=== PATIENT | female | born 1990 | race Caucasian/White ===

== ENCOUNTER 2019-02-10 21:55 | Emergency (ER) | payer OTHER ==
[2019-02-10 22:34] LABS: BILIRUBIN,URINE NEGATIVE (NEGATIVE); GLUCOSE, URINE (UA) NEGATIVE (NEGATIVE); KETONES,URINE (UA) NEGATIVE (NEGATIVE); LEUKOCYTE ESTERASE, URINE TRACE (NEGATIVE); NITRITE,URINE NEGATIVE (NEGATIVE); OCCULT BLOOD,URINE TRACE-INTA (NEGATIVE); PH,URINE 6.5 PH (5.0-7.5); PROTEIN,URINE NEGATIVE (NEGATIVE); UROBILINOGEN,URINE 0.2 (NORMAL) E.U./dL (NORMAL)
[2019-02-10] MEDS ORDERED: NITROFURANTOIN MACRO 100 MG CAPSULE PO STA (22:35)
[2019-02-10 22:38] LABS: CLARITY,URINE CLEAR (CLEAR)
--- NOTE | 2019-02-10 22:38 | ED Physician Documentation ---
PD HPI FEMALE - Stated complaint Stated Complaint: 14 WKS/FEM - Chief complaint Chief Complaint: UTI - History obtained from History obtained from: Patient - History of Present Illness Timing - onset: Today Timing - duration: Days (1) Timing - details: Gradual onset Pain level max: 5 Pain level max: 4 Associated symptoms: Back pain (low back), Dysuria, Urinary frequency. 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 : Chronic bladder infection Psych: Depression, Anxiety Musculoskeletal: None Derm: Psoriasis - Past Surgical History Past Surgical History: No - Present Medications Home Medications: Ambulatory Orders Medication Instructions Recorded Confirmed Nitrofurantoin Monohyd/M-Cryst 100 mg PO BID #10 capsule 02/10/19 [Macrobid 100 mg Capsule] Pnv No.95/Ferrous Fum/Folic AC 1 each PO DAILY 02/10/19 02/10/19 [ Caplet] - Allergies Allergies/Adverse Reactions: Allergies Allergy/AdvReac Type Severity Reaction Status Date / Time No Known Drug Allergies Allergy Verified 02/10/19 22:05 - Social History Does the pt smoke?: No Smoking Status: Never smoker Does the pt drink ETOH?: No Does the pt have substance abuse?: No Substance Use and Type: Marijuana - Immunizations Immunizations are current?: Yes PD ED PE NORMAL - Vitals Vital signs reviewed: Yes - General General: Alert and oriented X 3, No acute distress - HEENT HEENT: Moist mucous membranes - Cardiac Cardiac: RRR - Respiratory Respiratory: No respiratory distress, Clear bilaterally - Abdomen Abdomen: Soft, Non tender, Non distended - Back Back: No CVA TTP - Derm Derm: Warm and dry - Extremities Extremities: No edema - Neuro Neuro: Alert and oriented X 3 Results - Vitals Vitals: Vital Signs - 24 hr 02/10/19 02/10/19 22:00 22:50 Temperature 37.2 C Heart Rate 93 82 Respiratory 16 14 Rate Blood Pressure 138/73 H 131/74 H O2 Saturation 100 100 Oxygen O2 Source Room air - Labs Labs: Laboratory Tests 02/10/19 22:30 Urine Color YELLOW Urine Clarity CLEAR Urine pH 6.5 Ur Specific Williams 1.015 Urine Protein NEGATIVE Urine Glucose (UA) NEGATIVE Urine Ketones NEGATIVE Urine Occult Blood TRACE-INTA Urine Nitrite NEGATIVE Urine Bilirubin NEGATIVE Urine Urobilinogen 0.2 (NORMAL) Ur Leukocyte Esterase TRACE H Urine RBC 0-5 Urine WBC 0-3 Ur Squamous Epith Cells MOD Squamous H Amorphous Sediment Moderate Urine Bacteria Rare Ur Microscopic Review INDICATED Urine Culture Comments NOT INDICATED PD MEDICAL DECISION MAKING - ED course Complexity details: reviewed results, re-evaluated patient, considered differential, d/w patient ED course: 28-year-old female with sx c/w UTI. UA is unimpressive, but as she is 14 weeks . Pt will follow-up with OB for further care. Abd soft, nt, nd counseled that this could be an early appendicitis, but less likely with no abd tenderness. She will return if she fails to improve as expected. Will place on Macrobid for home. Patient counseled regarding signs and symptoms for which I believe and urgent re-evaluation would be necessary. Patient with good understanding of and agreement to plan and is comfortable going home at this time This document was made in part using voice recognition software. While efforts are made to proofread this document, sound alike and grammatical errors may occur. No vaginal bleeding or discharge. FHR 150bpm on bedside US. FM present. Images shown to mother. Departure - Departure Disposition: Home, Self Care Clinical Impression: Urinary tract infection Qualifiers: Urinary tract infection type: acute cystitis Hematuria presence: without hematuria Qualified Code(s): N30.00 - Acute cystitis without hematuria Condition: Good Instructions: ED UTI Cystitis Female Follow-Up: Paola Rothman MD [Primary Care Provider] - VALERIA RODRIGUEZ [Physician No Access] - Within 1 week Prescriptions: Nitrofurantoin Monohyd/M-Cryst [Macrobid 100 mg Capsule] 100 mg PO BID #10 capsule Comments: Take all antibiotics until gone. Return if you worsen. Return especially for increasing pain fevers or vomiting.
[2019-02-10 22:43] LABS: AMORPHOUS SEDIMENT,UR Moderate /LPF; BACTERIA,URINE Rare /HPF (None Seen); RBC,URINE 0-5 /HPF (0-5); SQUAMOUS EPITHELIAL CELL,UR MOD Squamous (<= Few)
[2019-02-10 22:50] VITALS: BP 131/74
== END 2019-02-10 23:00 | disposition home or self-care (01) ==
LOC: ED 21:55
DX: O99.89 Other specified diseases and conditions complicating pregnancy, childbirth and the puerperium (principal); N30.00 Acute cystitis without hematuria; Z3A.14 14 weeks gestation of pregnancy
CPT/HCPCS: 81001; 99283; 99284; A9270; 81003; 87086

== ENCOUNTER 2019-03-18 19:44 | Emergency (ER) | payer OTHER ==
[2019-03-18 20:18] LABS: BILIRUBIN,URINE NEGATIVE (NEGATIVE); GLUCOSE, URINE (UA) NEGATIVE (NEGATIVE); KETONES,URINE (UA) NEGATIVE (NEGATIVE); LEUKOCYTE ESTERASE, URINE NEGATIVE (NEGATIVE); NITRITE,URINE NEGATIVE (NEGATIVE); OCCULT BLOOD,URINE NEGATIVE (NEGATIVE); PROTEIN,URINE NEGATIVE (NEGATIVE); UROBILINOGEN,URINE 0.2 (NORMAL) E.U./dL (NORMAL)
[2019-03-18 20:20] LABS: CLARITY,URINE CLEAR (CLEAR)
--- NOTE | 2019-03-18 21:17 | ED Physician Documentation ---
PD HPI ABD PAIN - Stated complaint Stated Complaint: FEMALE - OB 19 WEEKS - Chief complaint Chief Complaint: Abd Pain - History obtained from History obtained from: Patient - History of Present Illness Timing - onset: Other (This is a G1 at 19 weeks gestation who helped move a refrigerator a couple of days ago and since then has had bandlike pelvic pain on both sides. No urinary complaints but did a UTI test at home that was positive. No fevers or back pain. No cramping or bleeding.) Review of Systems Constitutional: denies: Fever, Chills GI: denies: Nausea, Vomiting, Constipation, Diarrhea : denies: Dysuria, Frequency PD PAST MEDICAL HISTORY - Past Medical History Past Medical History: Yes Cardiovascular: None Respiratory: None Neuro: Motion sickness Endocrine/Autoimmune: None GI: Ulcers CARD HAND: None : Chronic bladder infection Psych: Depression, Anxiety Musculoskeletal: None Derm: Psoriasis - Past Surgical History Past Surgical History: No - Present Medications Home Medications: Ambulatory Orders Medication Instructions Recorded Confirmed Pnv No.95/Ferrous Fum/Folic AC 1 each PO DAILY 02/10/19 03/18/19 [ Caplet] - Allergies Allergies/Adverse Reactions: Allergies Allergy/AdvReac Type Severity Reaction Status Date / Time No Known Drug Allergies Allergy Verified 03/18/19 19:48 - Social History Does the pt smoke?: No Smoking Status: Never smoker Does the pt drink ETOH?: No Does the pt have substance abuse?: No - Immunizations Immunizations are current?: Yes PD ED PE NORMAL - Vitals Vital signs reviewed: Yes - General General: Alert and oriented X 3, No acute distress - Abdomen Abdomen: Other (Nontender gravid abdomen) - Female Female : Other (Bedside ultrasound shows single live intrauterine with a heart rate of 150) - Extremities Extremities: No edema, No calf tenderness / cord - Neuro Neuro: Alert and oriented X 3, Normal speech Results - Vitals Vitals: Vital Signs - 24 hr 03/18/19 19:48 Temperature 36.4 C L Heart Rate 91 Respiratory 18 Rate Blood Pressure 134/79 H O2 Saturation 100 Oxygen O2 Source Room air - Labs Labs: Laboratory Tests 03/18/19 20:01 Urine Color YELLOW Urine Clarity CLEAR Urine pH 7.0 Ur Specific [place] 1.010 Urine Protein NEGATIVE Urine Glucose (UA) NEGATIVE Urine Ketones NEGATIVE Urine Occult Blood NEGATIVE Urine Nitrite NEGATIVE Urine Bilirubin NEGATIVE Urine Urobilinogen 0.2 (NORMAL) Ur Leukocyte Esterase NEGATIVE Ur Microscopic Review NOT INDICATED Urine Culture Comments NOT INDICATED PD MEDICAL DECISION MAKING - ED course ED course: Nontender abdomen. Suspect this is round ligament pain as our urinalysis was negative. Departure - Departure Disposition: 01 Home, Self Care Clinical Impression: Round ligament pain Condition: Good Record reviewed to determine appropriate education?: Yes Instructions: ED Abdominal Pain Appendx Poss Comments: Return if worse, for new symptoms. Otherwise followup with your OB
[2019-03-18 21:28] VITALS: BP 128/70
== END 2019-03-18 21:30 | disposition home or self-care (01) ==
LOC: ED 19:44
DX: O99.89 Other specified diseases and conditions complicating pregnancy, childbirth and the puerperium (principal); R10.2 Pelvic and perineal pain; Z3A.19 19 weeks gestation of pregnancy
CPT/HCPCS: 81001; 81003; 87086; 99282; 99283

== ENCOUNTER 2019-05-01 05:56 | Outpatient (CLI) | payer OTHER ==
[2019-05-01 06:51] LABS: BILIRUBIN,URINE NEGATIVE (NEGATIVE); GLUCOSE, URINE (UA) NEGATIVE (NEGATIVE); KETONES,URINE (UA) NEGATIVE (NEGATIVE); LEUKOCYTE ESTERASE, URINE NEGATIVE (NEGATIVE); NITRITE,URINE NEGATIVE (NEGATIVE); OCCULT BLOOD,URINE NEGATIVE (NEGATIVE); PROTEIN,URINE NEGATIVE (NEGATIVE); UROBILINOGEN,URINE 0.2 (NORMAL) E.U./dL (NORMAL)
[2019-05-01 06:53] VITALS: BP 143/89
[2019-05-01 07:04] LABS: BACTERIA,URINE Rare /HPF (None Seen); CLARITY,URINE CLEAR (CLEAR); RBC,URINE 0-5 /HPF (0-5); SQUAMOUS EPITHELIAL CELL,UR MOD Squamous (<= Few)
--- NOTE | 2019-05-01 08:58 | Ultrasound Report ---
Reason: pre-term labor Procedure Date: 05/01/2019 Accession Number: [id number] / [id number] Procedure: US - OB Transvaginal CPT Code: Final Report FULL RESULT: EXAM: LIMITED OBSTETRICAL ULTRASOUND EXAM DATE: 05/01/2019 08:20 AM. CLINICAL HISTORY: Pre-term labor. COMPARISON: None. TECHNIQUE: Real-time sonographic evaluation of the fetus performed by the surgical garment inspector. Multiple sales representative health insurance static images were saved for review. Transvaginal imaging to more accurately evaluate cervical length/placental position/etc. DATING: Established EGA 24 weeks 6 days with FLORENCE 08/15/2019 GENERAL EVALUATION Tony . Cardiac activity: 145 bpm. Presentation: Transverse head to maternal left Placenta: Anterior position. MATERNAL STRUCTURES Cervical length: 3.3 cm IMPRESSION: 1. Tony live intrauterine with gestational age 24 weeks 6 days based on established FLORENCE. 2. Cervical length 3.3 cm RADIA
[2019-05-01 10:18] LABS: CANDIDA GROUP DNA NEGATIVE (NEGATIVE); CANDIDA KRUSEI DNA NEGATIVE (NEGATIVE); TRICHOMONAS VAGINALIS DNA NEGATIVE (NEGATIVE)
[2019-05-01 11:35] LABS: TRICHOMONAS VAGINALIS DNA NEGATIVE (NEGATIVE)
--- NOTE | 2019-05-05 18:34 | PROVIDER PROGRESS NOTE ---
- HPI Chief Complaint: Other ( @ 24w6d weeks gestation presented to triage c/o intermittent mid lower abdominal pain since 399. Denies N/V, LOF, VB or discharge. + movement. Had seen jenni OB who had recommended a maternity belt, did not improve. Here for labor assessment) Current : Current EDU 08/15/19 Gestation 24 Weeks and 6 Days 1 Para 0 Vital Signs Temperature 98.1 F 05/01/19 06:10 Heart Rate 100 05/01/19 06:10 Respiratory Rate 22 05/01/19 06:10 Blood Pressure 143/89 H 05/01/19 06:10 O2 Saturation 100 05/01/19 06:10 Temperature 98.1 F 05/01/19 06:10 Heart Rate 100 05/01/19 06:10 Respiratory Rate 22 05/01/19 06:10 Blood Pressure 143/89 H 05/01/19 06:10 O2 Saturation 100 05/01/19 06:10 - Exam GEN: NAD CV; RR RESP: CTAB ABD: gravid, S&NT; not able to replicate tenderness on exam EFM Appropriate for gestational age FFN neg Vaginitis panel positive for BV; otherwise wnl UA wnl TVCL 3.3 cm - Procedures OB Procedure Performed: Other (Transvaginal cervical length) Diagnosis/Indication for NST: labor NST Procedure: EFM 150 mild/mod 10x10 accels , occ vars TOCO: quiet AGA Service Date of procedure: 05/01/19 Procedure Details: NST performed: AGA with quiet tocometry FFN negative TVCL 3.3 cm AFFIRM positive for BV Findings: PTL: Reassuring TVCL in setting of negative FFN and quiescent tocometry. -No evidence of PTL VAGINITIS: Provided with rx for BV FWB: EFM appropriate for gestational age Reviewed differential for abdominal pain. Low concern for PTL or pathologic process Likely reflects combination of round ligament pain and irritability 2/2 BV Warning signs reviewed Discharge to home DOS: 05/01/19 DX: Abdominal pain in Vaginitis/bacterial vaginosis
== END 2019-05-01 12:37 | disposition home or self-care (01) ==
LOC: WFO 05:56 → FBP 05:58 → WFO 12:37
PROVIDERS: ATTEND Obstetrics & Gynecology
DX: O26.892 Other specified pregnancy related conditions, second trimester (principal); R10.30 Lower abdominal pain, unspecified; O23.592 Infection of other part of genital tract in pregnancy, second trimester; B96.89 Other specified bacterial agents as the cause of diseases classified elsewhere; Z3A.24 24 weeks gestation of pregnancy
CPT/HCPCS: 76817; 81001; 82731; 87086; 87491; 87591; 87661; 87801; 99213

== ENCOUNTER 2019-07-09 18:34 | Outpatient (CLI) | payer OTHER ==
[2019-07-09 18:46] VITALS: BP 133/78
--- NOTE | 2019-07-09 20:47 | PROCEDURE REPORT ---
- HPI Diagnosis/Indication for NST: Gestational Hypertension Current EDU 08/15/19 Gestation 34 Weeks and 5 Days 1 Para 0 Vital Signs Temperature 98.6 F 07/09/19 18:44 Heart Rate 89 07/09/19 18:44 Respiratory Rate 18 07/09/19 18:44 Blood Pressure 133/78 H 07/09/19 18:44 O2 Saturation 100 07/09/19 18:44 Temperature 98.6 F 07/09/19 18:44 Heart Rate 89 07/09/19 18:44 Respiratory Rate 18 07/09/19 18:44 Blood Pressure 133/78 H 07/09/19 18:44 O2 Saturation 100 07/09/19 18:44 - NST Procedure NST Procedure Start Date 07/09/19 Start Time 18:45 Stop Time 19:20 Vibroacoustic Stimulation Used No Patient States Movement Yes - Results and Plan Findings/Impression: Cat 1 NST Continue surveillance
== END 2019-07-09 19:25 | disposition home or self-care (01) ==
LOC: WFO 18:34 → FBP 18:37 → WFO 19:25
PROVIDERS: ATTEND Obstetrics & Gynecology
DX: O13.3 Gestational [pregnancy-induced] hypertension without significant proteinuria, third trimester (principal); Z3A.34 34 weeks gestation of pregnancy
CPT/HCPCS: 59025; 76816

== ENCOUNTER 2019-07-09 19:27 | Outpatient (CLI) | payer OTHER ==
--- NOTE | 2019-07-11 13:37 | Ultrasound Report ---
Reason: GESTATIONAL HTN, THIRD TRIMESTER Procedure Date: 07/09/2019 Accession Number: [id number] / [id number] Procedure: US - OB F/U or Repeat CPT Code: Final Report FULL RESULT: EXAM: FOLLOW-UP OBSTETRICAL ULTRASOUND EXAM DATE: 07/09/2019 08:25 PM. CLINICAL HISTORY: GESTATIONAL HTN, THIRD TRIMESTER. COMPARISON: OB TRANSVAGINAL 05/01/2019 7:48 AM. TECHNIQUE: Real-time sonographic evaluation of the fetus performed by the carbon blocks press operator. Multiple enrollment representative static images were saved for review. DATING: Established EGA 34 weeks 5 days with FLORENCE 08/15/2019 based on LMP. EGA 34 weeks 5 days with FLORENCE 08/15/2019 based on physician stated. EGA 33 weeks 2 days with FLORENCE 08/25/2019 based on the current ultrasound. GENERAL EVALUATION Tony . Cardiac activity: 128 bpm. movement: Visualized. Presentation: Cephalic. Placenta: Anterior position. Amniotic fluid: Normal. RY 13.3 cm. MVP 4.9 cm. BIOMETRY Bi-Parietal Diameter (BPD): 8.2 cm, 33 weeks 0 days Head Circumference (HC): 30.6 cm, 34 weeks 0 days Abdominal Circumference (AC): 29.5 cm, 33 weeks 3 days Femur Length (FL): 6.3 cm, 32 weeks 3 days Estimated Weight: 2138 g, 11th percentile for clinical age. MATERNAL STRUCTURES Cervix measures 4.3 cm in length by transabdominal ultrasound. IMPRESSION: 1. Estimated weight 2138 g, 11th percentile for age based on today's measurements. RADIA
== END 2019-07-09 19:28 | disposition home or self-care (01) ==
LOC: DI 19:27
PROVIDERS: ATTEND Obstetrics & Gynecology
DX: O13.3 Gestational [pregnancy-induced] hypertension without significant proteinuria, third trimester (principal)
CPT/HCPCS: 76816

== ENCOUNTER 2019-07-11 10:00 | Observation (INO) | payer OTHER ==
[2019-07-11 10:25] LABS: BASOPHILS % (AUTO) 0.2 %; EOSINOPHILS # (AUTO) 0.1 10^3/uL (0.0-0.7); EOSINOPHILS % (AUTO) 0.9 %; LYMPHOCYTES % (AUTO) 18.8 %; MEAN CORPUSCULAR HEMOGLOBIN 26.5 pg (27.0-31.0); MEAN PLATELET VOLUME 10.8 fL (7.9-10.8); MONOCYTES # (AUTO) 0.6 10^3/uL (0.0-1.0); MONOCYTES % (AUTO) 5.6 %; NEUTROPHILS # (AUTO) 7.9 10^3/uL (1.5-6.6); NEUTROPHILS % (AUTO) 73.8 %; PLT - PLATELET COUNT 274 10^3/uL (130-450); RED BLOOD COUNT 4.52 10^6/uL (4.20-5.40); RED CELL DISTRIBUTION WIDTH 13.7 % (12.0-15.0); WHITE BLOOD COUNT 10.7 x10^3/uL (4.8-10.8)
[2019-07-11 10:35] LABS: ALBUMIN 3.2 g/dL (3.2-5.5); ALBUMIN/GLOBULIN RATIO 0.8 (1.0-2.2); BILIRUBIN,TOTAL 0.5 mg/dL (0.2-1.0); CREATININE 0.8 mg/dL (0.4-1.0); URIC ACID 5.7 mg/dL (2.6-7.2)
[2019-07-11 10:45] LABS: CREATININE,URINE 67.1 mg/dL; PROTEIN/CREATININE RATIO,URINE 0.1 (<=0.2)
[2019-07-11] MEDS ORDERED: NIFEdipine ER 30 MG TABLET PO ONE (12:00)
[2019-07-11 16:03] VITALS: BP 146/84
--- NOTE | 2019-07-11 16:58 | HISTORY & PHYSICAL EXAMINATION ---
History of Present Illness - History of Present Illness HPI Comment/Other: Observation H&P and Discharge CC: elevated BP in clinic HPI: has been taking BP at home, this morning got a 170 systolic, had appointment in 30min and so didn't come to triage. Had visual changes for 10seconds yesterday. Has her usual tension headache not worse than usual. No upper abdominal pain. Some new swelling on eyelids but not much in the legs or hands. No VB, no LOF. Good FM. No UC. PMH: overweight, A1GDM, gestational hypertension, anxiety PSH: wisdom teeth Meds: PNV Allergies; NKDA SH: no t/e/d FH: mother had elevated blood pressures with her pregnancies OB: G1=current. Initial care at [facility]. Dating--08/15/19 by LMP Vax--s/p Tdap Labs--O+, Hct 34, 1h 181, abnormal 3h. Normal UA Neg Hep B, Hep C, syphilis, HIV, gc/ct. Varicella & rubella immune. Pap--listed as done 02/23/29 but result not scanned Genetic screen--Normal sequential screen Anatomy--normal, 88%ile, anterior placenta, normal fluid O: Initial BPs averaged 150s/100. Max SBP 180, max DBP 112. Alert, anxious, otherwise NAD Abd soft, nt/nd LE with trace edema DTR 3+ bilat patellar NST category 1 Sully neg P:C = 0.1, normal bloodwork A/P: 22yo G1 with gestational hypertension with high BPs of 180/112 and last EFW 11%ile yesterday (down from 88%ile at anatomy scan). BP responded well to nifedipine XL 30mg--now 140s/low 90s. Will continue this at home. Pt with normal P:C 0.1, normal PIH labs, no sx of preeclampsia. Will need to monitor very closely and deliver PRN proteinuria--plan on return to triage in 2d, then q3d until IOL for surveillance and P:C ratios. Continue checking BP 2x daily at home and PIH sx reviewed again. 37w IOL indicated for gestational HTN and arranged for 07/25. Note given for 's SO and for disability. A1 Gestational diabetes, stable, continue blood sugar checks Care gaps: will call Mon to arrange another OB visit. Needs GBS, ask about HSV, ask about flu vax. 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 : reports: Chronic bladder infection Psych: reports: Depression, Anxiety Musculoskeletal: reports: None Derm: reports: Psoriasis MRSA Hx?: No Meds/Allgy - Home Medications Home Medications: Ambulatory Orders Medication Instructions Recorded Confirmed Pnv No.95/Ferrous Fum/Folic AC 1 each PO DAILY 02/10/19 03/18/19 [ Caplet] - Allergies Allergies/Adverse Reactions: Allergies Allergy/AdvReac Type Severity Reaction Status Date / Time No Known Drug Allergies Allergy Verified 03/18/19 19:48 Exam - Vital Signs Vital Signs: Vital Signs x48h Temp Pulse Resp BP BP Pulse Ox 07/11/19 16:02 146/84 H 07/11/19 15:18 142/83 H 07/11/19 14:45 140/83 H 07/11/19 14:15 141/81 H 07/11/19 13:46 137/76 H 07/11/19 13:15 133/83 H 07/11/19 13:00 160/94 H 07/11/19 12:47 156/92 H 07/11/19 12:30 147/80 H 07/11/19 12:15 165/94 H 07/11/19 12:00 164/90 H 07/11/19 11:45 72 157/106 H 07/11/19 11:30 154/102 H 07/11/19 11:14 153/96 H 07/11/19 10:53 165/112 H 07/11/19 10:51 171/103 H 07/11/19 10:38 180/106 H 07/11/19 10:28 170/102 H 07/11/19 10:19 99.1 F 88 18 160/108 H 98 Conclusion/Plan - Lab Results Fish Bones: 07/11/19 10:19 07/11/19 10:19
--- NOTE | 2019-08-01 16:17 | PROVIDER PROGRESS NOTE ---
Subjective - Subjective Subjective: A/P: 22yo G1 with gestational hypertension with high BPs of 180/112 and last EFW 11%ile yesterday (down from 88%ile at anatomy scan). BP responded well to n ifedipine XL 30mg--now 140s/low 90s. Will continue this at home. Pt with normal P:C 0.1, normal PIH labs, no sx of preeclampsia. Will need to monitor very closely and deliver PRN proteinuria--plan on return to triage in 2d, then q3d until IOL for surveillance and P:C ratios. Continue checking BP 2x daily at home and PIH sx reviewed again. 37w IOL indicated for gestational HTN and arranged for 07/25. Note given for 's SO and for disability. A1 Gestational diabetes, stable, continue blood sugar checks Objective - Lab Results Fish Bones: 07/11/19 10:19 07/11/19 10:19
== END 2019-07-11 16:39 | disposition home or self-care (01) ==
LOC: WFO 10:00 → FBP 10:04 → WFO 11:24 → FBP 11:25
PROVIDERS: ADMIT Obstetrics & Gynecology; ATTEND Obstetrics & Gynecology
DX: O13.3 Gestational [pregnancy-induced] hypertension without significant proteinuria, third trimester (principal); O99.353 Diseases of the nervous system complicating pregnancy, third trimester; G44.209 Tension-type headache, unspecified, not intractable; Z3A.00 Weeks of gestation of pregnancy not specified
CPT/HCPCS: 36415; 59025; 80053; 82570; 84156; 84550; 85025; A9270; G0378; 99214

== ENCOUNTER 2019-07-12 01:40 | Outpatient (CLI) | payer OTHER ==
[2019-07-12 02:36] LABS: CREATININE,URINE 20.5 mg/dL; TOTAL PROTEIN,URINE TIMED < 6 mg/dL
[2019-07-12 03:42] VITALS: BP 121/68
--- NOTE | 2019-08-22 10:18 | PROCEDURE REPORT ---
- HPI Diagnosis/Indication for NST: Gestational Hypertension Current EDU 08/15/19 Gestation 35 Weeks and 1 Days 1 Para 0 Vital Signs Temperature 98.1 F 07/12/19 01:53 Heart Rate 103 H 07/12/19 01:53 Respiratory Rate 18 07/12/19 01:53 Blood Pressure 154/90 H 07/12/19 01:53 Temperature 98.1 F 07/12/19 01:53 Heart Rate 94 07/12/19 02:15 Respiratory Rate 18 07/12/19 02:45 Blood Pressure 121/68 07/12/19 02:45 O2 Saturation - NST Procedure NST Procedure Start Date 07/12/19 Start Time 01:53 Stop Time 02:20 Vibroacoustic Stimulation Used No Patient States Movement Yes - Results and Plan Findings/Impression: Category 1 NST Continue ongoing surveillance. Date of servicd
== END 2019-07-12 03:20 | disposition home or self-care (01) ==
LOC: WFO 01:40 → FBP 01:41 → WFO 03:20
PROVIDERS: ATTEND Obstetrics & Gynecology
DX: O13.3 Gestational [pregnancy-induced] hypertension without significant proteinuria, third trimester (principal); Z3A.35 35 weeks gestation of pregnancy
CPT/HCPCS: 59025; 82570; 84156; 99213

== ENCOUNTER 2019-07-14 07:00 | Outpatient (CLI) | payer OTHER | END 2019-07-14 23:59 | disposition home or self-care (01) | LOC: LAB.R 07:00 | PROVIDERS: ATTEND Obstetrics & Gynecology | DX: Z36.85 Encounter for antenatal screening for Streptococcus B (principal) | CPT/HCPCS: 87797 ==

== ENCOUNTER 2019-07-14 16:27 | Inpatient (IN) | payer OTHER ==
[2019-07-14] MEDS ORDERED: BETAMETHASONE 30 MG/5 ML VIAL IM ONE (16:39)
[2019-07-14] MEDS: LABETALOL 100 MG TABLET PO SCH (17:22)
[2019-07-14 17:56] LABS: BASOPHILS % (AUTO) 0.2 %; EOSINOPHILS # (AUTO) 0.1 10^3/uL (0.0-0.7); EOSINOPHILS % (AUTO) 0.6 %; HGB - HEMOGLOBIN 11.5 g/dL (12.0-16.0); LYMPHOCYTES # (AUTO) 2.5 10^3/uL (1.5-3.5); LYMPHOCYTES % (AUTO) 19.3 %; MEAN CORPUSCULAR HEMOGLOBIN 26.7 pg (27.0-31.0); MEAN CORPUSCULAR HGB CONC 32.6 g/dL (32.0-36.0); MEAN CORPUSCULAR VOLUME 82.1 fL (81.0-99.0); MEAN PLATELET VOLUME 10.8 fL (7.9-10.8); MONOCYTES # (AUTO) 0.8 10^3/uL (0.0-1.0); MONOCYTES % (AUTO) 6.2 %; NEUTROPHILS # (AUTO) 9.3 10^3/uL (1.5-6.6); NEUTROPHILS % (AUTO) 73.3 %; PLT - PLATELET COUNT 278 10^3/uL (130-450); WHITE BLOOD COUNT 12.7 x10^3/uL (4.8-10.8)
[2019-07-14 17:57] LABS: BILIRUBIN,URINE NEGATIVE (NEGATIVE); GLUCOSE, URINE (UA) NEGATIVE (NEGATIVE); KETONES,URINE (UA) NEGATIVE (NEGATIVE); LEUKOCYTE ESTERASE, URINE TRACE (NEGATIVE); NITRITE,URINE NEGATIVE (NEGATIVE); OCCULT BLOOD,URINE NEGATIVE (NEGATIVE); PROTEIN,URINE NEGATIVE (NEGATIVE); UROBILINOGEN,URINE 0.2 (NORMAL) E.U./dL (NORMAL)
[2019-07-14 18:01] LABS: CLARITY,URINE CLEAR (CLEAR)
[2019-07-14 18:02] LABS: CREATININE,URINE 185.6 mg/dL; PROTEIN/CREATININE RATIO,URINE 0.1 (<=0.2)
[2019-07-14 18:20] LABS: ALBUMIN 3.3 g/dL (3.2-5.5); ALBUMIN/GLOBULIN RATIO 0.8 (1.0-2.2); ALKALINE PHOSPHATASE 103 IU/L (42-121); ALT ALANINE AMINOTRANSFERASE 11 IU/L (10-60); AST ASPARTATE AMINOTRANSFERASE 17 IU/L (10-42); BILIRUBIN,TOTAL < 0.2 mg/dL (0.2-1.0); BUN - BLOOD UREA NITROGEN 18 mg/dL (6-20); CALCIUM 9.4 mg/dL (8.5-10.3); CARBON DIOXIDE - CO2 17 mmol/L (21-32); CHLORIDE 106 mmol/L (101-111); CREATININE 0.8 mg/dL (0.4-1.0); GFR - MDRD 86 (>89); GLUCOSE 83 mg/dL (70-100); SODIUM 134 mmol/L (135-145); TOTAL PROTEIN 7.3 g/dL (6.7-8.2); URIC ACID 6.4 mg/dL (2.6-7.2)
[2019-07-14] MEDS ORDERED: MAG HYDROX/AL HYDROX/SIMETH 30 ML UDC PO PRN (19:14)
--- NOTE | 2019-07-14 20:39 | HISTORY & PHYSICAL EXAMINATION ---
Admit History - Visit Reason Visit Reason: Other - : 1 Parity: 0 Care: positive: Renuka Risk/History: positive: Gestational diabetes, induced HTN Complications This : positive: Gestational diabetes, induced HTN Smoking Status: Never smoker - Mother's Labs Mother's Blood Type: positive: O Mother's RH: positive: Positive GBS: positive: Other (pending) Rubella Status: positive: Immune - Other Maternal History Other Maternal History: PMH: overweight, A1GDM, gestational hypertension, anxiety PSH: wisdom teeth Meds: PNV Allergies; NKDA SH: no t/e/d FH: mother had elevated blood pressures with her pregnancies OB: G1=current. Initial care at [facility]. Dating--08/15/19 by LMP Vax--s/p Tdap and flu vax Labs--O+, Hct 34, 1h 181, abnormal 3h. Normal UA Neg Hep B, Hep C, syphilis, HIV, gc/ct. Varicella & rubella immune. Pap--listed as done 02/23/29 but result not scanned Genetic screen--Normal sequential screen Anatomy--normal, 88%ile, anterior placenta, normal fluid US for growth 07/09/19 11%ile, RY 13 HSV--no hx GBS--pending Patient is a 28 yo at 35w3d here with GHTN with severe range pressures Patient was seen in clinic today for fu of severe range blood pressures. Initial elevated BP noted at 24 weeks in triage on 05/01/19. Patient had been getting care at [facility]; complicated by A1DM. Had been seen in triage on 07/02/19 and had mild range blood pressures. US for growth on 07/09/19 was 11%ile with normal RY; change from 88%ile at [facility]. Presented on 07/11/19 with headache and severe range blood pressures. Discharged to home on nifedipine 30 mg XL. Continued to monitor at home and reports SBPs of 170 and DBPs 110 intermittently and returned to triage for further assessment. [facility] labs wnl. Presented to clinic with mild range pressures. Had been discharged with labetalol to be titrated to blood pressures and had already given herself two doses this am. No OSUNA at present but did have OSUNA over the weekend. Intermittent sparkling lights, not more that a few seconds induration and occurred in the shower only this am. No BMZ given to date. GBS collected in clinic. Meds/Allgy - Home Medications Home Medications: Ambulatory Orders Medication Instructions Recorded Confirmed Pnv No.95/Ferrous Fum/Folic AC 1 each PO DAILY 02/10/19 03/18/19 [ Caplet] - Allergies Allergies/Adverse Reactions: Allergies Allergy/AdvReac Type Severity Reaction Status Date / Time No Known Drug Allergies Allergy Verified 03/18/19 19:48 Review of Systems - Other Findings Other Findings: As per HPI, otherwise remaining systems are normal Physical - Abdominal Exam Vital Signs: 141/87 84 Contraction Frequency (min/apart): quiet - Monitoring Heart Rate Baseline: 140 Strip Review: positive: Category I - Vaginal Exam Membranes: positive: Membranes intact - Speculum Exam Speculum Exam Performed: positive: No Plan for Labor - Plan For Labor Plan for Labor: 28 yo at 35w3d with PIH/ A1DM GESTATIONAL HTN: Conferred with Dr. Tremayne Xiong of Maternal Medicine Recommendations: -Admit patient for observation and to establish scheduled anti-hypertensive regimen Recommends labetalol 200 mg po TID -Administer BMZ in anticipation of possible delivery -TID NST while undergoing medication adjustment -24 hour urine protein and repeat PIH labs In the absence of worsening BPs or progression into pre-eclampsia with severe fe atures, will DC to home after steroid complete -FU with MFM in [place] to reassess growth and dopplers -Cont with twice weekly NST and weekly RY until IOL at 37 wga FWB: EFW 11%ile, Cat I tracing, GBS pending, vertex by US -Fundal height was 30 cm in clinic today; sending for fluid level check and dopplers. -GBS pending -BMZ today and in24 hours -TID NST A1DM: Check fasting glucose and 1 hour PP Anticipate in-patient care for more than 24 hours
[2019-07-14] MEDS ORDERED: CALCIUM CARBONATE CHEW 500 MG TABLET PO SCH (21:00)
--- NOTE | 2019-07-14 21:23 | Ultrasound Report ---
Reason: severe gestational hypertension, gest. diabetes Procedure Date: 07/14/2019 Accession Number: [id number] / [id number] Procedure: US - OB Limited CPT Code: Final Report FULL RESULT: EXAM: LIMITED OBSTETRICAL ULTRASOUND EXAM DATE: 07/14/2019 08:35 PM. CLINICAL HISTORY: Severe gestational hypertension, gestational diabetes. Check RY and umbilical Doppler. COMPARISON: OB F/U OR REPEAT 07/09/2019 7:46 PM. TECHNIQUE: Real-time sonographic evaluation of the fetus performed by the diesel stationary engineer. Multiple manufacturer's service representative static images were saved for review. Additional transvaginal imaging to more accurately evaluate cervical length/placental position/etc. DATING: Established EGA 35 weeks 3 days with FLORENCE 08/15/2019. GENERAL EVALUATION Tony . Cardiac activity: 137 bpm. movement: Visualized. Presentation: Cephalic. Placenta: Anterior position. Amniotic fluid: Normal. RY 11.9 cm. MVP 4.1 cm. Umbilical Doppler S/D ratios 4.2, 5.5 and 6, elevated. IMPRESSION: 1. Tony live intrauterine with gestational age 35 weeks 3 days based on established FLORENCE, 08/15/2019. 2. Amniotic fluid: Normal. RY 11.9 cm. MVP 4.1 cm. 3. Elevated umbilical Doppler S/D ratios, which can be seen with intrauterine growth restriction or pre-eclampsia. Correlate clinically. RADIA
[2019-07-15] MEDS: LABETALOL 100 MG TABLET PO SCH ×3 (01:13→16:43)
[2019-07-15] MEDS: SODIUM CHLORIDE FLUSH 0.9% 10 ML SYRINGE IVP PRN ×2 (01:14→08:46)
[2019-07-15 08:50] VITALS: BP 134/84
[2019-07-15] MEDS ORDERED: LACTATED RINGERS 1,000 ML IV ONE (12:32)
[2019-07-15] MEDS ORDERED: MAGNESIUM SULFATE 2 GRAM 4 GM/100 ML BAG IV ONE (12:32)
[2019-07-15] MEDS ORDERED: MAGNESIUM SULFATE IN WATER 20 GM/500 ML IV.SOLN IV ONE (12:32)
[2019-07-15] MEDS: MAGNESIUM SULFATE 2 GRAM 2 GM/50 ML BAG IV SCH ×2 (12:45→13:07)
--- NOTE | 2019-07-15 12:57 | PROVIDER PROGRESS NOTE ---
Subjective - Prog Note Date Prog Note Date: 07/15/19 Prog Note Time: 09:00 - Subjective Subjective: Patient is doing well. Denies OSUNA/vision change/RUQ pain. Blood sugars trending up with steroid administration. Endorses FM. Denies LOF/VB/CTX. BPs in normal to mild range on current dose of labetalol. Objective - Vital Signs/Intake & Output Vital Signs: Vital Signs x48h Temp Pulse Resp BP Pulse Ox 07/15/19 08:50 106 H 20 134/84 H 100 07/15/19 08:00 98.2 F 91 18 122/68 100 07/15/19 07:43 98.2 F 91 18 122/68 100 Intake & Output: Intake & Output 07/12/19 07/13/19 07/14/19 07/15/19 23:59 23:59 23:59 23:59 Intake Total 480 300 Balance 480 300 - Objective General Appearance: positive: No acute distress Neck: positive: Nml inspection Respiratory: positive: No respiratory distress Cardiovascular: positive: Regular rate & rhythm Abdomen: positive: Non-tender, Other (gravid, soft and non-tender) Back: positive: Nml inspection Skin: positive: Color nml Extremities: positive: Non-tender, No pedal edema Neurologic/Psychiatric: positive: Oriented x3 - Lab Results Fish Bones: 07/14/19 17:40 07/14/19 17:40 Other Labs: Lab Results x24hrs 07/15/19 07/15/19 07/14/19 Range/Units 09:13 07:37 19:22 WBC (4.8-10.8) x10^3/uL RBC (4.20-5.40) 10^6/uL Hgb (12.0-16.0) g/dL Hct (37.0-47.0) % MCV (81.0-99.0) fL MCH (27.0-31.0) pg MCHC (32.0-36.0) g/dL RDW (12.0-15.0) % Plt Count (130-450) 10^3/uL MPV (7.9-10.8) fL Neut # (Auto) (1.5-6.6) 10^3/uL Lymph # (Auto) (1.5-3.5) 10^3/uL [place] # (Auto) (0.0-1.0) 10^3/uL Eos # (Auto) (0.0-0.7) 10^3/uL Baso # (Auto) (0.0-0.1) 10^3/uL Absolute Nucleated RBC x10^3/uL Nucleated RBC % /100WBC Sodium (135-145) mmol/L Potassium (3.5-5.0) mmol/L Chloride (101-111) mmol/L Carbon Dioxide (21-32) mmol/L Anion Gap (6-13) BUN (6-20) mg/dL Creatinine (0.4-1.0) mg/dL Estimated GFR (MDRD) (>89) Glucose (70-100) mg/dL POC Whole Bld Glucose 163 H 103 H 124 H (70 - 100) mg/dL Uric Acid (2.6-7.2) mg/dL Calcium (8.5-10.3) mg/dL Total Bilirubin (0.2-1.0) mg/dL AST (10-42) IU/L ALT (10-60) IU/L Alkaline Phosphatase (42-121) IU/L Lactate Dehydrogenase (91-225) IU/L Total Protein (6.7-8.2) g/dL Albumin (3.2-5.5) g/dL Globulin (2.1-4.2) g/dL Albumin/Globulin Ratio (1.0-2.2) Urine Color Urine Clarity (CLEAR) Urine pH (5.0-7.5) PH Ur Specific [place] (1.002-1.030) Urine Protein (NEGATIVE) mg/dL Urine Glucose (UA) (NEGATIVE) mg/dL Urine Ketones (NEGATIVE) mg/dL Urine Occult Blood (NEGATIVE) Urine Nitrite (NEGATIVE) Urine Bilirubin (NEGATIVE) Urine Urobilinogen (NORMAL) E.U./dL Ur Leukocyte Esterase (NEGATIVE) Urine Creatinine mg/dL Ur Total Protein Timed mg/dL Protein/Creatinin Ratio (<=0.2) 07/14/19 07/14/19 07/14/19 Range/Units 17:40 17:40 17:40 WBC 12.7 H (4.8-10.8) x10^3/uL RBC 4.30 (4.20-5.40) 10^6/uL Hgb 11.5 L (12.0-16.0) g/dL Hct 35.3 L (37.0-47.0) % MCV 82.1 (81.0-99.0) fL MCH 26.7 L (27.0-31.0) pg MCHC 32.6 (32.0-36.0) g/dL RDW 14.0 (12.0-15.0) % Plt Count 278 (130-450) 10^3/uL MPV 10.8 (7.9-10.8) fL Neut # (Auto) 9.3 H (1.5-6.6) 10^3/uL Lymph # (Auto) 2.5 (1.5-3.5) 10^3/uL [place] # (Auto) 0.8 (0.0-1.0) 10^3/uL Eos # (Auto) 0.1 (0.0-0.7) 10^3/uL Baso # (Auto) 0.0 (0.0-0.1) 10^3/uL Absolute Nucleated RBC 0.00 x10^3/uL Nucleated RBC % 0.0 /100WBC Sodium 134 L (135-145) mmol/L Potassium 3.7 (3.5-5.0) mmol/L Chloride 106 (101-111) mmol/L Carbon Dioxide 17 L (21-32) mmol/L Anion Gap 11.0 (6-13) BUN 18 (6-20) mg/dL Creatinine 0.8 (0.4-1.0) mg/dL Estimated GFR (MDRD) 86 L (>89) Glucose 83 (70-100) mg/dL POC Whole Bld Glucose (70 - 100) mg/dL Uric Acid 6.4 (2.6-7.2) mg/dL Calcium 9.4 (8.5-10.3) mg/dL Total Bilirubin < 0.2 L (0.2-1.0) mg/dL AST 17 (10-42) IU/L ALT 11 (10-60) IU/L Alkaline Phosphatase 103 (42-121) IU/L Lactate Dehydrogenase 151 (91-225) IU/L Total Protein 7.3 (6.7-8.2) g/dL Albumin 3.3 (3.2-5.5) g/dL Globulin 4.0 (2.1-4.2) g/dL Albumin/Globulin Ratio 0.8 L (1.0-2.2) Urine Color Urine Clarity (CLEAR) Urine pH (5.0-7.5) PH Ur Specific [place] (1.002-1.030) Urine Protein (NEGATIVE) mg/dL Urine Glucose (UA) (NEGATIVE) mg/dL Urine Ketones (NEGATIVE) mg/dL Urine Occult Blood (NEGATIVE) Urine Nitrite (NEGATIVE) Urine Bilirubin (NEGATIVE) Urine Urobilinogen (NORMAL) E.U./dL Ur Leukocyte Esterase (NEGATIVE) Urine Creatinine mg/dL Ur Total Protein Timed mg/dL Protein/Creatinin Ratio (<=0.2) 07/14/19 07/14/19 Range/Units 16:40 16:40 WBC (4.8-10.8) x10^3/uL RBC (4.20-5.40) 10^6/uL Hgb (12.0-16.0) g/dL Hct (37.0-47.0) % MCV (81.0-99.0) fL MCH (27.0-31.0) pg MCHC (32.0-36.0) g/dL RDW (12.0-15.0) % Plt Count (130-450) 10^3/uL MPV (7.9-10.8) fL Neut # (Auto) (1.5-6.6) 10^3/uL Lymph # (Auto) (1.5-3.5) 10^3/uL [place] # (Auto) (0.0-1.0) 10^3/uL Eos # (Auto) (0.0-0.7) 10^3/uL Baso # (Auto) (0.0-0.1) 10^3/uL Absolute Nucleated RBC x10^3/uL Nucleated RBC % /100WBC Sodium (135-145) mmol/L Potassium (3.5-5.0) mmol/L Chloride (101-111) mmol/L Carbon Dioxide (21-32) mmol/L Anion Gap (6-13) BUN (6-20) mg/dL Creatinine (0.4-1.0) mg/dL Estimated GFR (MDRD) (>89) Glucose (70-100) mg/dL POC Whole Bld Glucose (70 - 100) mg/dL Uric Acid (2.6-7.2) mg/dL Calcium (8.5-10.3) mg/dL Total Bilirubin (0.2-1.0) mg/dL AST (10-42) IU/L ALT (10-60) IU/L Alkaline Phosphatase (42-121) IU/L Lactate Dehydrogenase (91-225) IU/L Total Protein (6.7-8.2) g/dL Albumin (3.2-5.5) g/dL Globulin (2.1-4.2) g/dL Albumin/Globulin Ratio (1.0-2.2) Urine Color YELLOW Urine Clarity CLEAR (CLEAR) Urine pH 6.0 (5.0-7.5) PH Ur Specific [place] >=1.030 H (1.002-1.030) Urine Protein NEGATIVE (NEGATIVE) mg/dL Urine Glucose (UA) NEGATIVE (NEGATIVE) mg/dL Urine Ketones NEGATIVE (NEGATIVE) mg/dL Urine Occult Blood NEGATIVE (NEGATIVE) Urine Nitrite NEGATIVE (NEGATIVE) Urine Bilirubin NEGATIVE (NEGATIVE) Urine Urobilinogen 0.2 (NORMAL) (NORMAL) E.U./dL Ur Leukocyte Esterase TRACE H (NEGATIVE) Urine Creatinine 185.6 mg/dL Ur Total Protein Timed 19 mg/dL Protein/Creatinin Ratio 0.1 (<=0.2) Assessment/Plan - Problem List (1) Gestational hypertension Impression: 28 yo at 35w4d with PIH Hx of severe range pressures, normal labs: -BPs currently in mild range to normal on labetalol 200 mg po TID -25 hour urine pending FWB: EFW 11%ile on 07/09/2019. FH 30, normal RY on 07/14/19 us -Elevated dopplers -GBS pending -Cat I tracing -BMZ 07/14/19 A1DM: Diet controlled -Blood sugars trending up with steroid administration Not yet meeting range for medical intervention Cont in-patient care
[2019-07-15] MEDS ORDERED: LACTATED RINGERS 1,000 ML IV SCH (13:00)
[2019-07-15] MEDS ORDERED: MAGNESIUM SULFATE IN WATER 20 GM/500 ML IV.SOLN IV SCH (13:00)
[2019-07-15] MEDS ORDERED: BETAMETHASONE 30 MG/5 ML VIAL IM ONE (17:00)
[2019-07-15 17:21] LABS: TOTAL VOLUME 24HRS,URINE 3000 mL
[2019-07-15 17:43] LABS: TOTAL PROTEIN,URINE TIMED < 6 mg/dL
--- NOTE | 2019-07-15 17:52 | PROVIDER PROGRESS NOTE ---
Subjective - Prog Note Date Prog Note Date: 07/15/19 Prog Note Time: 17:50 - Subjective Subjective: Patient reporting consistent scotomata; sparkling lights No OSUNA BPS in appropriate range Objective - Vital Signs/Intake & Output Intake & Output: Intake & Output 07/12/19 07/13/19 07/14/19 07/15/19 23:59 23:59 23:59 23:59 Intake Total 480 350 Output Total 3000 Balance 480 -2650 - Lab Results Fish Bones: 07/14/19 17:40 07/14/19 17:40 Other Labs: Lab Results x24hrs 07/15/19 07/15/19 07/15/19 Range/Units 17:29 16:42 13:37 WBC (4.8-10.8) x10^3/uL RBC (4.20-5.40) 10^6/uL Hgb (12.0-16.0) g/dL Hct (37.0-47.0) % MCV (81.0-99.0) fL MCH (27.0-31.0) pg MCHC (32.0-36.0) g/dL RDW (12.0-15.0) % Plt Count (130-450) 10^3/uL MPV (7.9-10.8) fL Neut # (Auto) (1.5-6.6) 10^3/uL Lymph # (Auto) (1.5-3.5) 10^3/uL [place] # (Auto) (0.0-1.0) 10^3/uL Eos # (Auto) (0.0-0.7) 10^3/uL Baso # (Auto) (0.0-0.1) 10^3/uL Absolute Nucleated RBC x10^3/uL Nucleated RBC % /100WBC Sodium (135-145) mmol/L Potassium (3.5-5.0) mmol/L Chloride (101-111) mmol/L Carbon Dioxide (21-32) mmol/L Anion Gap (6-13) BUN (6-20) mg/dL Creatinine (0.4-1.0) mg/dL Estimated GFR (MDRD) (>89) Glucose (70-100) mg/dL POC Whole Bld Glucose 138 H 113 H (70 - 100) mg/dL Uric Acid (2.6-7.2) mg/dL Calcium (8.5-10.3) mg/dL Total Bilirubin (0.2-1.0) mg/dL AST (10-42) IU/L ALT (10-60) IU/L Alkaline Phosphatase (42-121) IU/L Lactate Dehydrogenase (91-225) IU/L Total Protein (6.7-8.2) g/dL Albumin (3.2-5.5) g/dL Globulin (2.1-4.2) g/dL Albumin/Globulin Ratio (1.0-2.2) Urine Color Urine Clarity (CLEAR) Urine pH (5.0-7.5) PH Ur Specific [place] (1.002-1.030) Urine Protein (NEGATIVE) mg/dL Urine Glucose (UA) (NEGATIVE) mg/dL Urine Ketones (NEGATIVE) mg/dL Urine Occult Blood (NEGATIVE) Urine Nitrite (NEGATIVE) Urine Bilirubin (NEGATIVE) Urine Urobilinogen (NORMAL) E.U./dL Ur Leukocyte Esterase (NEGATIVE) Ur 24 Hour Volume 3000 mL Urine Creatinine mg/dL Ur Total Protein 24 Hr Not Reportable Ur Total Protein Timed < 6 mg/dL Protein/Creatinin Ratio (<=0.2) 07/15/19 07/15/19 07/14/19 Range/Units 09:13 07:37 19:22 WBC (4.8-10.8) x10^3/uL RBC (4.20-5.40) 10^6/uL Hgb (12.0-16.0) g/dL Hct (37.0-47.0) % MCV (81.0-99.0) fL MCH (27.0-31.0) pg MCHC (32.0-36.0) g/dL RDW (12.0-15.0) % Plt Count (130-450) 10^3/uL MPV (7.9-10.8) fL Neut # (Auto) (1.5-6.6) 10^3/uL Lymph # (Auto) (1.5-3.5) 10^3/uL [place] # (Auto) (0.0-1.0) 10^3/uL Eos # (Auto) (0.0-0.7) 10^3/uL Baso # (Auto) (0.0-0.1) 10^3/uL Absolute Nucleated RBC x10^3/uL Nucleated RBC % /100WBC Sodium (135-145) mmol/L Potassium (3.5-5.0) mmol/L Chloride (101-111) mmol/L Carbon Dioxide (21-32) mmol/L Anion Gap (6-13) BUN (6-20) mg/dL Creatinine (0.4-1.0) mg/dL Estimated GFR (MDRD) (>89) Glucose (70-100) mg/dL POC Whole Bld Glucose 163 H 103 H 124 H (70 - 100) mg/dL Uric Acid (2.6-7.2) mg/dL Calcium (8.5-10.3) mg/dL Total Bilirubin (0.2-1.0) mg/dL AST (10-42) IU/L ALT (10-60) IU/L Alkaline Phosphatase (42-121) IU/L Lactate Dehydrogenase (91-225) IU/L Total Protein (6.7-8.2) g/dL Albumin (3.2-5.5) g/dL Globulin (2.1-4.2) g/dL Albumin/Globulin Ratio (1.0-2.2) Urine Color Urine Clarity (CLEAR) Urine pH (5.0-7.5) PH Ur Specific [place] (1.002-1.030) Urine Protein (NEGATIVE) mg/dL Urine Glucose (UA) (NEGATIVE) mg/dL Urine Ketones (NEGATIVE) mg/dL Urine Occult Blood (NEGATIVE) Urine Nitrite (NEGATIVE) Urine Bilirubin (NEGATIVE) Urine Urobilinogen (NORMAL) E.U./dL Ur Leukocyte Esterase (NEGATIVE) Ur 24 Hour Volume mL Urine Creatinine mg/dL Ur Total Protein 24 Hr Ur Total Protein Timed mg/dL Protein/Creatinin Ratio (<=0.2) 07/14/19 07/14/19 07/14/19 Range/Units 17:40 17:40 17:40 WBC 12.7 H (4.8-10.8) x10^3/uL RBC 4.30 (4.20-5.40) 10^6/uL Hgb 11.5 L (12.0-16.0) g/dL Hct 35.3 L (37.0-47.0) % MCV 82.1 (81.0-99.0) fL MCH 26.7 L (27.0-31.0) pg MCHC 32.6 (32.0-36.0) g/dL RDW 14.0 (12.0-15.0) % Plt Count 278 (130-450) 10^3/uL MPV 10.8 (7.9-10.8) fL Neut # (Auto) 9.3 H (1.5-6.6) 10^3/uL Lymph # (Auto) 2.5 (1.5-3.5) 10^3/uL [place] # (Auto) 0.8 (0.0-1.0) 10^3/uL Eos # (Auto) 0.1 (0.0-0.7) 10^3/uL Baso # (Auto) 0.0 (0.0-0.1) 10^3/uL Absolute Nucleated RBC 0.00 x10^3/uL Nucleated RBC % 0.0 /100WBC Sodium 134 L (135-145) mmol/L Potassium 3.7 (3.5-5.0) mmol/L Chloride 106 (101-111) mmol/L Carbon Dioxide 17 L (21-32) mmol/L Anion Gap 11.0 (6-13) BUN 18 (6-20) mg/dL Creatinine 0.8 (0.4-1.0) mg/dL Estimated GFR (MDRD) 86 L (>89) Glucose 83 (70-100) mg/dL POC Whole Bld Glucose (70 - 100) mg/dL Uric Acid 6.4 (2.6-7.2) mg/dL Calcium 9.4 (8.5-10.3) mg/dL Total Bilirubin < 0.2 L (0.2-1.0) mg/dL AST 17 (10-42) IU/L ALT 11 (10-60) IU/L Alkaline Phosphatase 103 (42-121) IU/L Lactate Dehydrogenase 151 (91-225) IU/L Total Protein 7.3 (6.7-8.2) g/dL Albumin 3.3 (3.2-5.5) g/dL Globulin 4.0 (2.1-4.2) g/dL Albumin/Globulin Ratio 0.8 L (1.0-2.2) Urine Color Urine Clarity (CLEAR) Urine pH (5.0-7.5) PH Ur Specific [place] (1.002-1.030) Urine Protein (NEGATIVE) mg/dL Urine Glucose (UA) (NEGATIVE) mg/dL Urine Ketones (NEGATIVE) mg/dL Urine Occult Blood (NEGATIVE) Urine Nitrite (NEGATIVE) Urine Bilirubin (NEGATIVE) Urine Urobilinogen (NORMAL) E.U./dL Ur Leukocyte Esterase (NEGATIVE) Ur 24 Hour Volume mL Urine Creatinine mg/dL Ur Total Protein 24 Hr Ur Total Protein Timed mg/dL Protein/Creatinin Ratio (<=0.2) 07/14/19 07/14/19 Range/Units 16:40 16:40 WBC (4.8-10.8) x10^3/uL RBC (4.20-5.40) 10^6/uL Hgb (12.0-16.0) g/dL Hct (37.0-47.0) % MCV (81.0-99.0) fL MCH (27.0-31.0) pg MCHC (32.0-36.0) g/dL RDW (12.0-15.0) % Plt Count (130-450) 10^3/uL MPV (7.9-10.8) fL Neut # (Auto) (1.5-6.6) 10^3/uL Lymph # (Auto) (1.5-3.5) 10^3/uL [place] # (Auto) (0.0-1.0) 10^3/uL Eos # (Auto) (0.0-0.7) 10^3/uL Baso # (Auto) (0.0-0.1) 10^3/uL Absolute Nucleated RBC x10^3/uL Nucleated RBC % /100WBC Sodium (135-145) mmol/L Potassium (3.5-5.0) mmol/L Chloride (101-111) mmol/L Carbon Dioxide (21-32) mmol/L Anion Gap (6-13) BUN (6-20) mg/dL Creatinine (0.4-1.0) mg/dL Estimated GFR (MDRD) (>89) Glucose (70-100) mg/dL POC Whole Bld Glucose (70 - 100) mg/dL Uric Acid (2.6-7.2) mg/dL Calcium (8.5-10.3) mg/dL Total Bilirubin (0.2-1.0) mg/dL AST (10-42) IU/L ALT (10-60) IU/L Alkaline Phosphatase (42-121) IU/L Lactate Dehydrogenase (91-225) IU/L Total Protein (6.7-8.2) g/dL Albumin (3.2-5.5) g/dL Globulin (2.1-4.2) g/dL Albumin/Globulin Ratio (1.0-2.2) Urine Color YELLOW Urine Clarity CLEAR (CLEAR) Urine pH 6.0 (5.0-7.5) PH Ur Specific [place] >=1.030 H (1.002-1.030) Urine Protein NEGATIVE (NEGATIVE) mg/dL Urine Glucose (UA) NEGATIVE (NEGATIVE) mg/dL Urine Ketones NEGATIVE (NEGATIVE) mg/dL Urine Occult Blood NEGATIVE (NEGATIVE) Urine Nitrite NEGATIVE (NEGATIVE) Urine Bilirubin NEGATIVE (NEGATIVE) Urine Urobilinogen 0.2 (NORMAL) (NORMAL) E.U./dL Ur Leukocyte Esterase TRACE H (NEGATIVE) Ur 24 Hour Volume mL Urine Creatinine 185.6 mg/dL Ur Total Protein 24 Hr Ur Total Protein Timed 19 mg/dL Protein/Creatinin Ratio 0.1 (<=0.2) Assessment/Plan - Problem List (1) Gestational hypertension Impression: Developing 2nd characteristic of severe range criteria with scotomata in setting of controlled severe range pressures Starting magnesium 4g bolus/2 g/hr IV infusion Elevated dopplers with EFW 11%ile, reassuring tracing Discussed with Dr. Titus at [facility]; transferring patient to management/likely delivery
== END 2019-07-15 17:40 | disposition short-term general hospital (02) | DRG 833 ==
LOC: WFO 16:27 → FBP 16:31 → WFO 16:47 → FBP 16:48
PROVIDERS: ADMIT Obstetrics & Gynecology; ATTEND Obstetrics & Gynecology
DX: O14.13 Severe pre-eclampsia, third trimester (principal); O24.410 Gestational diabetes mellitus in pregnancy, diet controlled; Z3A.35 35 weeks gestation of pregnancy; Z79.899 Other long term (current) drug therapy
CPT/HCPCS: 76815; 80053; 81003; 82570; 83615; 84156; 84550; 85025; A9270; J7120; 82565; 84450; 84460

== ENCOUNTER 2019-08-11 11:57 | Outpatient (CLI) | payer OTHER | END 2019-08-11 13:30 | disposition home or self-care (01) | LOC: WFO 11:57 | PROVIDERS: ATTEND Obstetrics & Gynecology | DX: O92.70 Unspecified disorders of lactation (principal) | CPT/HCPCS: 99404 ==

== ENCOUNTER 2020-02-13 10:35 | Emergency (ER) | payer OTHER ==
[2020-02-13 11:13] LABS: BILIRUBIN,URINE NEGATIVE (NEGATIVE); GLUCOSE, URINE (UA) NEGATIVE (NEGATIVE); KETONES,URINE (UA) NEGATIVE (NEGATIVE); LEUKOCYTE ESTERASE, URINE NEGATIVE (NEGATIVE); NITRITE,URINE NEGATIVE (NEGATIVE); OCCULT BLOOD,URINE LARGE (NEGATIVE); PROTEIN,URINE NEGATIVE (NEGATIVE); UROBILINOGEN,URINE 0.2 (NORMAL) E.U./dL (NORMAL)
[2020-02-13 11:15] LABS: CLARITY,URINE CLEAR (CLEAR)
[2020-02-13 11:25] LABS: BACTERIA,URINE Few /HPF (None Seen); RBC,URINE TNTC /HPF (0-5); SQUAMOUS EPITHELIAL CELL,UR MOD Squamous (<= Few)
[2020-02-13 11:30] LABS: BASOPHILS % (AUTO) 0.3 %; EOSINOPHILS # (AUTO) 0.1 10^3/uL (0.0-0.7); EOSINOPHILS % (AUTO) 1.1 %; HGB - HEMOGLOBIN 13.4 g/dL (12.0-16.0); LYMPHOCYTES # (AUTO) 2.4 10^3/uL (1.5-3.5); LYMPHOCYTES % (AUTO) 38.2 %; MEAN CORPUSCULAR HGB CONC 32.4 g/dL (32.0-36.0); MEAN CORPUSCULAR VOLUME 83.5 fL (81.0-99.0); MEAN PLATELET VOLUME 9.9 fL (7.9-10.8); MONOCYTES # (AUTO) 0.5 10^3/uL (0.0-1.0); MONOCYTES % (AUTO) 7.2 %; NEUTROPHILS # (AUTO) 3.4 10^3/uL (1.5-6.6); NEUTROPHILS % (AUTO) 52.9 %; PLT - PLATELET COUNT 346 10^3/uL (130-450); RED BLOOD COUNT 4.96 10^6/uL (4.20-5.40); RED CELL DISTRIBUTION WIDTH 14.5 % (12.0-15.0); WHITE BLOOD COUNT 6.4 x10^3/uL (4.8-10.8)
[2020-02-13 11:43] LABS: ALBUMIN 4.5 g/dL (3.2-5.5); ALBUMIN/GLOBULIN RATIO 1.3 (1.0-2.2); BILIRUBIN,TOTAL 0.4 mg/dL (0.2-1.0); CALCIUM 9.4 mg/dL (8.5-10.3); CREATININE 0.9 mg/dL (0.4-1.0); TOTAL PROTEIN 8.1 g/dL (6.7-8.2)
[2020-02-13 12:07] LABS: HCG,QUALITATIVE BLOOD NEGATIVE
--- NOTE | 2020-02-13 13:06 | ED Physician Documentation ---
History of Present Illness - Stated complaint Stated Complaint: FEMALE /BLEEDING - Chief complaint Chief Complaint: Abd Pain - History obtained from History obtained from: Patient - Additonal information Additional information: Patient comes emergency department complaining of vaginal bleeding today after having 2+ urine test yesterday. She states she was about 4 5 days late for her period so she took the tests. She states this morning, she had some cramping and started bleeding. She states it feels about like her normal periods do. The patient states her last menstrual period was January 11. No fevers or chills. No nausea or vomiting. Other than cramping, the patient is not having any abdominal pain. No passage of tissue. No other complaints at this time Review of Systems Ten Systems: 10 systems reviewed and negative Constitutional: reports: Reviewed and negative Eyes: reports: Reviewed and negative Ears: reports: Reviewed and negative Nose: reports: Reviewed and negative Throat: reports: Reviewed and negative Cardiac: reports: Reviewed and negative Respiratory: reports: Reviewed and negative GI: reports: Abdominal Pain (Crampy) : reports: Vaginal bleeding, Now EGA Skin: reports: Reviewed and negative Musculoskeletal: reports: Reviewed and negative Neurologic: reports: Reviewed and negative Psychiatric: reports: Reviewed and negative Endocrine: reports: Reviewed and negative Immunocompromised: reports: Reviewed and negative PD PAST MEDICAL HISTORY - Past Medical History Cardiovascular: None Respiratory: None Neuro: Motion sickness Endocrine/Autoimmune: None GI: Ulcers 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: None : Chronic bladder infection Psych: Depression, Anxiety Musculoskeletal: None Derm: Psoriasis - Past Surgical History Past Surgical History: No - Present Medications Home Medications: Ambulatory Orders Medication Instructions Recorded Confirmed Pnv No.95/Ferrous Fum/Folic AC 1 each PO DAILY 02/10/19 03/18/19 [ [place]] - Allergies Allergies/Adverse Reactions: Allergies Allergy/AdvReac Type Severity Reaction Status Date / Time No Known Drug Allergies Allergy Verified 02/13/20 10:44 - Social History Does the pt smoke?: No Smoking Status: Never smoker Does the pt drink ETOH?: No Does the pt have substance abuse?: No - Immunizations Immunizations are current?: Yes PD ED PE NORMAL - Vitals Vital signs reviewed: Yes - General General: Alert and oriented X 3, No acute distress - HEENT HEENT: Atraumatic, PERRL, EOMI, Moist mucous membranes - Neck Neck: Supple, no meningeal sign - Cardiac Cardiac: RRR, No murmur, Strong equal pulses - Respiratory Respiratory: No respiratory distress, Clear bilaterally - Abdomen Abdomen: Soft, Non tender, Non distended - Back Back: No CVA TTP - Derm Derm: Normal color, Warm and dry, No rash - Extremities Extremities: No deformity - Neuro Neuro: Alert and oriented X 3, Other - Psych Psych: Normal mood, Normal affect Results - Vitals Vitals: Vital Signs - 24 hr 02/13/20 02/13/20 10:40 11:37 Temperature 36.7 C 37.2 C Heart Rate 66 74 Respiratory 17 16 Rate Blood Pressure 138/90 H 134/89 H O2 Saturation 99 100 Oxygen O2 Source Room air - Labs Labs: Laboratory Tests 02/13/20 02/13/20 02/13/20 10:50 11:25 11:25 WBC 6.4 RBC 4.96 Hgb 13.4 Hct 41.4 MCV 83.5 MCH 27.0 MCHC 32.4 RDW 14.5 Plt Count 346 MPV 9.9 Neut # (Auto) 3.4 Lymph # (Auto) 2.4 [place] # (Auto) 0.5 Eos # (Auto) 0.1 Baso # (Auto) 0.0 Absolute Nucleated RBC 0.00 Nucleated RBC % 0.0 Sodium 137 Potassium 4.2 Chloride 103 Carbon Dioxide 24 Anion Gap 10.0 BUN 9 Creatinine 0.9 Estimated GFR (MDRD) 75 L Glucose 104 H Calcium 9.4 Total Bilirubin 0.4 AST 21 ALT 22 Alkaline Phosphatase 69 Total Protein 8.1 Albumin 4.5 Globulin 3.6 Albumin/Globulin Ratio 1.3 Lipase 34 Serum HCG, Qual Urine Color YELLOW Urine Clarity CLEAR Urine pH 8.0 H Ur Specific [place] 1.015 Urine Protein NEGATIVE Urine Glucose (UA) NEGATIVE Urine Ketones NEGATIVE Urine Occult Blood LARGE H Urine Nitrite NEGATIVE Urine Bilirubin NEGATIVE Urine Urobilinogen 0.2 (NORMAL) Ur Leukocyte Esterase NEGATIVE Urine RBC TNTC H Urine WBC 0-3 Ur Squamous Epith Cells MOD Squamous H Urine Bacteria Few Ur Microscopic Review INDICATED Urine Culture Comments NOT INDICATED 02/13/20 11:25 WBC RBC Hgb Hct MCV MCH MCHC RDW Plt Count MPV Neut # (Auto) Lymph # (Auto) [place] # (Auto) Eos # (Auto) Baso # (Auto) Absolute Nucleated RBC Nucleated RBC % Sodium Potassium Chloride Carbon Dioxide Anion Gap BUN Creatinine Estimated GFR (MDRD) Glucose Calcium Total Bilirubin AST ALT Alkaline Phosphatase Total Protein Albumin Globulin Albumin/Globulin Ratio Lipase Serum HCG, Qual NEGATIVE Urine Color Urine Clarity Urine pH Ur Specific [place] Urine Protein Urine Glucose (UA) Urine Ketones Urine Occult Blood Urine Nitrite Urine Bilirubin Urine Urobilinogen Ur Leukocyte Esterase Urine RBC Urine WBC Ur Squamous Epith Cells Urine Bacteria Ur Microscopic Review Urine Culture Comments PD MEDICAL DECISION MAKING - ED course Complexity details: reviewed results, re-evaluated patient, considered differential, d/w patient ED course: I discussed with the patient that her test here is negative. The patient's vaginal bleeding is like her normal menstruation, and we have discussed that patient may have had false positive test, or, she may have had a that got off the ground very slightly, but has failed to develop. There is no need for imaging at this time. We have discussed home management and symptoms, as well as usual indications for return. Departure - Departure Disposition: 01 Home, Self Care Clinical Impression: Miscarriage Condition: Stable Instructions: Miscarriage Dc Comments: Your hormone levels are negative it is not clear why he had the 2+ test yesterday, but at this point in time, you are most likely starting your.. You may have had a that got off the ground very slightly, but is now regressing. It is best, given the circumstances, if you do not use tampons for this cycle, And allow any potential accumulated tissue to pass.
[2020-02-13 13:13] VITALS: BP 117/73
== END 2020-02-13 13:15 | disposition home or self-care (01) ==
LOC: ED 10:35
DX: O03.9 Complete or unspecified spontaneous abortion without complication (principal)
CPT/HCPCS: 36415; 80053; 81001; 81003; 83690; 84703; 85025; 87086; 99284

== ENCOUNTER 2020-02-28 09:04 | Outpatient (CLI) | payer OTHER ==
--- NOTE | 2020-03-01 12:17 | MRI Report ---
PROCEDURE: Wrist RT W/O INDICATIONS: PAIN IN RT WRIST, OTHER INSTABILITY RT WRIST TECHNIQUE: Noncontrast coronal proton density fast spin echo and T2 fast spin echo with fat saturation; coronal 3-D gradient echo, axial T1 spin echo and T2 fast spin echo with fat saturation, sagittal T1 spin ech o through the wrist. COMPARISON: None. FINDINGS: Image quality: Excellent. Bones and cartilage: The carpal bones are normally aligned. No bone marrow contusions or fractures. No evidence for avascular necrosis. Overlying cartilage surfaces appear normal. Carpal ligaments: The scapholunate and lunotriquetral ligaments appear intact. In the absence of in tra-articular contrast, the extrinsic carpal ligaments are not well identified. On sagittal images, the pisohamate ligament appears intact. Triangular fibrocartilage complex: The triangular fibrocartilage appears intact. The adjacent menis sharonda homolog appears normal in the absence of intra-articular contrast. The extensor carpi ulnaris te ndon is normal in location and morphology. Tendons and soft tissues: Thickened extensor pollicis brevis tendon with attenuated appearance at th e level of distal radius/radial styloid is seen suggestive of moderate grade intrasubstance partial t hickness tear. No definite full-thickness tendon rupture. Adjacent adductor pollicis longus tendon is intact. The carpal tunnel structures appear normal, including the median nerve. The ulnar nerve lacey ears normal within Guyon?s canal. Rest of the extensor tendon compartments demonstrate normal morphol ogy, without pathologic tendon sheath fluid. No soft tissue ganglion cysts. IMPRESSION: 1. Moderate grade partial thickness tear involving extensor pollicis brevis tendon at the level of di stal radius/radial styloid. No full-thickness tendon rupture. Rest of the extensor and flexor tendons are intact. 2. No marrow edema. No fracture or dislocation. 3. Intrinsic and extrinsic wrist ligaments are intact. 4. Triangular fibrocartilage complex is intact. Reviewed by: Fracisco Weir MD on 03/01/2020 12:16 PM PDT Approved by: Fracisco Weir MD on 03/01/2020 12:16 PM PDT Station ID: [id number]
== END 2020-02-28 09:05 | disposition home or self-care (01) ==
LOC: DI 09:04
PROVIDERS: ATTEND Orthopaedic Surgery
DX: M25.331 Other instability, right wrist (principal); S66.211A Strain of extensor muscle, fascia and tendon of right thumb at wrist and hand level, initial encounter

== ENCOUNTER 2020-04-05 08:00 | Outpatient (CLI) | payer OTHER ==
[2020-04-05 17:59] LABS: MUDS CUTOFF CONCENTRATIONS CUTOFF CONC BELOW:
[2020-04-05 18:31] LABS: AMPHETAMINE SCREEN,URINE NEGATIVE (NEGATIVE); BENZODIAZEPINES SCREEN, URINE NEGATIVE (NEGATIVE); COCAINE SCREEN URINE NEGATIVE (NEGATIVE); METHADONE SCREEN, URINE NEGATIVE (NEGATIVE); METHAMPHETAMINES SCREEN, URINE NEGATIVE (NEGATIVE); OPIATE SCREEN, URINE NEGATIVE (NEGATIVE); OXYCODONE SCREEN, URINE NEGATIVE (NEGATIVE); PROPOXYPHENE SCREEN, URINE NEGATIVE (NEGATIVE); TRICYCLIC ANTIDEPRESSANT,URINE NEGATIVE (NEGATIVE)
== END 2020-04-05 23:59 | disposition home or self-care (01) ==
LOC: LAB.R 08:00
PROVIDERS: ATTEND Obstetrics & Gynecology
DX: O09.90 Supervision of high risk pregnancy, unspecified, unspecified trimester (principal)
CPT/HCPCS: 80306; 87086

== ENCOUNTER 2020-04-18 10:58 | Outpatient (CLI) | payer OTHER ==
--- NOTE | 2020-04-18 13:15 | Ultrasound Report ---
PROCEDURE: OB First Trimester INDICATIONS: sup high risk OUTSIDE/PRIOR DATING DATA: Last menstrual period (LMP): 02/13/2020. LMP-based estimated date of delivery ([place]): 11/19/2020. First dating scan (date and location): Would be [facility] 04/18/2020. Estimated date of delivery ([place]) from first dating scan: 11/21/2020. TECHNIQUE: Real-time scanning was performed of the fetus and maternal pelvic organs, with image documentation. COMPARISON: None FINDINGS: Embryo: A live intrauterine gestational sac is seen with a pole having a crown-rump length of 2 .3 cm corresponding with 9 weeks 0 days and a mean gestational sac diameter of 3.9 cm corresponding w ith 9 weeks 2 days. heart rate is 171 bpm. Measurement variability in dating: +/- 4 weeks by LMP, +/- 7 days by mean sac diameter (use before 6 weeks gestation if crown-rump length not able to be measured), +/- 5 days by crown-rump length (6-12 weeks gestation). Maternal organs: Ovaries: A likely corpus luteal cyst of the left ovary measures 1.7 x 1.3 x 1.9 cm. An exophytic simp le cyst of the left ovary measures 1.1 x 1.1 x 1.0 cm. Normal vascular flow to the left ovary. Limited images through the kidneys demonstrate no hydronephrosis. IMPRESSION: Live intrauterine with a composite gestational age of 9 weeks 0 days. Reviewed by: Kenny Lezama on 04/18/2020 1:14 PM PST Approved by: Kenny Lezama on 04/18/2020 1:14 PM PST Station ID: [id number]
== END 2020-04-18 10:59 | disposition home or self-care (01) ==
LOC: DI 10:58
PROVIDERS: ATTEND Obstetrics & Gynecology
DX: O09.90 Supervision of high risk pregnancy, unspecified, unspecified trimester (principal); Z3A.09 9 weeks gestation of pregnancy
CPT/HCPCS: 76801

== ENCOUNTER 2020-04-19 10:45 | Outpatient (CLI) | payer OTHER | END 2020-04-19 23:59 | disposition home or self-care (01) | LOC: LAB.R 10:45 | PROVIDERS: ATTEND Obstetrics & Gynecology | DX: Z11.3 Encounter for screening for infections with a predominantly sexual mode of transmission (principal) | CPT/HCPCS: 81599; 87491; 87591 ==

== ENCOUNTER 2020-05-22 21:42 | Emergency (ER) | payer OTHER ==
[2020-05-22 22:06] LABS: BILIRUBIN,URINE NEGATIVE (NEGATIVE); GLUCOSE, URINE (UA) NEGATIVE (NEGATIVE); KETONES,URINE (UA) NEGATIVE (NEGATIVE); LEUKOCYTE ESTERASE, URINE NEGATIVE (NEGATIVE); NITRITE,URINE NEGATIVE (NEGATIVE); OCCULT BLOOD,URINE NEGATIVE (NEGATIVE); PROTEIN,URINE NEGATIVE (NEGATIVE); UROBILINOGEN,URINE 0.2 (NORMAL) E.U./dL (NORMAL)
[2020-05-22 22:09] LABS: CLARITY,URINE CLEAR (CLEAR)
--- NOTE | 2020-05-22 22:14 | ED Physician Documentation ---
History of Present Illness - Stated complaint Stated Complaint: LOWER ABD PX, - Chief complaint Chief Complaint: Abd Pain - History obtained from History obtained from: Patient - Additonal information Additional information: Patient is sent to the emergency department by Dr. Canchola after experiencing low abdominal discomfort at 14 weeks . The patient is 10 months status post emergency after having a complicated course with her previous , due to preeclampsia. The patient states that starting on Andreina Carina, she began to feel episodes of tightening in her abdomen. Patient states that they felt like strong contractions and that today, she has been getting as many as 3 in a row. This is happened several times, and so she ended up calling her OB specialist, Dr. Canchola, who told her to come here and get evaluated. Patient states she is not having much pain right now. When it happens, she states it feels like it is across her low abdomen, not more on one side than the other. The patient denies any unusual discharge and has not had any vaginal bleeding. No dysuria. No fevers or back pain. No nausea or vomiting. No diarrhea or other change in bowel habits. The patient states that she has not otherwise had any problems with the . Dr. Canchola has also called to give some history and the patient and states that the patient has also had a couple of ultrasounds which have shown a viable IUP. No other complaints at this time. Review of Systems Ten Systems: 10 systems reviewed and negative Constitutional: reports: Reviewed and negative Eyes: reports: Reviewed and negative Ears: reports: Reviewed and negative Nose: reports: Reviewed and negative Throat: reports: Reviewed and negative Cardiac: reports: Reviewed and negative Respiratory: reports: Reviewed and negative GI: reports: Abdominal Pain. denies: Nausea, Vomiting, Diarrhea : reports: Now EGA. denies: Dysuria, Vaginal bleeding Skin: reports: Reviewed and negative Musculoskeletal: reports: Reviewed and negative Neurologic: reports: Reviewed and negative Psychiatric: reports: Reviewed and negative Endocrine: reports: Reviewed and negative Immunocompromised: reports: Reviewed and negative PD PAST MEDICAL HISTORY - Past Medical History Past Medical History: Yes Cardiovascular: None Respiratory: None Neuro: Motion sickness Endocrine/Autoimmune: None GI: Ulcers [employer] [employer]: None : Chronic bladder infection Psych: Depression, Anxiety Musculoskeletal: None Derm: Psoriasis Other Past Medical History: History of HIGH BLOOD PRESSURE DURING - Past Surgical History Past Surgical History: No - Present Medications Home Medications: Ambulatory Orders Medication Instructions Recorded Confirmed Pnv No.95/Ferrous Fum/Folic AC 1 each PO DAILY 02/10/19 05/22/20 [ [place]] - Allergies Allergies/Adverse Reactions: Allergies Allergy/AdvReac Type Severity Reaction Status Date / Time No Known Drug Allergies Allergy Verified 05/22/20 21:56 - Social History Does the pt smoke?: No Smoking Status: Never smoker Does the pt drink ETOH?: No Does the pt have substance abuse?: No - Immunizations Immunizations are current?: Yes PD ED PE NORMAL - Vitals Vital signs reviewed: Yes - General General: Alert and oriented X 3, No acute distress, Well developed/nourished - HEENT HEENT: Atraumatic, PERRL, EOMI, Moist mucous membranes - Neck Neck: Supple, no meningeal sign - Cardiac Cardiac: RRR, No murmur - Respiratory Respiratory: No respiratory distress, Clear bilaterally - Abdomen Abdomen: Soft, Non distended, Other (Mild diffuse tenderness throughout abdomen. No focus of increased tenderness.) - Female Female : Deferred - Back Back: No CVA TTP - Derm Derm: Normal color, Warm and dry, No rash - Extremities Extremities: No deformity, No edema, No calf tenderness / cord - Neuro Neuro: Alert and oriented X 3 - Psych Psych: Normal mood, Normal affect Results - Vitals Vitals: Oxygen O2 Source Room air - Labs Labs: Laboratory Tests 05/22/20 05/22/20 21:52 22:15 WBC 10.1 RBC 4.31 Hgb 12.0 Hct 36.0 L MCV 83.5 MCH 27.8 MCHC 33.3 RDW 13.9 Plt Count 298 MPV 10.0 Neut # (Auto) 6.6 Lymph # (Auto) 2.8 [place] # (Auto) 0.6 Eos # (Auto) 0.1 Baso # (Auto) 0.0 Absolute Nucleated RBC 0.00 Nucleated RBC % 0.0 Urine Color YELLOW Urine Clarity CLEAR Urine pH 6.0 Ur Specific [place] <=1.005 Urine Protein NEGATIVE Urine Glucose (UA) NEGATIVE Urine Ketones NEGATIVE Urine Occult Blood NEGATIVE Urine Nitrite NEGATIVE Urine Bilirubin NEGATIVE Urine Urobilinogen 0.2 (NORMAL) Ur Leukocyte Esterase NEGATIVE Ur Microscopic Review NOT INDICATED Urine Culture Comments NOT INDICATED - Rads (name of study) US ob Radiology: Prelim report reviewed, EMP read indepedently, See rad report (14-wk iup; No other issues) PD MEDICAL DECISION MAKING - ED course Complexity details: reviewed old records, reviewed results, re-evaluated patient, considered differential, d/w patient ED course: As per my conversation with Dr. Canchola, and OB ultrasound was ordered with specific attention to the scar to look for dehiscence and also to the cervix to look for cervical length. I did also order a CBC and a urinalysis to evaluate for risk of other potential causes of abdominal/pelvic pain. US showed a viable 14-week IUP, with no evidence of abnormality of the cervix or along the incision site. The patient's urinalysis is negative and CBC was unremarkable. I discussed with the patient that at this point in time, there is no evidence of an emergent condition causing patient's symptoms. She should plan to follow-up with Dr. Canchola as scheduled, though she may going this week to be rechecked if she has any specific concerns. We have discussed home management of the symptoms, as well as the usual indications for return. Departure - Departure Disposition: 01 Home, Self Care Clinical Impression: Abdominal pain Qualifiers: Abdominal location: generalized Qualified Code(s): R10.84 - Generalized abdominal pain Condition: Stable Instructions: ED Abdominal Pain Unkn Cause, ED Care Comments: Your ultrasound looks good. There is no evidence of any problem with your preg paige. Additionally, your blood work shows no elevation in white blood cell count and your urinalysis is negative. At this point in time, there is no evidence of an emergent cause of the tightening sensations that you are feeling in your abdomen. If you continue to have these sorts of feelings, you will need to follow-up with Dr. Canchola later this week for an examination by her. If you begin having vaginal bleeding, or you develop a severe tearing pain, you will need to return to the emergency department. Discharge Date/Time: 05/23/20 00:16
[2020-05-22 22:25] LABS: BASOPHILS % (AUTO) 0.2 %; EOSINOPHILS # (AUTO) 0.1 10^3/uL (0.0-0.7); EOSINOPHILS % (AUTO) 0.6 %; LYMPHOCYTES # (AUTO) 2.8 10^3/uL (1.5-3.5); LYMPHOCYTES % (AUTO) 27.8 %; MEAN CORPUSCULAR HEMOGLOBIN 27.8 pg (27.0-31.0); MEAN CORPUSCULAR HGB CONC 33.3 g/dL (32.0-36.0); MEAN CORPUSCULAR VOLUME 83.5 fL (81.0-99.0); MONOCYTES # (AUTO) 0.6 10^3/uL (0.0-1.0); MONOCYTES % (AUTO) 6.2 %; NEUTROPHILS # (AUTO) 6.6 10^3/uL (1.5-6.6); NEUTROPHILS % (AUTO) 64.9 %; PLT - PLATELET COUNT 298 10^3/uL (130-450); RED BLOOD COUNT 4.31 10^6/uL (4.20-5.40); RED CELL DISTRIBUTION WIDTH 13.9 % (12.0-15.0); WHITE BLOOD COUNT 10.1 x10^3/uL (4.8-10.8)
[2020-05-23 00:12] VITALS: BP 124/77
--- NOTE | 2020-05-23 09:07 | Ultrasound Report ---
PROCEDURE: OB First Trimester INDICATIONS: severe pelvic pain, 14 wks OUTSIDE/PRIOR DATING DATA: Last menstrual period (LMP): 02/13/2020. LMP-based estimated date of delivery ([place]): 11/19/2020. First dating scan (date and location): 04/18/2020, [facility]. Estimated date of delivery ([place]) from first dating scan: 11/21/2020. TECHNIQUE: Real-time scanning was performed of the fetus and maternal pelvic organs, with image documentation. COMPARISON: OB ultrasound dated 04/18/2020 FINDINGS: Embryo: Single live uterine gestation is present with a crown-rump length of 7.5 cm for a gestationa l age of 13 weeks, 4 days. By biometric measurements, the composite gestational age is 14 weeks 1 day . These findings are concordant with the dates by initial ultrasound of 13 weeks, 6 days. Measurement variability in dating: +/- 4 weeks by LMP, +/- 7 days by mean sac diameter (use before 6 weeks gestation if crown-rump length not able to be measured), +/- 5 days by crown-rump length (6-12 weeks gestation). Maternal organs: Ovaries have a normal sonographic appearance. The kidneys were not imaged on the [facility]. IMPRESSION: 1. Single live intrauterine gestation with a composite gestational age of 14 weeks, 1 day by biometry and 13 weeks, 4 days by crown-rump length. Dates are concordant with the initial ultrasound. Findings are concordant with the overnight interpretation. Reviewed by: Shanelle Bales MD on 05/23/2020 8:05 AM ESTHER Approved by: Shanelle Bales MD on 05/23/2020 8:05 AM ESTHER Station ID: [id number]
== END 2020-05-23 00:16 | disposition home or self-care (01) ==
LOC: ED 21:42
DX: O99.891 Other specified diseases and conditions complicating pregnancy (principal); R10.84 Generalized abdominal pain; O34.211 Maternal care for low transverse scar from previous cesarean delivery; O09.891 Supervision of other high risk pregnancies, first trimester; Z3A.14 14 weeks gestation of pregnancy
CPT/HCPCS: 36415; 81001; 81003; 85025; 87086; 99284

== ENCOUNTER 2020-06-29 08:00 | Outpatient (CLI) | payer OTHER ==
[2020-06-29 19:13] LABS: BASOPHILS % (AUTO) 0.1 %; EOSINOPHILS % (AUTO) 0.3 %; HGB - HEMOGLOBIN 11.8 g/dL (12.0-16.0); LYMPHOCYTES # (AUTO) 2.1 10^3/uL (1.5-3.5); LYMPHOCYTES % (AUTO) 18.5 %; MEAN CORPUSCULAR HEMOGLOBIN 27.3 pg (27.0-31.0); MEAN CORPUSCULAR HGB CONC 31.4 g/dL (32.0-36.0); MEAN PLATELET VOLUME 10.8 fL (7.9-10.8); MONOCYTES # (AUTO) 0.4 10^3/uL (0.0-1.0); MONOCYTES % (AUTO) 3.5 %; NEUTROPHILS # (AUTO) 8.6 10^3/uL (1.5-6.6); NEUTROPHILS % (AUTO) 77.1 %; PLT - PLATELET COUNT 299 10^3/uL (130-450); RED BLOOD COUNT 4.32 10^6/uL (4.20-5.40); WHITE BLOOD COUNT 11.1 x10^3/uL (4.8-10.8)
[2020-06-29 20:49] LABS: HEMOGLOBIN A1c% 5.3 % (4.27-6.07)
[2020-06-30 12:23] LABS: HEPATITIS C ANTIBODY NON-REACTIVE (NON-REACTIVE)
[2020-06-30 13:51] LABS: HEPATITIS B SURFACE ANTIGEN NON-REACTIVE (NON-REACTIVE)
[2020-06-30 14:42] LABS: HIV AG/AB 4TH GEN NON-REACTIVE (NON-REACTIVE)
== END 2020-06-29 08:01 | disposition home or self-care (01) ==
LOC: LAB.WCP 08:00
PROVIDERS: ATTEND Obstetrics & Gynecology
DX: O09.90 Supervision of high risk pregnancy, unspecified, unspecified trimester (principal); O24.410 Gestational diabetes mellitus in pregnancy, diet controlled; Z36.89 Encounter for other specified antenatal screening
CPT/HCPCS: 36415; 81511; 81599; 82950; 83036; 85025; 86592; 86762; 86787; 86803; 86850; 86900; 86901; 87340; 87389

== ENCOUNTER 2020-07-05 19:01 | Outpatient (CLI) | payer OTHER ==
--- NOTE | 2020-07-06 15:16 | Ultrasound Report ---
PROCEDURE: OB Detailed Eval INDICATIONS: SUPERVISION OF HIGH RISK OUTSIDE/PRIOR DATING DATA: Last menstrual period (LMP): 02/13/2020. LMP-based estimated date of delivery ([place]): 11/19/2020. First dating scan (date and location): 04/18/2020. Estimated date of delivery ([place]) from first dating scan: 11/19/2020 (provider stated [place]). TECHNIQUE: Real-time scanning was performed of the fetus, with image documentation and biometric measurements. Endovaginal scanning: Not performed COMPARISON: 05/22/2021 FINDINGS: General: A single living intrauterine gestation is present. Presentation: Variable Placenta: Placental position is anterior, without previa. Amniotic fluid index: 19.0 cm, 86.8th percentile for gestational age. Largest vertical pocket kayode ured 5.8 cm. heart rate: 152 beats per minute. Maternal cervical canal: 3.86 cm long; normal length is 2.5 cm or more. biometrics: Biparietal diameter: 4.9 cm, correlating with 20 weeks and 6 days Head circumference: 18.17 cm, correlating with 20 weeks and 4 days Abdominal circumference: 14.85 cm, correlating with 20 weeks and 01 day Femur length: 3.53 cm, correlating with 21 weeks and 1 day Estimated gestational age from initial scan: not applicable. Composite gestational age from present scan: 20 weeks and 5 days Estimated weight and percentile: 365 g Measurement variability in biometric dating: +/- 10 days from 12-20 weeks gestation, +/- 2 weeks from 20-30 weeks gestation, +/- 3 weeks at 30 weeks gestation or later. Anatomic survey: Neuro: Ventricles are normal at less than 10 mm. Cisterna magna is normal at 3-11 mm. Cerebellum i s normal in size and morphology. Nuchal skin fold: Normal at less than 6 mm between 14 and 20 weeks gestational age. Face: Nose and lips, facial profile are normal. Spine: No evidence for spina bifida. Heart: 4-chambered heart is present, with normal left ventricular outflow tracts. Right ventricular outflow tract is not optimally visualized. Diaphragm: Diaphragm is intact. Stomach: Left-sided stomach is present. Kidneys: No hydronephrosis. Normal is less than 5 mm in 2nd trimester, less than 7 mm in 3rd trimester. Cord: 3 vessel cord has orthotopic insertion. Bladder: Normal in size. Extremities: All 4 extremities are visualized. IMPRESSION: 1. Single living intrauterine gestation with an estimated sonographic gestational age of approximatel y 20 weeks and 5 days which correlates with estimated date of delivery of 11/17/2020. This remains con cordant with provider stated [place] of 11/19/2020. 2. Limited evaluation of the right ventricular outflow tract. Otherwise, unremarkable evaluation of t he anatomic structures. Consider follow-up imaging to reevaluate right ventricular outflow trac t. Reviewed by: Guido Hebert MD on 07/06/2020 3:15 PM PST Approved by: Guido Hebert MD on 07/06/2020 3:15 PM PST Station ID: [id number]
== END 2020-07-05 19:02 | disposition home or self-care (01) ==
LOC: DI 19:01
PROVIDERS: ATTEND Obstetrics & Gynecology
DX: O09.90 Supervision of high risk pregnancy, unspecified, unspecified trimester (principal); Z3A.20 20 weeks gestation of pregnancy

== ENCOUNTER 2020-08-07 21:09 | Outpatient (CLI) | payer OTHER ==
[2020-08-07 21:39] LABS: BASOPHILS % (AUTO) 0.1 %; EOSINOPHILS # (AUTO) 0.1 10^3/uL (0.0-0.7); EOSINOPHILS % (AUTO) 0.6 %; HCT - HEMATOCRIT 32.8 % (37.0-47.0); HGB - HEMOGLOBIN 10.9 g/dL (12.0-16.0); LYMPHOCYTES # (AUTO) 2.8 10^3/uL (1.5-3.5); LYMPHOCYTES % (AUTO) 27.8 %; MEAN CORPUSCULAR HEMOGLOBIN 28.2 pg (27.0-31.0); MEAN CORPUSCULAR HGB CONC 33.2 g/dL (32.0-36.0); MEAN PLATELET VOLUME 9.8 fL (7.9-10.8); MONOCYTES # (AUTO) 0.6 10^3/uL (0.0-1.0); MONOCYTES % (AUTO) 5.5 %; NEUTROPHILS # (AUTO) 6.6 10^3/uL (1.5-6.6); NEUTROPHILS % (AUTO) 65.6 %; PLT - PLATELET COUNT 259 10^3/uL (130-450); RED BLOOD COUNT 3.86 10^6/uL (4.20-5.40); RED CELL DISTRIBUTION WIDTH 13.2 % (12.0-15.0); WHITE BLOOD COUNT 10.1 x10^3/uL (4.8-10.8)
[2020-08-07 21:50] LABS: CREATININE,URINE 137.9 mg/dL; PROTEIN/CREATININE RATIO,URINE 0.1 (<=0.2)
[2020-08-07 21:51] LABS: ALBUMIN 3.1 g/dL (3.2-5.5); ALBUMIN/GLOBULIN RATIO 0.9 (1.0-2.2); ALKALINE PHOSPHATASE 55 IU/L (42-121); ALT ALANINE AMINOTRANSFERASE < 10 IU/L (10-60); AST ASPARTATE AMINOTRANSFERASE 11 IU/L (10-42); BILIRUBIN,TOTAL < 0.2 mg/dL (0.2-1.0); BUN - BLOOD UREA NITROGEN 11 mg/dL (6-20); CALCIUM 8.8 mg/dL (8.5-10.3); CARBON DIOXIDE - CO2 22 mmol/L (21-32); CHLORIDE 101 mmol/L (101-111); CREATININE 0.8 mg/dL (0.4-1.0); GFR - MDRD 85 (>89); GLUCOSE 116 mg/dL (70-100); POTASSIUM 3.1 mmol/L (3.5-5.0); SODIUM 139 mmol/L (135-145); TOTAL PROTEIN 6.6 g/dL (6.7-8.2)
[2020-08-07 22:04] VITALS: BP 116/68
--- NOTE | 2020-08-10 15:43 | PROCEDURE REPORT ---
- HPI Current EDU 11/19/20 Gestation 25 Weeks and 1 Days 2 Para 1 Vital Signs Temperature 99.0 F 08/07/20 21:33 Heart Rate 80 08/07/20 21:33 Respiratory Rate 18 08/07/20 21:33 Blood Pressure 116/65 08/07/20 21:33 O2 Saturation 100 08/07/20 21:33 Temperature 99.0 F 08/07/20 21:33 Heart Rate 87 08/07/20 22:00 Respiratory Rate 16 08/07/20 21:45 Blood Pressure 116/68 08/07/20 22:00 O2 Saturation 100 08/07/20 21:45 - NST Procedure NST Procedure Start Time 12:30 Stop Time 13:30 - Results and Plan Findings/Impression: No NST done. Doppler FHT 150.
== END 2020-08-07 22:13 | disposition home or self-care (01) ==
LOC: WFO 21:09 → FBP 21:09 → WFO 22:13
PROVIDERS: ATTEND Obstetrics & Gynecology
DX: Z34.82 Encounter for supervision of other normal pregnancy, second trimester (principal); Z3A.25 25 weeks gestation of pregnancy
CPT/HCPCS: 36415; 80053; 82570; 84156; 85025; 99212

== ENCOUNTER 2020-08-19 14:20 | Outpatient (CLI) | payer OTHER ==
[2020-08-19 16:15] LABS: BASOPHILS % (AUTO) 0.1 %; EOSINOPHILS # (AUTO) 0.1 10^3/uL (0.0-0.7); EOSINOPHILS % (AUTO) 0.5 %; HCT - HEMATOCRIT 34.7 % (37.0-47.0); HGB - HEMOGLOBIN 11.1 g/dL (12.0-16.0); LYMPHOCYTES # (AUTO) 2.2 10^3/uL (1.5-3.5); LYMPHOCYTES % (AUTO) 19.9 %; MEAN CORPUSCULAR HEMOGLOBIN 27.4 pg (27.0-31.0); MEAN CORPUSCULAR VOLUME 85.7 fL (81.0-99.0); MEAN PLATELET VOLUME 10.2 fL (7.9-10.8); MONOCYTES # (AUTO) 0.7 10^3/uL (0.0-1.0); MONOCYTES % (AUTO) 6.6 %; NEUTROPHILS % (AUTO) 72.4 %; PLT - PLATELET COUNT 263 10^3/uL (130-450); RED BLOOD COUNT 4.05 10^6/uL (4.20-5.40); RED CELL DISTRIBUTION WIDTH 13.6 % (12.0-15.0); WHITE BLOOD COUNT 11.1 x10^3/uL (4.8-10.8)
[2020-08-19 16:23] LABS: URIC ACID 3.3 mg/dL (2.6-7.2)
[2020-08-19 16:45] LABS: CREATININE,URINE 34.1 mg/dL
[2020-08-19 16:46] LABS: TOTAL PROTEIN,URINE TIMED < 6 mg/dL
--- NOTE | 2020-08-19 17:06 | PROVIDER PROGRESS NOTE ---
- HPI Chief Complaint: Hypertension/PIH Current : Patient is a 30 yo at 26+6 wga here for pre-eclampsia evaluation. Patient called from home reporting that she is seeing "speckle lights" and that her blood pressures are elevated. She has a short interpregnancy interval with dleivery at 35 weeks for pre-e clampsia with severe features. She is having normal blood pressures in triage. PIH were ordered. No headache, vision change, RUQ pain at present. Endorses movement, denies LOF/VB/CTX. Expresses a lot of anxiety athome. Hx this : DATING: LMP 02/03/2020 gives [place] 11/19/2020 US on 04/18/2020 at 9w0d gives [place] 11/21/2020, cwd. Hx of pre-E with severe features -BP normal today -on ASA -Normal range labs although HCT 32.8 -Sending iron supplementation -IUGR in prior delivery Sending growth us for 2 weeks Hx of GDM/BMI 35 -HbA1c with PNL -early glucola elevated -Profiling shows FBGs all out of range -On metformin 500 mg po with dinner. Not tolerating and wants to hold for one week -No change in FBG OFF metformin. Starting NPH 2 units QHS Will give glyburide 2/5 mg for a week until patient can access diabetes teaching Orders submitted to [facility] -Growth us ordered for 28 weeks -Needs twice weekly NST and weekly RY at 32 weeks with Q4 week us -IOL at 39 weeks PTSD: -Sertraline 50 mg po daily--interfering with sleep. Will take in am -Referral for therapist given prior visit O pos/Rub imm Declines genetic testing FAS: CL 3.86, anterior, 3VC, EFW appropriate for age (%ile not given) FAS wnl other than suboptimal views of RVOT Influenza: 04/05/2020 TDaP: at 28 weeks Glucola at 143 at 18 weeks; profiling with elevated FBG. See above for GDM HSV: denies GBS: at 36 weeks MOD: CS at 39 weeks Pap: last pap 2018, repeat due in 2021 Past Medical History: Reviewed and updated today: Anxiety Depression pyelonephritis pre-eclanpsia with severe feaures Gestational diabetes BMI 34.97 Past Surgical History: [place] (2010) (06/2019) ROS: As per HPI, otherwise remaining systems are negative. PE: See VS. BPs wnl GEN: NAD HEENT: NCAT CV: RRR RESP: CTAB, normal effort ABD: gravid, S&NT/ND EXT: WWP, no LE edema PSYCH: appropriate affect, intermittently tearful NEURO: A&O, nl gait and coordination. EFM 140 mod janet 10x10 accels no decels TOCO: quiet PIH labs wnl MTP neg A/P: Patient is a 30 yo at 26+6 wga here for pre-eclampsia evaluation. PIH: Normal blood pressures, no symptoms, neg labs -Reviewed patient has PTSD and a great deal of anxiety regarding fear of pre-E with severe features with repeat episode of transfer with emergent delivery and having to take care of herself anf the baby without assistance. -Open to starting low dose labetalol to control panic attacks and level out blood pressures at home. BP high normal in triage. Reviewed that this is not typical management but could mitigate her intermittent tachycardia, labile BPs in setting of panic attacks and control attakcs Reviewed use of meditation, other forms of self care to mitigate symptoms Reviewed possibility of hydroxyzien but patient takes doxylamine succinate at baseline and needs it to sleep Reviewed labs with patient FWB: AGA tracing Warning signs reviewed Rx for labetal and insulin syringes were sent to through [facility] Patient was seen in triage face to face by this provider - Procedures NST Procedure: NST Procedure Start Time 12:30 Stop Time 13:30 Service Date of procedure: 08/19/20 Procedure Details: AGA/CAt I tracing Warning signs reviewed FU in clinic
[2020-08-19 17:59] VITALS: BP 136/69
== END 2020-08-19 17:08 | disposition home or self-care (01) ==
LOC: WFO 14:20 → FBP 14:21 → WFO 17:08
PROVIDERS: ATTEND Obstetrics & Gynecology
DX: O13.2 Gestational [pregnancy-induced] hypertension without significant proteinuria, second trimester (principal); O24.415 Gestational diabetes mellitus in pregnancy, controlled by oral hypoglycemic drugs; Z3A.36 36 weeks gestation of pregnancy; O09.892 Supervision of other high risk pregnancies, second trimester; O99.342 Other mental disorders complicating pregnancy, second trimester; F41.9 Anxiety disorder, unspecified; F32.9 Major depressive disorder, single episode, unspecified; Z79.82 Long term (current) use of aspirin; Z79.84 Long term (current) use of oral hypoglycemic drugs; Z87.440 Personal history of urinary (tract) infections
CPT/HCPCS: 36415; 82570; 83615; 84156; 84450; 84550; 85025; 99214

== ENCOUNTER 2020-08-30 09:57 | Outpatient (CLI) | payer OTHER | END 2020-08-30 09:58 | disposition home or self-care (01) | LOC: NS 09:57 | PROVIDERS: ATTEND Obstetrics & Gynecology | DX: O24.410 Gestational diabetes mellitus in pregnancy, diet controlled (principal) ==

== ENCOUNTER 2020-09-01 07:00 | Outpatient (CLI) | payer OTHER ==
--- NOTE | 2020-09-02 13:51 | Ultrasound Report ---
PROCEDURE: OB F/U or Repeat INDICATIONS: GESTATIONAL HTN, GESTATIONAL DIABETES OUTSIDE/PRIOR DATING DATA: Last menstrual period (LMP): 02/13/2020. LMP-based estimated date of delivery ([place]): 11/19/2020. First dating scan (date and location): 04/18/2020. Estimated date of delivery ([place]) from first dating scan: 11/19/2020. TECHNIQUE: Real-time scanning was performed of the fetus, with image documentation and biometric measurements. Endovaginal scanning: Not indicated COMPARISON: 04/18/2020. FINDINGS: General: A single living intrauterine gestation is present. Presentation: Cephalic Placenta: Placental position is anterior, without previa. Amniotic fluid index: 13.6 cm, normal for gestational age. Largest pocket measures 4.2 cm. heart rate: 139 beats per minute. Maternal cervical canal: Closed and appears grossly normal in length. biometrics: Biparietal diameter: 7.23 cm, 29 weeks, 0 day. Head circumference: 26.66 cm, 29 weeks, 0 day Abdominal circumference: 24.15 cm, 28 weeks, 3 days Femur length: 5.16 cm, 29 weeks, 4 days. Estimated gestational age from initial scan: 28 weeks, 5 days Composite gestational age from present scan: 29 weeks, 0 day Estimated weight and percentile: 1300 g, 43.1 percentile Measurement variability in biometric dating: +/- 10 days from 12-20 weeks gestation, +/- 2 weeks from 20-30 weeks gestation, +/- 3 weeks at 30 weeks gestation or more. Other: Right ventricular outflow track, chest, stomach, bilateral kidneys, urinary bladder are within normal limits. IMPRESSION: 1. Single live intrauterine with fetus in cephalic presentation. heart rate is 139 bp m. Normal amount of amniotic fluid. RY equals 13.6 cm with largest pocket measures 4.2 cm. 2. Estimated weight is at 43.1 percentile. 3. Right ventricular outflow tract is visualized and is within normal limits. Reviewed by: Fracisco Weir MD on 09/02/2020 1:49 PM PDT Approved by: Fracisco Weir MD on 09/02/2020 1:49 PM PDT Station ID: [id number]
== END 2020-09-01 23:59 | disposition home or self-care (01) ==
LOC: DI 07:00
PROVIDERS: ATTEND Obstetrics & Gynecology
DX: O24.410 Gestational diabetes mellitus in pregnancy, diet controlled (principal); O13.3 Gestational [pregnancy-induced] hypertension without significant proteinuria, third trimester; O14.13 Severe pre-eclampsia, third trimester; Z3A.29 29 weeks gestation of pregnancy

== ENCOUNTER 2020-09-01 14:58 | Outpatient (CLI) | payer OTHER ==
[2020-09-01 16:03] LABS: BASOPHILS # (AUTO) 0.1 10^3/uL (0.0-0.1); BASOPHILS % (AUTO) 0.3 %; EOSINOPHILS % (AUTO) 0.1 %; HCT - HEMATOCRIT 39.4 % (37.0-47.0); HGB - HEMOGLOBIN 12.7 g/dL (12.0-16.0); LYMPHOCYTES # (AUTO) 1.1 10^3/uL (1.5-3.5); LYMPHOCYTES % (AUTO) 5.8 %; MEAN CORPUSCULAR HEMOGLOBIN 27.1 pg (27.0-31.0); MEAN CORPUSCULAR HGB CONC 32.2 g/dL (32.0-36.0); MEAN PLATELET VOLUME 10.2 fL (7.9-10.8); MONOCYTES # (AUTO) 1.1 10^3/uL (0.0-1.0); MONOCYTES % (AUTO) 6.1 %; NEUTROPHILS # (AUTO) 16.2 10^3/uL (1.5-6.6); NEUTROPHILS % (AUTO) 87.2 %; PLT - PLATELET COUNT 281 10^3/uL (130-450); RED BLOOD COUNT 4.69 10^6/uL (4.20-5.40); RED CELL DISTRIBUTION WIDTH 13.3 % (12.0-15.0); WHITE BLOOD COUNT 18.5 x10^3/uL (4.8-10.8)
[2020-09-01 16:16] LABS: ALBUMIN 3.8 g/dL (3.2-5.5); ALKALINE PHOSPHATASE 64 IU/L (42-121); ALT ALANINE AMINOTRANSFERASE < 10 IU/L (10-60); AST ASPARTATE AMINOTRANSFERASE 16 IU/L (10-42); BILIRUBIN,TOTAL 0.4 mg/dL (0.2-1.0); BUN - BLOOD UREA NITROGEN 12 mg/dL (6-20); CARBON DIOXIDE - CO2 20 mmol/L (21-32); CHLORIDE 104 mmol/L (101-111); CREATININE 0.6 mg/dL (0.4-1.0); GFR - MDRD 118 (>89); GLUCOSE 105 mg/dL (70-100); POTASSIUM 3.5 mmol/L (3.5-5.0); SODIUM 137 mmol/L (135-145); TOTAL PROTEIN 7.5 g/dL (6.7-8.2)
--- NOTE | 2020-09-01 16:17 | PROVIDER PROGRESS NOTE ---
- HPI Current : Vital Signs Temperature 97.9 F 09/01/20 15:10 Heart Rate 104 H 09/01/20 15:10 Respiratory Rate 16 09/01/20 15:10 Blood Pressure 145/79 H 09/01/20 15:10 O2 Saturation 100 09/01/20 15:10 Temperature 97.9 F 09/01/20 15:10 Heart Rate 104 H 09/01/20 15:10 Respiratory Rate 16 09/01/20 15:10 Blood Pressure 145/84 H 09/01/20 15:18 O2 Saturation 100 09/01/20 15:10 - Procedures OB Procedure Performed: NST NST Procedure: NST Procedure Start Time 14:26 Stop Time 15:16 Findings: CC: not feeling right HPI: felt totally normal this am. At noon ate lunch that included pasta and easter candy. At 13:00 she felt abruptly "off", got nauseated, had emesis x2. She has not been vomiting this . Saw scintillation when she was vomiting. Abdominal pain started around then, bilateral upper abdomen, right same as left, doesn't feel like heartburn. [place] weak and like she would faint but she didn't. Legs felt weak but she didn't fall and was able to ambulate to the car on her own. Took her blood sugar at home and it was in the 70s after eating that pasta so she drank some juice. Took her BP at home and it was elevated and so she took labetalol 100mg. [place] this way before during this , about a day after getting her COVID vax, thought it was due to that. Otherwise hasn't felt this way before. ROS: no fevers, cough, OSUNA, vaginal bleeding, leaking of fluid, or contractions. No sore throat, ear ache, chest pain, dysuria, hematuria, or abnormal vaginal discharge. No ill contacts. OB HX: Hx of pre-E with severe features -on ASA -Normal range labs although HCT 32.8 -IUGR in prior delivery Hx of GDM/BMI 35 -HbA1c with PNL -early glucola elevated -Profiling shows FBGs all out of range -On metformin 500 mg po with dinner. Not tolerating and wants to hold for one week -No change in FBG OFF metformin. Starting NPH 2 units QHS -Growth us ordered for 28 weeks -Needs twice weekly NST and weekly RY at 32 weeks with Q4 week us -IOL at 39 weeks PTSD: -Sertraline 50 mg po daily--interfering with sleep. Will take in am -Referral for therapist given prior visit O pos/Rub imm Declines genetic testing FAS: CL 3.86, anterior, 3VC, EFW appropriate for age (%ile not given) FAS wnl other than suboptimal views of RVOT Influenza: 04/05/2020 TDaP: at 28 weeks Glucola at 143 at 18 weeks; profiling with elevated FBG. See above for GDM HSV: denies GBS: at 36 weeks MOD: CS at 39 weeks Pap: last pap 2018, repeat due in 2021 O: BP on admit 145/9, max 151/81, best 131/77 WILLIE 2-12 intact Normal strength bilateral upper and lower extremities Normal sensation bilat upper and lower extremities DTR 2+ bilateral patellar No LE edema PIH labs normal except for WBC 18. P:C 0.2 NST Baseline: BPM 145 Variability: Moderate Accelerations: absent c/w gestational age Decelerations: Absent Trends in FHR over time: no changes [place] contractions in 10 minutes: 0 Impression: reactive Category 1 NST 30yo at 28w5d with likely viral gastroenteritis. Abrupt onset of nausea, vomiting, and diarrhea. Her abdominal pain is associated with waves of nausea. Likely had a near-vagal episode causing her to feel "out of it". Currently she feels normal except for her diarrhea. Advised to return PRN any "feeling out of it" again. Had some low postprandial sugars after a pasta lunch. Started on insulin 2d ago, 2U of NPH, fasting sugar was 105 and she had normal postprandials yesterday. Last hs took 3U NPH, fasting 95, postprandials low. Will start back at 2U NPH tonight. Go to 3U tomorrow night if the 2 goes well. WBC 18 likely due to gastroenteritis. ROS doesn't suggest other sources of infection. COVID neg here. Gestational hypertension as per prior dx but not on chart. BP here c/w BP at home. No severe-range BPs. Normal P:C, AST, ALT, and plts. Abd pain is not constant so doubt that her abd pain is due to preeclampsia. 63min MD time.
[2020-09-01 16:34] LABS: CREATININE,URINE 176.8 mg/dL; PROTEIN/CREATININE RATIO,URINE 0.2 (<=0.2)
[2020-09-01] MEDS ORDERED: ONDANSETRON 4 MG/2 ML VIAL IVP PRN (17:21)
[2020-09-01 17:25] LABS: BILIRUBIN,URINE NEGATIVE (NEGATIVE); CLARITY,URINE SL. CLOUDY (CLEAR); GLUCOSE, URINE (UA) NEGATIVE (NEGATIVE); KETONES,URINE (UA) 40 mg/dL (NEGATIVE); LEUKOCYTE ESTERASE, URINE NEGATIVE (NEGATIVE); NITRITE,URINE NEGATIVE (NEGATIVE); OCCULT BLOOD,URINE NEGATIVE (NEGATIVE); PROTEIN,URINE NEGATIVE (NEGATIVE); RBC,URINE 0-5 /HPF (0-5); SQUAMOUS EPITHELIAL CELL,UR MOD Squamous (<= Few); UROBILINOGEN,URINE 0.2 (NORMAL) E.U./dL (NORMAL)
[2020-09-01 17:26] LABS: BACTERIA,URINE Rare /HPF (None Seen)
[2020-09-01 18:00] LABS: B. PARAPERTUSSIS- RESP PCR PAN NOT DETECTED; B. PERTUSSIS- RESP PCR PANEL NOT DETECTED; C. PNEUMONIAE- RESP PCR PANEL NOT DETECTED; CORONAVIRUS 229E-RESP PCR NOT DETECTED; CORONAVIRUS HKU1-RESP PCR NOT DETECTED; CORONAVIRUS NL63-RESP PCR NOT DETECTED; CORONAVIRUS OC43-RESP PCR NOT DETECTED; HUMAN METAPNEUMOVIRUS NOT DETECTED; INFLUENZA A- RESP PCR PANEL NOT DETECTED; INFLUENZA B - RESP PCR PANEL NOT DETECTED; M. PNEUMONIAE- RESP PCR PANEL NOT DETECTED; PARAINFLUENZA VIRUS 1 NOT DETECTED; PARAINFLUENZA VIRUS 2 NOT DETECTED; PARAINFLUENZA VIRUS 3 NOT DETECTED; PARAINFLUENZA VIRUS 4 NOT DETECTED; RHINOVIRUS/ENTEROVIRUS NOT DETECTED; RSV- RESP PCR PANEL NOT DETECTED; SARS-CoV-2 -RESP PCR PANEL NOT DETECTED
[2020-09-01 18:49] VITALS: BP 131/77
== END 2020-09-01 18:45 | disposition home or self-care (01) ==
LOC: WFO 14:58 → FBP 14:59 → WFO 18:45
PROVIDERS: ATTEND Obstetrics & Gynecology
DX: O21.2 Late vomiting of pregnancy (principal); O99.891 Other specified diseases and conditions complicating pregnancy; R19.7 Diarrhea, unspecified; R10.9 Unspecified abdominal pain; O24.414 Gestational diabetes mellitus in pregnancy, insulin controlled; O13.3 Gestational [pregnancy-induced] hypertension without significant proteinuria, third trimester; Z20.822 Contact with and (suspected) exposure to COVID-19; Z3A.28 28 weeks gestation of pregnancy
CPT/HCPCS: 0202U; 80053; 81001; 82570; 84156; 85025; 96374; 99215; 81599; 87086

== ENCOUNTER 2020-09-21 15:27 | Outpatient (CLI) | payer OTHER ==
--- NOTE | 2020-09-22 14:19 | Ultrasound Report ---
PROCEDURE: OB F/U or Repeat INDICATIONS: SUPERVISION HIGH RISK , GESTATIONAL DIABE OUTSIDE/PRIOR DATING DATA: Last menstrual period (LMP): 02/13/20. LMP-based estimated date of delivery ([place]): 11/19/20. First dating scan (date and location): 04/18/20. Estimated date of delivery ([place]) from first dating scan: 11/19/20. Provider stated [place] 11/19/20. Be low data is based on 11/19/20. TECHNIQUE: Real-time scanning was performed of the fetus, with image documentation and biometric measurements. COMPARISON: OB ultrasound 09/01/20, 07/05/20 FINDINGS: General: A single living intrauterine gestation is present. Presentation: Transverse. Placenta: Placental position is anterior, without previa. Amniotic fluid index: 15 cm, 54th percentile for gestational age. 5 cm. heart rate: 153 beats per minute. Maternal cervical canal: 3.7 cm long; normal length is 2.5 cm or more. biometrics: Biparietal diameter: 7.9 cm 31 weeks 4 days Head circumference: 28.8 cm 31 weeks 5 days Abdominal circumference: 26.3 cm 30 weeks 3 days Femur length: 5.9 cm 30 weeks 5 days Estimated gestational age from initial scan: 31 weeks 4 days Composite gestational age from present scan: 31 weeks 1 days Estimated weight and percentile: 1629 g 16th percentile Measurement variability in biometric dating: +/- 10 days from 12-20 weeks gestation, +/- 2 weeks from 20-30 weeks gestation, +/- 3 weeks at 30 weeks gestation or more. Other: Not applicable. IMPRESSION: 1. Single live intrauterine . 2. Growth at the 16th percentile, compared to 43rd percentile on prior exam. Reviewed by: Nadeen Villasenor MD on 09/22/2020 1:18 PM BIJAL Approved by: Nadeen Villasenor MD on 09/22/2020 1:18 PM BIJAL Station ID: [id number]
== END 2020-09-21 15:28 | disposition home or self-care (01) ==
LOC: DI 15:27
PROVIDERS: ATTEND Obstetrics & Gynecology
DX: O09.90 Supervision of high risk pregnancy, unspecified, unspecified trimester (principal); O24.410 Gestational diabetes mellitus in pregnancy, diet controlled; Z3A.00 Weeks of gestation of pregnancy not specified

== ENCOUNTER 2020-09-22 11:20 | Outpatient (CLI) | payer OTHER ==
[2020-09-22 11:50] LABS: BASOPHILS % (AUTO) 0.1 %; EOSINOPHILS # (AUTO) 0.1 10^3/uL (0.0-0.7); EOSINOPHILS % (AUTO) 0.7 %; HCT - HEMATOCRIT 34.4 % (37.0-47.0); LYMPHOCYTES # (AUTO) 1.9 10^3/uL (1.5-3.5); LYMPHOCYTES % (AUTO) 18.1 %; MEAN CORPUSCULAR HEMOGLOBIN 26.3 pg (27.0-31.0); MEAN CORPUSCULAR VOLUME 82.3 fL (81.0-99.0); MEAN PLATELET VOLUME 10.1 fL (7.9-10.8); MONOCYTES # (AUTO) 0.6 10^3/uL (0.0-1.0); MONOCYTES % (AUTO) 5.9 %; NEUTROPHILS # (AUTO) 7.9 10^3/uL (1.5-6.6); NEUTROPHILS % (AUTO) 74.7 %; PLT - PLATELET COUNT 268 10^3/uL (130-450); RED BLOOD COUNT 4.18 10^6/uL (4.20-5.40); RED CELL DISTRIBUTION WIDTH 13.7 % (12.0-15.0); WHITE BLOOD COUNT 10.5 x10^3/uL (4.8-10.8)
[2020-09-22 12:02] LABS: ALBUMIN 3.4 g/dL (3.2-5.5); ALBUMIN/GLOBULIN RATIO 0.9 (1.0-2.2); BILIRUBIN,TOTAL 0.5 mg/dL (0.2-1.0); CALCIUM 9.3 mg/dL (8.5-10.3); CREATININE 0.6 mg/dL (0.4-1.0); POTASSIUM 3.7 mmol/L (3.5-5.0); URIC ACID 4.1 mg/dL (2.6-7.2)
[2020-09-22 12:08] LABS: CREATININE,URINE 44.6 mg/dL; TOTAL PROTEIN,URINE TIMED < 6 mg/dL
[2020-09-22 12:27] VITALS: BP 120/77
--- NOTE | 2020-09-24 16:48 | PROVIDER PROGRESS NOTE ---
- HPI Chief Complaint: Headache Current : Current EDU 11/19/20 Gestation 31 Weeks and 5 Days 2 Para 1 Vital Signs Temperature 98.8 F 09/22/20 11:38 Heart Rate 92 09/22/20 11:38 Respiratory Rate 16 09/22/20 11:38 Blood Pressure 134/89 H 09/22/20 11:38 O2 Saturation 100 09/22/20 11:38 Temperature 98.8 F 09/22/20 11:38 Heart Rate 92 09/22/20 11:38 Respiratory Rate 16 09/22/20 11:38 Blood Pressure 120/77 09/22/20 12:23 O2 Saturation 100 09/22/20 11:38 - Exam Patient is a 29 yo at 31+1 wga by LMP and 9 week us. Prior delivery was in June 2019, transferred to [place] for severe pre- eclampsia with delivery via CS at 35+4 wga. had been complicated by pre-eclampsia with severe features as well as GDM. Currently under treatment for A2DM. She presents today because she was havng and headache and sparkly lights in field of vision. Vision change has resolved and OSUNA is management. Wants BP check given hx of pre-eclampsia that was severe and progressed rapidly. Endorses FM. No LOF/CTX/VB PNC: DATING: LMP 02/03/2020 gives [place] 11/19/2020 US on 04/18/2020 at 9w0d gives [place] 11/21/2020, cwd. O pos/Rub imm Declines genetic testing FAS: CL 3.86, anterior, 3VC, EFW appropriate for age (%ile not given) FAS wnl other than suboptimal views of RVOT Influenza: 04/05/2020 TDaP: complete COVID: s/p injection x1 Glucola at 143 at 18 weeks; profiling with elevated FBG. Failed metformin/NPH, now well controlled on glyburide 2.5 mg po QHS. 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 No pending deployments but will have 2 detachments in Jun and August. 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 school at current T: none E: not at current D: none Safe at home ROS: As per HPI, otherwise remaining systems are negative PE: VS: See above GEN: NAD HEENT: NCAT CV: RRR RESP: CTAB ABD: gravid, S&NT. No RUQ TTP EXT: WWP, no LE edema PSYCH: appropriate affect NEURO: A&O - Procedures OB Procedure Performed: NST NST Procedure: NST Procedure Start Date 09/22/20 Start Time 11:37 Stop Time 12:00 Vibroacoustic Stimulation Used No Patient States Movement Yes EFM 145 mod janet 15x15 accels no decels TOCO: quiet Service Date of procedure: 09/22/20 Procedure Details: Cat I tracing PIH labs wnl BPs wnl - Plan Plan: 30 yo at 31+5 ega here for PreE assessment Normal blood pressures Normal PIH labs Cat I tracing Warning signs reviewed FU in clinic DX: Vision change and OSUNA Hx of severe pre-eclampsia A1DM IUP at 31+5
== END 2020-09-22 14:45 | disposition home or self-care (01) ==
LOC: WFO 11:20 → FBP 11:21 → WFO 14:45
PROVIDERS: ATTEND Obstetrics & Gynecology
DX: O99.891 Other specified diseases and conditions complicating pregnancy (principal); R51.9 Headache, unspecified; H53.9 Unspecified visual disturbance; O24.410 Gestational diabetes mellitus in pregnancy, diet controlled; Z3A.31 31 weeks gestation of pregnancy; Z87.59 Personal history of other complications of pregnancy, childbirth and the puerperium
CPT/HCPCS: 36415; 59025; 80053; 82570; 84156; 84550; 85025; 99212; 99214

== ENCOUNTER 2020-09-26 11:30 | Outpatient (CLI) | payer OTHER ==
[2020-09-26 12:16] LABS: CREATININE,URINE 47.9 mg/dL
[2020-09-26 12:16] LABS: BASOPHILS % (AUTO) 0.1 %; EOSINOPHILS % (AUTO) 0.3 %; HCT - HEMATOCRIT 34.2 % (37.0-47.0); HGB - HEMOGLOBIN 10.9 g/dL (12.0-16.0); LYMPHOCYTES % (AUTO) 21.3 %; MEAN CORPUSCULAR HEMOGLOBIN 26.2 pg (27.0-31.0); MEAN CORPUSCULAR HGB CONC 31.9 g/dL (32.0-36.0); MEAN CORPUSCULAR VOLUME 82.2 fL (81.0-99.0); MEAN PLATELET VOLUME 9.9 fL (7.9-10.8); MONOCYTES # (AUTO) 0.7 10^3/uL (0.0-1.0); MONOCYTES % (AUTO) 7.1 %; NEUTROPHILS # (AUTO) 6.7 10^3/uL (1.5-6.6); NEUTROPHILS % (AUTO) 70.8 %; PLT - PLATELET COUNT 242 10^3/uL (130-450); RED BLOOD COUNT 4.16 10^6/uL (4.20-5.40); RED CELL DISTRIBUTION WIDTH 13.7 % (12.0-15.0); WHITE BLOOD COUNT 9.5 x10^3/uL (4.8-10.8)
[2020-09-26 12:24] LABS: TOTAL PROTEIN,URINE TIMED < 6 mg/dL
[2020-09-26 12:30] LABS: ALBUMIN 3.4 g/dL (3.2-5.5); ALKALINE PHOSPHATASE 65 IU/L (42-121); ALT ALANINE AMINOTRANSFERASE < 10 IU/L (10-60); AST ASPARTATE AMINOTRANSFERASE 12 IU/L (10-42); BILIRUBIN,TOTAL 0.3 mg/dL (0.2-1.0); BUN - BLOOD UREA NITROGEN 8 mg/dL (6-20); CALCIUM 8.9 mg/dL (8.5-10.3); CARBON DIOXIDE - CO2 21 mmol/L (21-32); CHLORIDE 106 mmol/L (101-111); CREATININE 0.5 mg/dL (0.4-1.0); GFR - MDRD 146 (>89); GLUCOSE 82 mg/dL (70-100); POTASSIUM 4.4 mmol/L (3.5-5.0); SODIUM 137 mmol/L (135-145); TOTAL PROTEIN 6.9 g/dL (6.7-8.2); URIC ACID 3.8 mg/dL (2.6-7.2)
--- NOTE | 2020-09-26 13:26 | PROVIDER PROGRESS NOTE ---
- HPI Chief Complaint: Hypertension/PIH Current : Patient is a 30 yo at 32+2 wga here for pre-eclampsia assessment Patient has a hx of pre-eclampsia with severe features in prior . Had been transferred to [place] for management. Short interpregnancy interval. GDM on glyburide 2.5 mg po QHS after failing metformin and NPH. Has intermittent periods of "sparkle lights" in her vision. Took her blood pressure at home and it was high. No OSUNA or vision change at present. + FM. No LOF /CTX/VB. 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 No pending deployments but will have 2 detachments in Jun and August. 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 school at current T: none E: not at current D: none Safe at home ROS: As per HPI, otherwise remaining systems are negative - Exam GEN: NAD HEENT: NCAT CV: RR RESP: normal effort ABD: gravid, S&NT/ND EXT: WWP PSYCH: appropriate affect NEURO: A&O - Procedures OB Procedure Performed: NST Diagnosis/Indication for NST: Gestational Hypertension NST Procedure: NST Procedure Start Time 11:37 Stop Time 12:00 EFM 135 mod janet 15x15 accels no decels TOCO: quiet Service Date of procedure: 09/26/20 Procedure Details: Cat I tracing - Plan Plan: Patient is a 30 yo with GDM and hx of severe-preeclampsia here for assessment of vision change and elevated blood pressure at home. PreE Assessment: -Normal BPs in triage -PI labs wnl -No current symptoms *Warning signs reviewed FWB: Cat I tracing Cont with twice weekly NST and weekly RY Warning signs reviewed FU in clinic for OB care
[2020-09-26 17:27] VITALS: BP 122/7
== END 2020-09-26 13:15 | disposition home or self-care (01) ==
LOC: WFO 11:30 → FBP 11:31 → WFO 13:15
PROVIDERS: ATTEND Obstetrics & Gynecology
DX: O13.3 Gestational [pregnancy-induced] hypertension without significant proteinuria, third trimester (principal); Z3A.32 32 weeks gestation of pregnancy; O24.415 Gestational diabetes mellitus in pregnancy, controlled by oral hypoglycemic drugs; Z87.440 Personal history of urinary (tract) infections; Z87.59 Personal history of other complications of pregnancy, childbirth and the puerperium
CPT/HCPCS: 36415; 59025; 80053; 82570; 84156; 84550; 85025; 99214

== ENCOUNTER 2020-09-29 16:17 | Outpatient (CLI) | payer OTHER ==
[2020-09-29 16:34] VITALS: BP 129/80
--- NOTE | 2020-09-29 19:02 | Ultrasound Report ---
PROCEDURE: OB Limited INDICATIONS: RY for GDM OUTSIDE/PRIOR DATING DATA: Last menstrual period (LMP): 02/13/2020. LMP-based estimated date of delivery ([place]): 11/19/2020. First dating scan (date and location): 04/18/2020. Estimated date of delivery ([place]) from first dating scan: 11/19/2020 (provider stated). TECHNIQUE: Real-time scanning was performed of the fetus, with image documentation. Endovaginal scanning: Not performed COMPARISON: 04/18/2020, 05/22/2020, 07/05/2020, 09/01/2020, 09/21/2020. FINDINGS: A single living intrauterine gestation is present. Presentation: Transverse, head maternal right Placenta: Placental position is anterior, without previa. Amniotic fluid index: 15.0 cm, 54th percentile for gestational age. heart rate: 143 beats per minutes. Estimated gestational age from initial scan: 32 weeks 5 days. IMPRESSION: Single living intrauterine fetus in transverse presentation. Normal RY. Reviewed by: Lambert Mcbride MD on 09/29/2020 7:00 PM PDT Approved by: Lambert Mcbride MD on 09/29/2020 7:00 PM PDT Station ID: [id number]
--- NOTE | 2020-09-30 11:35 | PROCEDURE REPORT ---
- HPI Diagnosis/Indication for NST: Gestational Diabetes Current EDU 11/19/20 Gestation 32 Weeks and 5 Days 2 Para 1 Vital Signs Temperature 98.6 F 09/29/20 16:31 Heart Rate 90 09/29/20 16:31 Respiratory Rate 17 09/29/20 16:31 Blood Pressure 129/80 09/29/20 16:31 O2 Saturation 99 09/29/20 16:31 Temperature 98.6 F 09/29/20 16:31 Heart Rate 90 09/29/20 16:31 Respiratory Rate 17 09/29/20 16:31 Blood Pressure 129/80 09/29/20 16:31 O2 Saturation 99 09/29/20 16:31 - NST Procedure NST Procedure Start Date 09/29/20 Start Time 16:25 Stop Time 16:55 Vibroacoustic Stimulation Used No Patient States Movement Yes - Results and Plan Findings/Impression: Baseline: BPM 145 Variability: Moderate Accelerations: Present Decelerations: Absent Trends in FHR over time: no changes [place] contractions in 10 minutes: 0 Impression: reactive Category 1 NST
== END 2020-09-29 18:49 | disposition home or self-care (01) ==
LOC: WFO 16:17 → FBP 16:18 → WFO 18:49
PROVIDERS: ATTEND Obstetrics & Gynecology
DX: O24.419 Gestational diabetes mellitus in pregnancy, unspecified control (principal); Z3A.32 32 weeks gestation of pregnancy
CPT/HCPCS: 59025

== ENCOUNTER 2020-10-02 | Outpatient (CLI) | payer OTHER ==
--- NOTE | 2020-10-02 13:17 | PROCEDURE REPORT ---
- HPI Diagnosis/Indication for NST: Gestational Diabetes Current EDU 11/19/20 Gestation 33 Weeks and 1 Days 2 Para 1 Vital Signs Temperature 98.1 F 10/02/20 10:15 Heart Rate 88 10/02/20 10:15 Respiratory Rate 18 10/02/20 10:15 Blood Pressure 122/80 10/02/20 10:15 O2 Saturation 98 10/02/20 10:15 Temperature 98.1 F 10/02/20 10:15 Heart Rate 88 10/02/20 10:15 Respiratory Rate 18 10/02/20 10:15 Blood Pressure 122/80 10/02/20 10:15 O2 Saturation 98 10/02/20 10:15 - NST Procedure NST Procedure Start Date 10/02/20 Start Time 10:05 Stop Time 10:40 Vibroacoustic Stimulation Used No Patient States Movement Yes - Results and Plan Findings/Impression: Baseline: BPM 145 Variability: Moderate Accelerations: present Decelerations: Absent Trends in FHR over time: no changes [place] contractions in 10 minutes: 0 Impression: reactive Category 1 NST
== END 2020-10-02 10:50 | disposition home or self-care (01) ==
CPT/HCPCS: 59025

== ENCOUNTER 2020-10-03 19:24 | Outpatient (CLI) | payer OTHER ==
[2020-10-03 20:10] LABS: BASOPHILS % (AUTO) 0.1 %; EOSINOPHILS % (AUTO) 0.4 %; HCT - HEMATOCRIT 33.2 % (37.0-47.0); HGB - HEMOGLOBIN 10.3 g/dL (12.0-16.0); LYMPHOCYTES # (AUTO) 2.4 10^3/uL (1.5-3.5); LYMPHOCYTES % (AUTO) 24.5 %; MEAN CORPUSCULAR HEMOGLOBIN 25.4 pg (27.0-31.0); MEAN CORPUSCULAR VOLUME 81.8 fL (81.0-99.0); MEAN PLATELET VOLUME 9.4 fL (7.9-10.8); MONOCYTES # (AUTO) 0.8 10^3/uL (0.0-1.0); MONOCYTES % (AUTO) 8.5 %; NEUTROPHILS # (AUTO) 6.5 10^3/uL (1.5-6.6); NEUTROPHILS % (AUTO) 66.1 %; PLT - PLATELET COUNT 218 10^3/uL (130-450); RED BLOOD COUNT 4.06 10^6/uL (4.20-5.40); RED CELL DISTRIBUTION WIDTH 13.9 % (12.0-15.0); WHITE BLOOD COUNT 9.8 x10^3/uL (4.8-10.8)
[2020-10-03 20:23] LABS: ALBUMIN 3.2 g/dL (3.2-5.5); ALBUMIN/GLOBULIN RATIO 0.9 (1.0-2.2); BILIRUBIN,TOTAL 0.4 mg/dL (0.2-1.0); CALCIUM 9.1 mg/dL (8.5-10.3); CREATININE 0.6 mg/dL (0.4-1.0); POTASSIUM 3.4 mmol/L (3.5-5.0); TOTAL PROTEIN 6.6 g/dL (6.7-8.2)
[2020-10-03 20:39] LABS: CREATININE,URINE 77.6 mg/dL; TOTAL PROTEIN,URINE TIMED < 6 mg/dL
[2020-10-03 20:55] VITALS: BP 130/65
--- NOTE | 2020-10-05 11:03 | PROVIDER PROGRESS NOTE ---
- HPI Current : Current EDU 11/19/20 Gestation 33 Weeks and 2 Days 2 Para 1 Vital Signs Temperature 98 F 10/03/20 19:33 Heart Rate 88 10/03/20 19:33 Respiratory Rate 18 10/03/20 19:33 Blood Pressure 132/68 H 10/03/20 19:33 O2 Saturation 100 10/03/20 19:33 Temperature 98 F 10/03/20 19:33 Heart Rate 88 10/03/20 19:55 Respiratory Rate 18 10/03/20 19:33 Blood Pressure 130/65 10/03/20 20:18 O2 Saturation 100 10/03/20 19:33 - Procedures NST Procedure: NST Procedure Start Date 10/03/20 Start Time 19:31 Stop Time 20:17 Vibroacoustic Stimulation Used No Patient States Movement Yes - Plan Plan: CC: visual changes HPI: having visual changes today, iyer. Has had these before during this but is aware that she needs to be checked if this happens. No OSUNA or upper abd pain. Increased swelling is present--hard to wear same rings. O: aVSS, BP normal Alert, resting comfortably, NAD Abd soft, nt/nd Trace LE edema bilat 1+ patellar DTR bilat Normal PIH labs Baseline: BPM 150 Variability: Moderate Accelerations: Present Decelerations: Absent Trends in FHR over time: no changes [place] contractions in 10 minutes: 0 Impression: reactive Category 1 NST A/P: 30yo with visual scintillation, no evidence of preeclampsia, P:C ratio is 0 and BP normal. PIH precautions given.
== END 2020-10-03 20:45 | disposition home or self-care (01) ==
LOC: WFO 19:24 → FBP 19:26 → WFO 20:45
PROVIDERS: ATTEND Obstetrics & Gynecology
DX: O99.891 Other specified diseases and conditions complicating pregnancy (principal); H53.8 Other visual disturbances; O12.03 Gestational edema, third trimester; O24.419 Gestational diabetes mellitus in pregnancy, unspecified control; Z3A.33 33 weeks gestation of pregnancy
CPT/HCPCS: 36415; 59025; 80053; 82570; 84156; 85025; 99212; 99214

== ENCOUNTER 2020-10-06 16:20 | Outpatient (CLI) | payer OTHER ==
[2020-10-06 16:51] VITALS: BP 124/73
--- NOTE | 2020-10-06 18:30 | Ultrasound Report ---
PROCEDURE: OB Limited INDICATIONS: gestational DM OUTSIDE/PRIOR DATING DATA: Last menstrual period (LMP): 02/13/2020. LMP-based estimated date of delivery ([place]): 11/19/2020. First dating scan (date and location): 04/18/2020. Estimated date of delivery ([place]) from first dating scan: 11/19/2020, (provider stated). TECHNIQUE: Real-time scanning was performed of the fetus, with image documentation. Endovaginal scanning: Not performed. COMPARISON: 09/29/2020 FINDINGS: A single living intrauterine gestation is present. Presentation: Cephalic Placenta: Placental position is anterior, without previa. Amniotic fluid index: 11.2 cm, within normal limits for gestational age. 21 percentile. Largest pocke t 4.3 cm. heart rate: 144 beats per minutes. Maternal cervical canal: Not well seen. No funneling appreciated. Estimated gestational age from ultrasound: 33 weeks 5 days. IMPRESSION: 1. Tony living intrauterine at 33 weeks 5 days based on prior dating. Cephalic positio n. 2. Normal placenta and amniotic fluid. Reviewed by: Jayme Blackman MD on 10/06/2020 6:29 PM PDT Approved by: Jayme Blackman MD on 10/06/2020 6:29 PM PDT Station ID: [id number]
--- NOTE | 2020-10-10 04:38 | PROCEDURE REPORT ---
- HPI Diagnosis/Indication for NST: Gestational Diabetes Current EDU 11/19/20 Gestation 33 Weeks and 5 Days 2 Para 1 Vital Signs Heart Rate 85 10/06/20 16:46 Respiratory Rate 18 10/06/20 16:46 Blood Pressure 132/82 H 10/06/20 16:46 O2 Saturation 98 10/06/20 16:46 Temperature Heart Rate 96 10/06/20 16:51 Respiratory Rate 18 10/06/20 16:46 Blood Pressure 124/73 10/06/20 16:51 O2 Saturation 98 10/06/20 16:46 - NST Procedure NST Procedure Start Date 10/06/20 Start Time 16:29 Stop Time 17:15 Vibroacoustic Stimulation Used No Patient States Movement Yes - Results and Plan Findings/Impression: Baseline: BPM 150 Variability: Moderate Accelerations: Present Decelerations: Absent Trends in FHR over time: baseline 150 to start and 140 at end [place] contractions in 10 minutes: 0 Impression: reactive Category 1 NST
== END 2020-10-06 18:00 | disposition home or self-care (01) ==
LOC: WFO 16:20 → FBP 16:21 → WFO 18:00
PROVIDERS: ATTEND Obstetrics & Gynecology
DX: O24.419 Gestational diabetes mellitus in pregnancy, unspecified control (principal); Z3A.33 33 weeks gestation of pregnancy
CPT/HCPCS: 59025

== ENCOUNTER 2020-10-09 09:55 | Outpatient (CLI) | payer OTHER ==
[2020-10-09 10:14] VITALS: BP 128/77
--- NOTE | 2020-10-09 11:44 | Ultrasound Report ---
PROCEDURE: OB Biophysical Profile INDICATIONS: Patient c/o decreased movement. GDM, gHTN OUTSIDE/PRIOR DATING DATA: Last menstrual period (LMP): 02/13/2020. LMP-based estimated date of delivery ([place]): Successfully 10/15. First dating scan (date and location): 04/18/2020. Estimated date of delivery ([place]) from first dating scan: 11/19/2020. TECHNIQUE: Real-time scanning was performed of the fetus, with image documentation and biometric tasia surements. Biophysical profile was also obtained. Endovaginal scanning: Not performed COMPARISON: OB ultrasounds dated 09/29/2020 and 10/07/2019 oh FINDINGS: General: A single living intrauterine gestation is present. Presentation: Cephalic Placenta: Placental position is anterior, without previa. Amniotic fluid index: 9.2 cm, 9% for gestational age. heart rate: 135 beats per minute. Maternal cervical canal: 3.0 cm long; normal length is 2.5 cm or more. Biophysical profile: Tone: 2 points. Movement: 2 points. Respiration: 2 points. Largest pocket of fluid: 2 points. Umbilical artery Doppler: Umbilical cord Doppler demonstrates continuous antegrade flow. S/D ratio m easures between 2.27 and 2.5. Resistive indices measures between 0.56 and 0.60. IMPRESSION: Single living intrauterine gestation with heart rate of 135 bpm. The fetus is in cephalic posit ion. Normal placenta and amniotic fluid. Color Doppler as with S/D ratios measuring between 2.2 cm and 2.5. Resistive indices measure between 0.56 and 0.6. There is continuous antegrade diastolic flow. Reviewed by: Garret Staley DO on 10/09/2020 10:43 AM BIJAL Approved by: Garret Staley DO on 10/09/2020 10:43 AM BIJAL Station ID: [id number]
--- NOTE | 2020-10-10 04:35 | PROCEDURE REPORT ---
- HPI Diagnosis/Indication for NST: Gestational Diabetes Current EDU 11/19/20 Gestation 34 Weeks and 1 Days 2 Para 1 Vital Signs Temperature 98.1 F 10/09/20 10:08 Heart Rate 83 10/09/20 10:08 Respiratory Rate 18 10/09/20 10:08 Blood Pressure 128/77 10/09/20 10:08 O2 Saturation 99 10/09/20 10:08 Temperature 98.1 F 10/09/20 10:08 Heart Rate 83 10/09/20 10:08 Respiratory Rate 18 10/09/20 10:08 Blood Pressure 128/77 10/09/20 10:08 O2 Saturation 99 10/09/20 10:08 - NST Procedure NST Procedure Start Date 10/09/20 Start Time 10:05 Stop Time 10:41 Vibroacoustic Stimulation Used No Patient States Movement Yes: Decreased and more subtle movements - Results and Plan Findings/Impression: Baseline: BPM 150 Variability: Moderate Accelerations: Present but not 2 in 20min Decelerations: Absent Trends in FHR over time: no changes [place] contractions in 10 minutes: 0 Impression: Category 1 NST BPP 10
== END 2020-10-09 12:00 | disposition home or self-care (01) ==
LOC: WFO 09:55 → FBP 09:57 → WFO 12:00
PROVIDERS: ATTEND Obstetrics & Gynecology
DX: O24.419 Gestational diabetes mellitus in pregnancy, unspecified control (principal); O36.8330 Maternal care for abnormalities of the fetal heart rate or rhythm, third trimester, not applicable or unspecified; Z3A.34 34 weeks gestation of pregnancy
CPT/HCPCS: 59025

== ENCOUNTER 2020-10-13 16:28 | Outpatient (CLI) | payer OTHER ==
[2020-10-13 16:38] VITALS: BP 126/77
--- NOTE | 2020-10-13 18:14 | PROCEDURE REPORT ---
- HPI Diagnosis/Indication for NST: Gestational Diabetes Current EDU 11/19/20 Gestation 34 Weeks and 5 Days 2 Para 1 Vital Signs Temperature 36.8 C 10/13/20 16:37 Heart Rate 94 10/13/20 16:37 Respiratory Rate 18 10/13/20 16:37 Blood Pressure 126/77 10/13/20 16:37 O2 Saturation 100 10/13/20 16:37 Temperature 36.8 C 10/13/20 16:37 Heart Rate 94 10/13/20 16:37 Respiratory Rate 18 10/13/20 16:37 Blood Pressure 126/77 10/13/20 16:37 O2 Saturation 100 10/13/20 16:37 - NST Procedure NST Procedure Start Date 10/13/20 Start Time 16:35 Stop Time 16:58 Vibroacoustic Stimulation Used No Patient States Movement Yes - Results and Plan Findings/Impression: good fm noted. Strip is reactive. two acceleration late in the strip. Plan: followup NST sat.
== END 2020-10-13 17:02 | disposition home or self-care (01) ==
LOC: WFO 16:28 → FBP 16:32 → WFO 17:02
PROVIDERS: ATTEND Obstetrics & Gynecology
DX: O24.419 Gestational diabetes mellitus in pregnancy, unspecified control (principal); Z3A.34 34 weeks gestation of pregnancy
CPT/HCPCS: 59025

== ENCOUNTER 2020-10-16 14:39 | Outpatient (CLI) | payer OTHER ==
[2020-10-16 15:09] VITALS: BP 126/87
[2020-10-16 15:14] LABS: BILIRUBIN,URINE NEGATIVE (NEGATIVE); GLUCOSE, URINE (UA) NEGATIVE (NEGATIVE); KETONES,URINE (UA) NEGATIVE (NEGATIVE); LEUKOCYTE ESTERASE, URINE SMALL (NEGATIVE); NITRITE,URINE NEGATIVE (NEGATIVE); OCCULT BLOOD,URINE NEGATIVE (NEGATIVE); PROTEIN,URINE NEGATIVE (NEGATIVE); UROBILINOGEN,URINE 0.2 (NORMAL) E.U./dL (NORMAL)
[2020-10-16 15:15] LABS: CLARITY,URINE HAZY (CLEAR)
[2020-10-16 15:31] LABS: BACTERIA,URINE Moderate /HPF (None Seen); RBC,URINE None Seen /HPF (0-5); SQUAMOUS EPITHELIAL CELL,UR MANY Squamous (<= Few)
--- NOTE | 2020-10-19 13:00 | PROCEDURE REPORT ---
- HPI Diagnosis/Indication for NST: Gestational Diabetes Current EDU 11/19/20 Gestation 35 Weeks and 1 Days 2 Para 1 Vital Signs Temperature 36.4 C L 10/16/20 15:07 Heart Rate 105 H 10/16/20 15:07 Respiratory Rate 18 10/16/20 15:07 Blood Pressure 126/87 H 10/16/20 15:07 Temperature 36.4 C L 10/16/20 15:07 Heart Rate 105 H 10/16/20 15:07 Respiratory Rate 18 10/16/20 15:07 Blood Pressure 126/87 H 10/16/20 15:07 O2 Saturation - NST Procedure NST Procedure Start Date 10/16/20 Start Time 14:51 Stop Time 15:15 Vibroacoustic Stimulation Used No Patient States Movement Yes - Results and Plan Findings/Impression: REACTIVE NST Plan: CONTINUE TESTING dos 10/16/20 2021
== END 2020-10-16 15:30 | disposition home or self-care (01) ==
LOC: WFO 14:39 → FBP 14:41 → WFO 15:30
PROVIDERS: ATTEND Obstetrics & Gynecology
DX: O24.419 Gestational diabetes mellitus in pregnancy, unspecified control (principal); Z3A.35 35 weeks gestation of pregnancy
CPT/HCPCS: 59025; 81001; 87086

== ENCOUNTER 2020-10-20 19:27 | Outpatient (CLI) | payer OTHER ==
--- NOTE | 2020-10-22 09:45 | Ultrasound Report ---
PROCEDURE: OB Limited INDICATIONS: SUPERVISION HIGH RISK OUTSIDE/PRIOR DATING DATA: Last menstrual period (LMP): 02/13/2020. LMP-based estimated date of delivery ([place]): 11/19/2020. First dating scan (date and location): 04/18/2020. Estimated date of delivery ([place]) from first dating scan: 11/19/2020. The below data below was generated using the provider stated [place] of 11/19/2020 TECHNIQUE: Real-time scanning was performed of the fetus, with image documentation. Endovaginal scanning: Not dictated COMPARISON: 10/09/2020, 10/06/2020, 09/29/2020. FINDINGS: A single living intrauterine gestation is present. Presentation: Vertex Placenta: Placental position is anterior, without previa. Amniotic fluid index: 10.2 cm, which is between 10-11 percentile for gestational age. heart rate: 158 beats per minutes. Maternal cervical canal: Not visualized. Estimated gestational age from initial scan: 35 weeks, 5 days. chest, stomach, bilateral kidneys and urinary bladder are visualized and are within normal limi ts. IMPRESSION: 1. Single live intrauterine with fetus in vertex presentation. heart rate is 158 bpm. 2. RY equals 10.2 cm on the current study which is between 10-11 percentile for gestational age. Reviewed by: Fracisco Weir MD on 10/22/2020 9:43 AM PDT Approved by: Fracisco Weir MD on 10/22/2020 9:43 AM PDT Station ID: [id number]
== END 2020-10-20 19:28 | disposition home or self-care (01) ==
LOC: DI 19:27
PROVIDERS: ATTEND Obstetrics & Gynecology
DX: O09.90 Supervision of high risk pregnancy, unspecified, unspecified trimester (principal); O24.410 Gestational diabetes mellitus in pregnancy, diet controlled; Z3A.35 35 weeks gestation of pregnancy

== ENCOUNTER 2020-10-20 19:28 | Outpatient (CLI) | payer OTHER ==
[2020-10-20 19:46] VITALS: BP 131/71
--- NOTE | 2020-10-20 23:00 | PROCEDURE REPORT ---
- HPI Diagnosis/Indication for NST: Gestational Diabetes Current EDU 11/19/20 Gestation 35 Weeks and 5 Days 2 Para 1 Vital Signs Temperature 98.7 F 10/20/20 19:44 Heart Rate 85 10/20/20 19:44 Respiratory Rate 16 10/20/20 19:44 Blood Pressure 131/71 H 10/20/20 19:44 O2 Saturation 97 10/20/20 19:44 Temperature 98.7 F 10/20/20 19:44 Heart Rate 85 10/20/20 19:44 Respiratory Rate 16 10/20/20 19:44 Blood Pressure 131/71 H 10/20/20 19:44 O2 Saturation 97 10/20/20 19:44 - NST Procedure NST Procedure Start Date 10/20/20 Start Time 19:40 Stop Time 20:03 Vibroacoustic Stimulation Used Yes Patient States Movement Yes EFM 140 mod janet 15x15 accels no decels TOCO: quiet - Results and Plan Findings/Impression: 30 yo at 35+5 wga with GDM and GHTN here for NST Cat I tracing Cont with twice weekly NST and weekly RY DX: IUP at 35+5 GHTN GDM
== END 2020-10-20 20:15 | disposition home or self-care (01) ==
LOC: WFO 19:28 → FBP 19:30 → WFO 20:15
PROVIDERS: ATTEND Obstetrics & Gynecology
DX: O09.90 Supervision of high risk pregnancy, unspecified, unspecified trimester (principal); O24.410 Gestational diabetes mellitus in pregnancy, diet controlled; O13.3 Gestational [pregnancy-induced] hypertension without significant proteinuria, third trimester; Z3A.35 35 weeks gestation of pregnancy
CPT/HCPCS: 59025

== ENCOUNTER 2020-10-23 14:39 | Outpatient (CLI) | payer OTHER ==
--- NOTE | 2020-10-23 20:37 | Ultrasound Report ---
PROCEDURE: OB Limited INDICATIONS: SUPERVISION OF HIGH RISK OUTSIDE/PRIOR DATING DATA: Last menstrual period (LMP): 02/13/2020. LMP-based estimated date of delivery ([place]): 11/19/2020. First dating scan (date and location): 04/18/2020. Estimated date of delivery ([place]) from first dating scan: 11/19/2020. The below data below was generated using the ultrasound generated [place] of 11/19/2020 TECHNIQUE: Real-time scanning was performed of the fetus, with image documentation. COMPARISON: Several priors, including 10/20/2020, 10/09/2020, 05/22/2020, and 04/18/2020. FINDINGS: A single live intrauterine gestation is present. Presentation: Vertex Placenta: Placental position is anterior, without previa. Amniotic fluid index: 10.3 cm, 5-50 percentile for gestational age. heart rate: 144 beats per minutes. Maternal cervical canal: Not well seen. Estimated gestational age from initial scan: 36 weeks 1 day. IMPRESSION: Unremarkable limited OB examination. Note: Concordant preliminary findings given by the global implementation manager upon the completion of the examination to nurse Dyer at 3:08 PM on 10/23/2020. Reviewed by: Lan Villarreal MD on 10/23/2020 7:36 PM BIJAL Approved by: Lan Villarreal MD on 10/23/2020 7:36 PM BIJAL Station ID: [id number]
== END 2020-10-23 14:40 | disposition home or self-care (01) ==
LOC: DI 14:39
PROVIDERS: ATTEND Obstetrics & Gynecology
DX: O24.410 Gestational diabetes mellitus in pregnancy, diet controlled (principal); O09.93 Supervision of high risk pregnancy, unspecified, third trimester; Z3A.36 36 weeks gestation of pregnancy

== ENCOUNTER 2020-10-23 15:01 | Outpatient (CLI) | payer OTHER ==
[2020-10-23 16:08] VITALS: BP 128/77
--- NOTE | 2020-10-24 13:08 | PROCEDURE REPORT ---
- HPI Diagnosis/Indication for NST: Gestational Diabetes Current EDU 11/19/20 Gestation 36 Weeks and 1 Days 2 Para 1 Vital Signs Temperature 98.2 F 10/23/20 15:14 Heart Rate 98 10/23/20 15:14 Respiratory Rate 18 10/23/20 15:14 Blood Pressure 128/77 10/23/20 15:14 O2 Saturation 98 10/23/20 15:14 Temperature 98.2 F 10/23/20 15:14 Heart Rate 98 10/23/20 15:14 Respiratory Rate 18 10/23/20 15:14 Blood Pressure 128/77 10/23/20 15:14 O2 Saturation 98 10/23/20 15:14 - NST Procedure NST Procedure Start Date 10/23/20 Start Time 15:11 Stop Time 15:32 Vibroacoustic Stimulation Used No Patient States Movement Yes EFM 140 mod janet 15x15 accels no decels TOCO: quiet - Results and Plan Findings/Impression: 40 yo at 36+1 wga with affected by GDM and GHTN here for NST Cat I tracing RY 10.3 Cont with twice weekly NST and weekly RY
== END 2020-10-23 15:40 | disposition home or self-care (01) ==
LOC: WFO 15:01 → FBP 15:03 → WFO 15:40
PROVIDERS: ATTEND Obstetrics & Gynecology
DX: O09.93 Supervision of high risk pregnancy, unspecified, third trimester (principal); O24.410 Gestational diabetes mellitus in pregnancy, diet controlled; O13.3 Gestational [pregnancy-induced] hypertension without significant proteinuria, third trimester; Z3A.36 36 weeks gestation of pregnancy
CPT/HCPCS: 59025

== ENCOUNTER 2020-10-27 08:00 | Outpatient (CLI) | payer OTHER | END 2020-10-27 23:59 | disposition home or self-care (01) | LOC: LAB.WC 08:00 | PROVIDERS: ATTEND Obstetrics & Gynecology | DX: Z36.85 Encounter for antenatal screening for Streptococcus B (principal) | CPT/HCPCS: 87797 ==

== ENCOUNTER 2020-10-27 16:26 | Outpatient (CLI) | payer OTHER ==
[2020-10-27 16:35] VITALS: BP 137/75
--- NOTE | 2020-11-22 21:29 | PROCEDURE REPORT ---
- HPI Diagnosis/Indication for NST: Gestational Hypertension Current EDU 11/19/20 Gestation 36 Weeks and 5 Days 2 Para 1 Vital Signs Temperature 98.6 F 10/27/20 16:33 Heart Rate 84 10/27/20 16:33 Respiratory Rate 18 10/27/20 16:33 Blood Pressure 137/75 H 10/27/20 16:33 O2 Saturation 99 10/27/20 16:33 Temperature 98.6 F 10/27/20 16:33 Heart Rate 84 10/27/20 16:33 Respiratory Rate 18 10/27/20 16:33 Blood Pressure 137/75 H 10/27/20 16:33 O2 Saturation 99 10/27/20 16:33 - NST Procedure NST Procedure Start Date 10/27/20 Start Time 16:32 Stop Time 17:05 Vibroacoustic Stimulation Used No Patient States Movement No EFM 135 mod janet 15x15 accels no decels TOCO: quiet - Results and Plan Findings/Impression: 30 yo at 36+5 wga with affected by GHTN here for NST Cat I tracing Cont with twice weekly NST and weekly RY DX: IUP at 36+5 wga GHTN NST read 10/27/20 DOS 10/27/20
== END 2020-10-27 17:10 | disposition home or self-care (01) ==
LOC: WFO 16:26 → FBP 16:27 → WFO 17:10
PROVIDERS: ATTEND Obstetrics & Gynecology
DX: O13.3 Gestational [pregnancy-induced] hypertension without significant proteinuria, third trimester (principal); Z3A.36 36 weeks gestation of pregnancy; Z36.85 Encounter for antenatal screening for Streptococcus B
CPT/HCPCS: 59025; 87797

== ENCOUNTER 2020-10-30 14:30 | Outpatient (CLI) | payer OTHER ==
--- NOTE | 2020-10-30 18:18 | Ultrasound Report ---
PROCEDURE: OB Limited INDICATIONS: SUPERVISION OF HIGH RISK OUTSIDE/PRIOR DATING DATA: Last menstrual period (LMP): 02/13/2020. LMP-based estimated date of delivery ([place]): 11/19/2020. First dating scan (date and location): 04/18/2020. Estimated date of delivery ([place]) from first dating scan: 11/19/2020. TECHNIQUE: Real-time scanning was performed of the fetus, with image documentation. Endovaginal scanning: Not needed COMPARISON: Prior OB ultrasound 10/23/2020 FINDINGS: A single living intrauterine gestation is present. Presentation: Vertex Placenta: Placental position is anterior, without previa. Amniotic fluid index: 10.7 cm, normal for gestational age. heart rate: 147 beats per minutes. Maternal cervical canal was not well seen. Estimated gestational age from initial scan: 37 weeks 1 day. IMPRESSION: Single living intrauterine gestation with normal amniotic fluid volume and vertex presen tation. The maternal cervical canal could not be well visualized due to low vertex presentation. The delivery date is projected to be centered on 11/19/2020. Reviewed by: Grant Vanessa MD on 10/30/2020 5:17 PM BIJAL Approved by: Grant Vanessa MD on 10/30/2020 5:17 PM [place] Station ID: [id number]
== END 2020-10-30 14:31 | disposition home or self-care (01) ==
LOC: DI 14:30
PROVIDERS: ATTEND Obstetrics & Gynecology
DX: O09.90 Supervision of high risk pregnancy, unspecified, unspecified trimester (principal); O24.410 Gestational diabetes mellitus in pregnancy, diet controlled; Z3A.37 37 weeks gestation of pregnancy

== ENCOUNTER 2020-10-30 14:52 | Outpatient (CLI) | payer OTHER ==
[2020-10-30 15:22] VITALS: BP 128/85
--- NOTE | 2020-10-31 11:04 | PROCEDURE REPORT ---
- HPI Diagnosis/Indication for NST: Gestational Diabetes Current EDU 11/19/20 Gestation 37 Weeks and 1 Days 2 Para 1 Vital Signs Temperature 36.6 C 10/30/20 15:18 Heart Rate 96 10/30/20 15:18 Respiratory Rate 16 10/30/20 15:18 Blood Pressure 128/85 H 10/30/20 15:18 O2 Saturation 100 10/30/20 15:18 Temperature 36.6 C 10/30/20 15:18 Heart Rate 96 10/30/20 15:18 Respiratory Rate 16 10/30/20 15:18 Blood Pressure 128/85 H 10/30/20 15:18 O2 Saturation 100 10/30/20 15:18 - NST Procedure NST Procedure Start Date 10/30/20 Start Time 15:00 Stop Time 15:26 Vibroacoustic Stimulation Used No Patient States Movement Yes - Results and Plan Findings/Impression: DOS 10/30/20 REACTIVE NST Plan: CONTINUE TESTING
== END 2020-10-30 15:00 | disposition home or self-care (01) ==
LOC: WFO 14:52 → FBP 14:54 → WFO 15:00
PROVIDERS: ATTEND Obstetrics & Gynecology
DX: O24.410 Gestational diabetes mellitus in pregnancy, diet controlled (principal); O09.90 Supervision of high risk pregnancy, unspecified, unspecified trimester; Z3A.37 37 weeks gestation of pregnancy
CPT/HCPCS: 59025

== ENCOUNTER 2020-11-02 08:03 | Inpatient (IN) | payer OTHER ==
[2020-11-02 08:39] LABS: BASOPHILS % (AUTO) 0.1 %; EOSINOPHILS % (AUTO) 0.2 %; HCT - HEMATOCRIT 35.5 % (37.0-47.0); HGB - HEMOGLOBIN 11.3 g/dL (12.0-16.0); LYMPHOCYTES # (AUTO) 2.2 10^3/uL (1.5-3.5); LYMPHOCYTES % (AUTO) 21.8 %; MEAN CORPUSCULAR HEMOGLOBIN 25.3 pg (27.0-31.0); MEAN CORPUSCULAR HGB CONC 31.8 g/dL (32.0-36.0); MEAN CORPUSCULAR VOLUME 79.6 fL (81.0-99.0); MEAN PLATELET VOLUME 10.6 fL (7.9-10.8); MONOCYTES # (AUTO) 0.6 10^3/uL (0.0-1.0); MONOCYTES % (AUTO) 6.2 %; NEUTROPHILS # (AUTO) 7.2 10^3/uL (1.5-6.6); NEUTROPHILS % (AUTO) 71.1 %; PLT - PLATELET COUNT 228 10^3/uL (130-450); RED BLOOD COUNT 4.46 10^6/uL (4.20-5.40); RED CELL DISTRIBUTION WIDTH 14.6 % (12.0-15.0); WHITE BLOOD COUNT 10.1 x10^3/uL (4.8-10.8)
[2020-11-02 08:52] LABS: ALT ALANINE AMINOTRANSFERASE < 10 IU/L (10-60); AST ASPARTATE AMINOTRANSFERASE 15 IU/L (10-42); CREATININE 0.6 mg/dL (0.4-1.0); GFR - MDRD 118 (>89)
[2020-11-02 08:52] LABS: CREATININE,URINE 214.2 mg/dL; PROTEIN/CREATININE RATIO,URINE 0.1 (<=0.2)
[2020-11-02] MEDS ORDERED: METHYLERGONOVINE 0.2 MG/ML VIAL ONE (15:16)
[2020-11-02] MEDS ORDERED: CARBOPROST TROMETHAMINE 250 MCG/ML AMP IM ONE (15:16)
[2020-11-02] MEDS ORDERED: miSOPROStoL 200 MCG TABLET ONE (15:16)
[2020-11-02] MEDS ORDERED: fentaNYL 100 MCG/2 ML VIAL ONE (15:20)
[2020-11-02] MEDS ORDERED: SIMETHICONE CHEW 80 MG TABLET PO PRN (15:45)
[2020-11-02] MEDS ORDERED: OXYTOCIN/SODIUM CHLORIDE 500 ML IV PRN (15:45)
[2020-11-02] MEDS ORDERED: ONDANSETRON ODT 4 MG TABLET TL PRN (15:45)
[2020-11-02] MEDS ORDERED: SODIUM CHLORIDE FLUSH 0.9% 10 ML SYRINGE IVP PRN (15:45)
[2020-11-02] MEDS ORDERED: ceFAZolin 2 GM/50 ML 2 GM/50 ML BAG IV ONE (15:47)
--- NOTE | 2020-11-02 15:57 | HISTORY & PHYSICAL EXAMINATION ---
Admit History - Visit Reason Visit Reason: Other (Hypertension and headache) - : 2 Parity: 1 Risk/History: positive: Gestational diabetes, induced HTN, Pre-eclampsia, Other (Short interpregnancy interval) Complications This : positive: Gestational diabetes, induced HTN Smoking Status: Never smoker - Mother's Labs Mother's Blood Type: positive: O Mother's RH: positive: Positive GBS: positive: Group B Step Negative - Other Maternal History Other Maternal History: Patient is a 30 yo at 37+4 wga here with headache and mild range blood pressures in the setting of GDM, hx of severe pre-eclampsia, and short interpregnancy interval. Patient has had several episodes of severe range blood pressures at home. Had several this am and also had a headache. Presented to L&D for assessment. Normal PIH labs but has had several mild range blood pressures. She has also mild range blood pressures in the last two weeks. She now meets criteria for gestaional hyertension with delivery indicated at 37 weeks. has a lot of fear regarding potential development into pre-eclampsia with severe features as she experienced during her last delivery in June 2019. Delivered via at 35 weeks. About 7 months between pregnancies. No LOF. No VB or CX. Endorses FM. GDM well controlled on glyburide 5 mg po QHS. Failed metformin and insulin. Past Medical History: Reviewed and updated today: Anxiety Depression pyelonephritis pre-eclanpsia with severe feaures Gestational diabetes BMI 34.97 Past Surgical History: [place] Teeth (2010) (06/2019) Social History Summary: Patient has never smoked. Patient has never used smokeless tobacco. 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 No pending deployments but will have 2 detachments in Jun and August. 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 Has gotten COVID vaccine x2 Hx of pre-E with severe features -Meets criteria n 11/02/20 with multiple mild range blood pressures more than 4 hours aprt -on ASA -Normal range labs although anemic -On iron supplementation Hx of GDM/BMI 35 -HbA1c with PNL -early glucola elevated -Profiling shows mainly FBGs all out of range -Has failed metformin and HPH, now on glyburide 5 mg po QHS. Understands risks of hypoglycemia No change in meds -Growth us on 10/06 did nto calculate weight/EFW but notes appropriate for 33+5 -Twice weekly NST and weekly RY at 32 weeks with Q4 week us -CS at 37 weeks given new onset gestational hypertension PTSD: -Sertraline 50 mg po daily- ordered but not taking -Will call in a few days if needs refill -Seeing therapist O pos/Rub imm Declines genetic testing FAS: CL 3.86, anterior, 3VC, EFW appropriate for age (%ile not given) FAS wnl other than suboptimal views of RVOT Influenza: 04/05/2020 TDaP: complete COVID: s/p injection x1 Glucola at 143 at 18 weeks; profiling with elevated FBG. See above for GDM HSV: denies GBS: at 36 weeks- collected MOD: CS at 39 weeks Pap: last pap 2018, repeat due in 2021 Meds/Allgy - Home Medications Home Medications: Ambulatory Orders Medication Instructions Recorded Confirmed Pnv No.95/Ferrous Fum/Folic AC 1 each PO DAILY 02/10/19 08/30/20 [ Caplet] Insulin NPH Human [NovoLIN N] 2 unit SUBQ HS 08/30/20 08/30/20 Sertraline [Zoloft] 50 mg PO DAILY 08/30/20 08/30/20 Ondansetron Odt [Zofran Odt] 4 mg SL Q8H PRN #30 tablet 09/01/20 - Allergies Allergies/Adverse Reactions: Allergies Allergy/AdvReac Type Severity Reaction Status Date / Time No Known Drug Allergies Allergy Verified 05/22/20 21:56 Physical - Abdominal Exam Vital Signs: Temp Pulse Resp BP Pulse Ox 98.2 F 99 18 123/78 98 11/02/20 15:36 11/02/20 08:25 11/02/20 08:25 11/02/20 13:22 11/02/20 08:25 - Monitoring Heart Rate Baseline: 150 mod janet 15x15 accels no decels Strip Review: positive: Category I - Presentation Presentation: positive: Vertex - Vaginal Exam Membranes: positive: Membranes intact - Speculum Exam Speculum Exam Performed: positive: No - Other Notes Labor Progress Note/Additional Text: GEN: NAD HEAD: NCAT EYES: No scleral icterus or conjunctival injection NECK: No cervical LAD or TM CV: RRR RESP: CTAB, normal effort ABD: S&NT/ND PSYCH: appropriate affect NEURO: alert and oriented, normal gait and coordination EXT: WWP Plan for Labor - Plan For Labor Plan for Labor: 30 yo at 37+4 with gestational hypertension, GDM, hx of preeclampsia with severe features, and short intpregnancy interval here for hypertension and headache, proceeding with delivery via . Reviewed risks/benefits/alternatives to Risks include, but are not limited to, bleeding, infection, damage to neatby tissue and organs. On average, EBL of up to 1 liter is considered within normal limits for CS. Risks of blood transfusion include infection Risk of HIV 1/2million nationwide Risk of Hepatitis 1/1 million Risks of transfusion reaction Infection risk moderate given clean/contaminated nature of procedure and IV antibiotics will be given. Damage to nearby tissue and organs including bladder, bowel, ureters, blood vessels, nerves, and fetus Damage may be noted intra-op and may be delayed until after the procedure is complete Reviewed management of complications and efforts to avoid such outcomes but reviewed that they may occur despite our best efforts Written informed consent obtained. Cefazolin 2g IV OCTOR
[2020-11-02] MEDS ORDERED: SODIUM CHLORIDE 0.9% 10 ML VIAL IVP ONE ×2 (15:58→18:31)
[2020-11-02] MEDS ORDERED: ROPIVACAINE 0.5% PF 20 ML AMPULE ONE (15:58)
[2020-11-02] MEDS ORDERED: DEXAMETHASONE 4 MG/ML VIAL ONE (15:58)
[2020-11-02] MEDS ORDERED: MORPHINE 2 MG/ML CARPUJECT IVP PRN (16:03)
[2020-11-02] MEDS ORDERED: ATROPINE ABBOJECT 1 MG/10 ML SYRINGE IVP PRN (16:03)
[2020-11-02] MEDS ORDERED: ONDANSETRON 4 MG/2 ML VIAL IVP PRN (16:03)
[2020-11-02] MEDS ORDERED: ePHEDrine 50 MG/ML VIAL IVP PRN (16:03)
[2020-11-02] MEDS ORDERED: NALOXONE 0.4 MG/ML VIAL IVP PRN (16:03)
[2020-11-02] MEDS ORDERED: HYDROmorphone 0.5 MG/0.5 ML SYRINGE IVP PRN (16:03)
[2020-11-02] MEDS ORDERED: fentaNYL 100 MCG/2 ML VIAL IVP PRN (16:03)
--- NOTE | 2020-11-02 16:03 | ANESTHESIA ---
Pre-Anesthesia VS, & Labs - Diagnosis previous c/s - Procedure repeat c/s Vital Signs: Temp Pulse Resp BP Pulse Ox 36.8 C 99 18 123/78 98 11/02/20 15:36 11/02/20 08:25 11/02/20 08:25 11/02/20 13:22 11/02/20 08:25 Height: 5 ft 4 in Weight (kg): 100.244 kg Body Mass Index: 37.9 BMI Classification: Obese - NPO >8 hours - Is Patient ?: Yes - Lab Results Current Lab Results: Laboratory Tests 11/02/20 08:30: Blood Type O POSITIVE, Antibody Screen NEGATIVE 11/02/20 08:30: Creatinine 0.6, Estimated GFR (MDRD) 118, Uric Acid 5.0, AST 15, ALT < 10 L 11/02/20 08:30: WBC 10.1, RBC 4.46, Hgb 11.3 L, Hct 35.5 L, MCV 79.6 L, MCH 25.3 L, MCHC 31.8 L, RDW 14.6, Plt Count 228, MPV 10.6, Neut # (Auto) 7.2 H, Lymph # (Auto) 2.2, [place] # (Auto) 0.6, Eos # (Auto) 0.0, Baso # (Auto) 0.0, Absolute Nucleated RBC 0.00, Nucleated RBC % 0.0 Fish Bones: 11/02/20 08:30 11/02/20 08:30 Home Medications and Allergies Active Medications Acetaminophen (Acetaminophen 500 Mg Tablet) 1,000 mg PO Q8H [facility] Docusate Sodium (Docusate Sodium 100 Mg Capsule) 100 mg PO BID NANCY Lactated Ringer's (Lr) 1,000 mls @ 100 mls/hr IV .Q10H NANCY Oxytocin/Sodium Chloride (Pitocin/Sodium Chloride) 500 mls @ 999 mls/hr IV PRN PRN; Protocol PRN Reason: POST- HEMORR PREVENTION Cefazolin Sodium/Dextrose (Ancef 2 Gm/50 Ml) 2 gm in 50 mls @ 100 mls/hr IV ONCE ONE Stop: 11/02/20 16:16 Ibuprofen (Ibuprofen 600 Mg Tablet) 600 mg PO Q6H NANCY Ketorolac Tromethamine (Ketorolac 30 Mg/Ml Vial) 30 mg IVP Q6H NANCY Stop: 11/03/20 10:01 Ondansetron HCl (Ondansetron Odt 4 Mg Tablet) 4 mg TL Q4H PRN PRN Reason: Nausea / Vomiting Oxycodone HCl (Oxycodone 5 Mg Tablet) 5 mg PO Q4HR PRN PRN Reason: PAIN Simethicone (Simethicone Chew 80 Mg Tablet) 80 mg PO TID PRN PRN Reason: Gas Sodium Chloride (Sodium Chloride Flush 0.9% 10 Ml Syringe) 10 ml IVP 0100,0900,1700 NANCY Sodium Chloride (Sodium Chloride Flush 0.9% 10 Ml Syringe) 10 ml IVP PRN PRN PRN Reason: NEEDED PER PROVIDER ORDERS Pnv No.95/Ferrous Fum/Folic AC [ Caplet] 1 each PO DAILY 02/10/19 Insulin NPH Human [NovoLIN N] 2 unit SUBQ HS 08/30/20 Sertraline [Zoloft] 50 mg PO DAILY 08/30/20 Allergies/Adverse Reactions: Allergies Allergy/AdvReac Type Severity Reaction Status Date / Time No Known Drug Allergies Allergy Verified 05/22/20 21:56 Anes History & Medical History - Anesthetic History Anesthesia Complications: reports: No previous complications Family history of Anesthesia Complications: Denies Family history of Malignant Hyperthermia: Denies - Medical History Cardiovascular: reports: None Pulmonary: reports: None Gastrointestinal: reports: Ulcers Urinary: reports: Chronic bladder infection Neuro: reports: Motion sickness Musculoskeletal: reports: None Endocrine/Autoimmune: reports: None Blood Disorders: reports: None Skin: reports: Psoriasis Smoking Status: Never smoker - Obstetrical History : 2 Parity: 1 Events: reports: Gestational diabetes, induced HTN, Pre- eclampsia, Other (Short interpregnancy interval) Complications: reports: Gestational diabetes, induced HTN Exam General: Alert, Oriented x3, Cooperative Dental: WNL Mouth Openin Fingerbreadth Neck Mobility: Normal Mallampati classification: II Thyromental Distance: 4-6 cm Respiratory: Lungs clear Cardiovascular: Regular rate Plan Anesthesia Type: Spinal, Transverse Abdominis Plane (TAP) Block Regional Block: Per Surgeon's request for Post Op pain control Consent for Procedure(s) Verified and Reviewed: Yes Code Status: Attempt Resuscitation ASA classification: 2-Mild systemic disease Is this case an emergency?: Yes
[2020-11-02] MEDS ORDERED: ceFAZolin 1 GM VIAL ONE (16:24)
[2020-11-02] MEDS ORDERED: LACTATED RINGERS 1,000 ML IV SCH (17:00)
[2020-11-02] MEDS ORDERED: PHENYLEPHRINE 10 MG/ML VIAL ONE (17:21)
[2020-11-02] MEDS ORDERED: ePHEDrine 50 MG/ML VIAL IVP ONE (17:21)
--- NOTE | 2020-11-02 18:39 | OPERATIVE REPORT ---
Operative Report - General Admit Date: 11/02/20 Planned Procedure: Repeat low transverse Pre-Op Diagnosis: IUP at 37+4 wga, gestational HTN, A2DM, hx of prior Procedure Performed: Repeat low transverse Post Op Diagnosis: Same and delivery of term gestation - Procedure Note Primary Surgeon: Aury Canchola MD Secondary Surgeon: DIYA Encarnacion CNM Anesthesia Provider: Mary Jovel CRNA Pathology: Placenta for routine discard IV Fluids (mL): 2,100 Estimated Blood Loss (mL): 500 Urine Output (mL): 150 Indications: Patient is a 30 yo at 37+4 wga here with headache and mild range blood pressures in the setting of GDM, hx of severe pre-eclampsia, and short interpregnancy interval. Patient has had several episodes of severe range blood pressures at home. Had several this am and also had a headache. Presented to L&D for assessment. Normal PIH labs but has had several mild range blood pressures. She has also mild range blood pressures in the last two weeks. She now meets criteria for gestational hypertension with delivery indicated at 37 weeks. Has a lot of fear regarding potential development into pre-eclampsia with severe features as she experienced during her last delivery in June 2019. Delivered via at 35 weeks. About 7 months between pregnancies. Findings: Male in vertex presentation with Apgars of 9/9, weight pending. Normal uterus. Tubes and ovaries palpate normal. Extensive scar tissue from prior procedure Complications: None - Other Other Information/Narrative: Risks benefits and alternatives of the procedure were discussed. Written informed consent was obtained. Patient was taken to the operating room where spinal anesthesia was placed and found to be adequate. She was prepped and draped in the usual sterile fashion in the dorsal supine position with a leftward tilt. Dalal catheter was in place. SCDs were in place and activated. Cefazolin 2 g IV was given as a preoperative antibiotic. Preoperative timeout was performed. A Pfannenstiel incision was made in the skin with a scalpel and carried through the underlying layer of fascia in a combination of sharp and blunt dissection. The fascia was incised in the midline, and the incision was extended laterally with the Morgan scissors. The superior aspect of the fascial incision was grasped with the Negra clamps, elevated, and the underlying rectus muscles were dissected off bluntly and sharply using the scalpel. Attention was then turned to the inferior aspect of the incision which in a similar fashion was grasped, tented up with Negra clamps, and the underlying rectus muscles dissected off bluntly and sharply using Morgan scissors. The rectus muscles were then in the midline. The peritoneum was identified, tented up, and entered bluntly. The peritoneal incision was extended superiorly and inferiorly with good visualization of the bladder. The bladder that blade was then inserted. A bladder flap was not created. The lower uterine segment of the uterus was identified, and incised in a transverse fashion with a scalpel. The uterus was entered bluntly. The uterine incision was extended in a craniocaudal fashion by manual stretch. The bladder blade was removed. The was delivered from from vertex position using a Kiwi rigid vaccum due to the rigidity of the surrounding scar tissue. Baby was wrapped in a warm sterile towel. Delayed cord clamping was performed. After delay of one minute, the cord was clamped x2 and cut. The infant was handed off to the waiting pediatricians. The placenta was removed with manual expression. The uterus was NOT exteriorized. It was cleared of all clots clots and debris via manual swipe using Ray-Tony x2. The uterine incision was then repaired in a running locked fashion using 0 Vicryl suture. The incisoin was reinforced with a running imbricating layer again using 0-Vicryl suture. Excellent hemostasis was obtained. The gutters were cleared of all clots and debris using sloppy wet laparotomy sponges. The uterine defect was well visualized in normal anatomic position it was noted again to be hemostatic. The peritoneum was then reapproximated with 2-0 Vicryl in a running fashion. The rectus muscles were then reapproximated using interrupted [id number]-[id number]-lpace sutures using 2-0 Chromic. Good hemostasis was noted. The fascia was then closed using 0 Vicryl in a running fashion starting from the left lateral edge to the midline. A second suture was used to close the fascia in a running fashion starting from the right lateral edge and meeting in the midline, again using 0-Vicryl. The subcutaneous tissue was then irrigated and closed using 2-0 chromic in a running subcutaneous suture. Skin was closed in a running subcuticular suture using 4-0 Monocryl. Steri-Strips were applied to reinforce the incision and dressing was applied. Procedure was well-tolerated and without complication. Sponge lap and needle counts were correct x2. Patient was taken to recovery room in stable condition. ARJUN Andersen, assisted with retraction, delivery of the , and suturing.
[2020-11-02] MEDS ORDERED: LACTATED RINGERS 1,000 ML IV ONE (18:52)
--- NOTE | 2020-11-02 19:17 | ANESTHESIA POST OP EVALUATION ---
Anesthesia Post Eval - Post Anesthesia Eval Vitals: Last Vital Signs Temp 36.2 C L 11/02/20 19:09 Pulse 62 11/02/20 19:09 Resp 16 11/02/20 19:09 BP 125/66 11/02/20 19:09 Pulse Ox 100 11/02/20 19:09 CV Function Including HR & BP: Stable Pain Control: Satisfactory Nausea & Vomiting: Negative Mental Status: Baseline Respiratory Status: Airway Patent Hydration Status: Satisfactory Anesthesia Complications: None
[2020-11-02] MEDS: KETOROLAC 30 MG/ML VIAL IVP SCH (20:33)
[2020-11-02] MEDS: DOCUSATE SODIUM 100 MG CAPSULE PO SCH (20:33)
[2020-11-02] MEDS: ACETAMINOPHEN 500 MG TABLET PO SCH (22:01)
[2020-11-03] MEDS: oxyCODONE 5 MG TABLET PO PRN ×3 (00:50→22:11)
[2020-11-03] MEDS: KETOROLAC 30 MG/ML VIAL IVP SCH ×3 (02:57→15:57)
[2020-11-03 06:02] LABS: BASOPHILS % (AUTO) 0.1 %; HCT - HEMATOCRIT 32.5 % (37.0-47.0); HGB - HEMOGLOBIN 10.1 g/dL (12.0-16.0); LYMPHOCYTES # (AUTO) 1.5 10^3/uL (1.5-3.5); LYMPHOCYTES % (AUTO) 10.6 %; MEAN CORPUSCULAR HEMOGLOBIN 25.1 pg (27.0-31.0); MEAN CORPUSCULAR HGB CONC 31.1 g/dL (32.0-36.0); MEAN CORPUSCULAR VOLUME 80.8 fL (81.0-99.0); MEAN PLATELET VOLUME 10.4 fL (7.9-10.8); MONOCYTES # (AUTO) 0.4 10^3/uL (0.0-1.0); MONOCYTES % (AUTO) 3.1 %; NEUTROPHILS # (AUTO) 12.1 10^3/uL (1.5-6.6); NEUTROPHILS % (AUTO) 85.7 %; PLT - PLATELET COUNT 234 10^3/uL (130-450); RED BLOOD COUNT 4.02 10^6/uL (4.20-5.40); RED CELL DISTRIBUTION WIDTH 14.5 % (12.0-15.0); WHITE BLOOD COUNT 14.2 x10^3/uL (4.8-10.8)
[2020-11-03] MEDS: ACETAMINOPHEN 500 MG TABLET PO SCH ×4 (06:10→22:12)
[2020-11-03] MEDS: DOCUSATE SODIUM 100 MG CAPSULE PO SCH ×2 (09:28→21:31)
[2020-11-03] MEDS: SODIUM CHLORIDE FLUSH 0.9% 10 ML SYRINGE IVP SCH ×4 (09:29→15:44)
[2020-11-03] MEDS: IBUPROFEN 600 MG TABLET PO SCH ×5 (10:37→21:31)
[2020-11-03] MEDS: LACTATED RINGERS 1,000 ML IV SCH ×2 (10:38→15:57)
[2020-11-03] MEDS ORDERED: KETOROLAC 30 MG/ML VIAL IVP SCH (16:00)
--- NOTE | 2020-11-03 19:03 | PROVIDER PROGRESS NOTE ---
Subjective - Prog Note Date Prog Note Date: 11/03/20 Prog Note Time: 08:45 - Subjective Subjective: Patient is up and ambulating, tolerating po. Ambulation limited. Dalal removed this am but not yet voiding. Pain is well managed with pain medications. Objective - Vital Signs/Intake & Output Reviewed Vital Signs: Yes Vital Signs: Vital Signs x48h Temp Pulse Resp BP Pulse Ox 11/03/20 15:58 97.5 F L 76 19 115/62 100 11/03/20 12:03 98.1 F 65 16 119/79 100 Intake & Output: Intake & Output 10/31/20 11/01/20 11/02/20 11/03/20 23:59 23:59 23:59 23:59 Output Total 1390 1475 Balance -1390 -1475 - Objective General Appearance: positive: No acute distress Respiratory: positive: No respiratory distress Cardiovascular: positive: Regular rate & rhythm Peripheral Pulses: 2+ Dorsalis pedis (R), 2+ Dorsalis pedis (L) Abdomen: positive: Other (Soft and appropriately tender. Dressing with pale serosang drainage c/w bupivicaine drainage) Skin: positive: Color nml Extremities: positive: Non-tender, Other (mild BLE edema) Neurologic/Psychiatric: positive: Oriented x3 - Lab Results Fish Bones: 11/03/20 05:56 11/02/20 08:30 Other Labs: Lab Results x24hrs 11/03/20 Range/Units 05:56 WBC 14.2 H (4.8-10.8) x10^3/uL RBC 4.02 L (4.20-5.40) 10^6/uL Hgb 10.1 L (12.0-16.0) g/dL Hct 32.5 L (37.0-47.0) % MCV 80.8 L (81.0-99.0) fL MCH 25.1 L (27.0-31.0) pg MCHC 31.1 L (32.0-36.0) g/dL RDW 14.5 (12.0-15.0) % Plt Count 234 (130-450) 10^3/uL MPV 10.4 (7.9-10.8) fL Neut # (Auto) 12.1 H (1.5-6.6) 10^3/uL Lymph # (Auto) 1.5 (1.5-3.5) 10^3/uL [place] # (Auto) 0.4 (0.0-1.0) 10^3/uL Eos # (Auto) 0.0 (0.0-0.7) 10^3/uL Baso # (Auto) 0.0 (0.0-0.1) 10^3/uL Absolute Nucleated RBC 0.00 x10^3/uL Nucleated RBC % 0.0 /100WBC Assessment/Plan - Problem List (1) deliv NOS-unsp Impression: POD#1 s/p rLTCS Doing well No concerns Encourage ambulation Anticipate voiding Anticipate DC home in am.
[2020-11-04] MEDS: IBUPROFEN 600 MG TABLET PO SCH ×4 (05:15→23:54)
[2020-11-04] MEDS: oxyCODONE 5 MG TABLET PO PRN ×2 (05:25→20:58)
[2020-11-04] MEDS: ACETAMINOPHEN 500 MG TABLET PO SCH ×3 (08:05→23:54)
[2020-11-04] MEDS: DOCUSATE SODIUM 100 MG CAPSULE PO SCH (08:05)
--- NOTE | 2020-11-04 09:50 | Discharge Plan ---
Discharge Plan Problem Reviewed?: Yes Disposition: Home, Self Care Condition: Good Prescriptions: Acetaminophen [Acetaminophen Extra Strength] 1,000 mg PO Q8H PRN #60 tablet PRN Reason: Pain Docusate Sodium 100Mg Capsule [Colace 100Mg Capsule] 100 - 200 mg PO BID PRN #60 cap PRN Reason: Constipation Ibuprofen [Motrin] 600 mg PO Q6H PRN #60 tab PRN Reason: Pain oxyCODONE [Roxicodone] 2.5 - 5 mg PO Q4H PRN #24 tablet PRN Reason: Severe Pain Diet: Regular Activity Restrictions: Additional Comments (see below) Shower Restrictions: Yes (see below) Driving Restrictions: Yes (no driving on oxycodone) Additional Instructions or Follow Up instructions: Nothing in the vagina for 6 weeks: No intercourse, tampons, douching Call for: -Fever greater than 100.5 -Pain that does not improve with pain medication -Heavy bleeding in which you are soaking a pad an hour for 2 hours in a row -Incision becomes hot, hard, red, starts to open, or leaks foul smelling fluid No lifting more than 10# for 4 weeks [address] while on narcotics Ok to shower. Let water run over the incision. Do not soap, scrub, or apply lotion. Pat dry with a clean towel or tad a electric wheelchair repairer. The surgical stickers will start to peel off and you can remove them when they do. Otherwise, the provider will remove them at your one week follow-up appointment. OK to use an unscented sanitary napkin or clean washcloth to keep the incision dry if the belly folds over the incision. No Smoking: If you smoke, Please STOP! Call for help. Follow-up with: Dana Canchola MD [Provider Admit Priv/Credential] -
[2020-11-04] MEDS ORDERED: MAGNESIUM HYDROXIDE 2,400 MG/30 ML UDC PO PRN (12:57)
--- NOTE | 2020-11-04 13:01 | PROVIDER PROGRESS NOTE ---
Subjective - Prog Note Date Prog Note Date: 11/04/20 Prog Note Time: 12:58 - Subjective Subjective: Patient is doing well. BPs have been trending up but no PIH symptoms. Up and ambulating and tolerating po. Has not yet had BM and is requesting additional medical assistance. Baby is needing additional support with feeding and will be staying an additional night. VB minimal. Pain well managed. Voiding. Objective - Vital Signs/Intake & Output Reviewed Vital Signs: Yes Vital Signs: Vital Signs x48h Temp Pulse Resp BP Pulse Ox 11/04/20 12:53 122/80 11/04/20 08:11 98.1 F 67 16 111/68 100 11/04/20 05:34 76 19 144/86 H 98 Intake & Output: Intake & Output 11/01/20 11/02/20 11/03/20 11/04/20 23:59 23:59 23:59 23:59 Intake Total 300 1040 Output Total 1390 1475 Balance -1390 -1175 1040 - Objective Neck: positive: Nml inspection Respiratory: positive: No respiratory distress, Breath sounds nml Cardiovascular: positive: Regular rate & rhythm Abdomen: positive: Other (Soft. Appropriately tender. FF below umbi. Dressing removed. Incision line CDi) Skin: positive: Color nml, Warm, Dry Extremities: positive: Non-tender, Pedal edema (mild bilateral and symmetric) Neurologic/Psychiatric: positive: Oriented x3 - Lab Results Fish Bones: 11/03/20 05:56 11/02/20 08:30 Assessment/Plan - Problem List (1) deliv NOS-unsp Impression: POD#2 s/p rLTCS for GHTN BPs in mild range No PIH symptoms cont to monitor Progressing along goals for discharge Infant remains inpatient for additional nutritional support Anticipate DC home tomorrow
[2020-11-05] MEDS: IBUPROFEN 600 MG TABLET PO SCH (06:19)
[2020-11-05] MEDS: ACETAMINOPHEN 500 MG TABLET PO SCH (08:05)
[2020-11-05] MEDS: DOCUSATE SODIUM 100 MG CAPSULE PO SCH (08:05)
[2020-11-05 08:11] VITALS: BP 128/85
--- NOTE | 2020-11-05 11:09 | PROVIDER PROGRESS NOTE ---
Subjective - Prog Note Date Prog Note Date: 11/05/20 Prog Note Time: 10:54 - Subjective Subjective: Patient is up and ambulating, tolerating po, and voiding. Pain is well managed with pain medications. Baby has passed car seat test. Objective - Vital Signs/Intake & Output Reviewed Vital Signs: Yes Vital Signs: Vital Signs x48h Temp Pulse Resp BP Pulse Ox 11/05/20 08:10 98.1 F 103 H 17 128/85 H 100 11/05/20 04:10 97.3 F L 87 18 122/74 100 Intake & Output: Intake & Output 11/02/20 11/03/20 11/04/20 11/05/20 23:59 23:59 23:59 23:59 Intake Total 300 2190 600 Output Total 1390 1475 2 Balance -1390 -1175 2190 598 - Objective General Appearance: positive: No acute distress Neck: positive: Nml inspection Respiratory: positive: No respiratory distress Cardiovascular: positive: Other (RR) Peripheral Pulses: 2+ Dorsalis pedis (R), 2+ Dorsalis pedis (L) Abdomen: positive: Other (S&NT/ND. FF below umbi Incision line CDI with steris in place) Extremities: positive: Non-tender, No pedal edema Neurologic/Psychiatric: positive: Oriented x3 - Lab Results Fish Bones: 11/03/20 05:56 11/02/20 08:30 Assessment/Plan - Problem List (1) deliv NOS-unsp Impression: POD#3 s/p LTCS for GHTN Meetign goals for discharge DC to home
== END 2020-11-05 12:00 | disposition home or self-care (01) | DRG 788 ==
LOC: WFO 08:03 → FBP 08:05 → WFO 15:45 → FBP 15:45
PROVIDERS: ADMIT Obstetrics & Gynecology; ATTEND Obstetrics & Gynecology
PROC: 10D00Z1 Extraction of Products of Conception, Low, Open Approach (ICD-10-PCS; principal; 2020-11-02 15:30)
DX: O13.4 Gestational [pregnancy-induced] hypertension without significant proteinuria, complicating childbirth (principal); O24.425 Gestational diabetes mellitus in childbirth, controlled by oral hypoglycemic drugs; Z3A.37 37 weeks gestation of pregnancy; Z37.0 Single live birth; O34.211 Maternal care for low transverse scar from previous cesarean delivery; N85.8 Other specified noninflammatory disorders of uterus; O99.214 Obesity complicating childbirth; O26.893 Other specified pregnancy related conditions, third trimester; O99.344 Other mental disorders complicating childbirth; F43.10 Post-traumatic stress disorder, unspecified
CPT/HCPCS: 36415; 82565; 82570; 84156; 84450; 84460; 84550; 85025; 86850; 86900; 86901; 99215; A9270; J7120; 99213

== ENCOUNTER 2020-11-10 16:19 | Emergency (ER) | payer OTHER ==
[2020-11-10] MEDS ORDERED: SODIUM CHLORIDE 0.9% 1,000 ML IV STA ×2 (16:34→17:22)
[2020-11-10] MEDS ORDERED: ONDANSETRON 4 MG/2 ML VIAL IVP STA (16:34)
--- NOTE | 2020-11-10 17:00 | ED Physician Documentation ---
PD HPI NVD - Stated complaint Stated Complaint: DIARRHEA,VOMITING - Chief complaint Chief Complaint: Abd Pain - History obtained from History obtained from: Patient - History of Present Illness Timing - onset: Today Timing - duration: Days (1) Timing - details: Abrupt onset Pain level max: 0 Pain level now: 0 Associated symptoms: No: Fever, Abdominal pain, Hematemesis, Melena, Hematochezia, Dizzy, Near syncope / syncope Contributing factors: Recent antibiotics. No: Sick contact, Bad food Improved by: Vomiting Worsened by: Eating - Additonal information Additional information: Patient is a 30-year-old female 8 days status post a . She states that today she began to have nausea, vomiting, diarrhea. Nothing makes it better or worse. No fevers. Diarrhea has been 10-12 times today. She did receive antibiotics for the . Not currently on antibiotics. Denies any sick contact or bad food. Review of Systems Constitutional: denies: Fever, Chills GI: reports: Vomiting, Diarrhea. 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 - Present Medications Home Medications: Ambulatory Orders Medication Instructions Recorded Confirmed oxyCODONE [Roxicodone] 2.5 - 5 mg PO Q4H PRN #24 tablet 11/03/20 11/10/20 - Allergies Allergies/Adverse Reactions: Allergies Allergy/AdvReac Type Severity Reaction Status Date / Time No Known Drug Allergies Allergy Verified 05/22/20 21:56 - Social History Does the pt smoke?: No Smoking Status: Never smoker Does the pt drink ETOH?: No Does the pt have substance abuse?: No - Immunizations Immunizations are current?: Yes PD ED PE NORMAL - Vitals Vital signs reviewed: Yes - General General: Alert and oriented X 3, No acute distress - HEENT HEENT: Moist mucous membranes - Neck Neck: Supple, no meningeal sign - Cardiac Cardiac: RRR - Respiratory Respiratory: No respiratory distress, Clear bilaterally - Abdomen Abdomen: Soft, Non tender, Non distended, Other (inicision is clean, dry and intact. no signs of infection.) - Back Back: No CVA TTP, No spinal TTP - Derm Derm: Warm and dry - Extremities Extremities: No edema, No calf tenderness / cord - Neuro Neuro: Alert and oriented X 3 - Psych Psych: Normal mood, Normal affect Results - Vitals Vitals: Vital Signs - 24 hr 11/10/20 11/10/20 11/10/20 16:22 18:26 19:28 Temperature 36.1 C L Heart Rate 130 H 111 H 117 H Respiratory 16 18 19 Rate Blood Pressure 116/64 132/85 H 130/84 H O2 Saturation 95 99 99 11/10/20 21:01 Temperature Heart Rate 126 H Respiratory 30 H Rate Blood Pressure 123/69 O2 Saturation 99 Oxygen O2 Source Room air - Labs Labs: Laboratory Tests 11/10/20 11/10/20 11/10/20 16:53 16:58 16:58 WBC 15.7 H RBC 5.62 H Hgb 14.2 Hct 44.8 MCV 79.7 L MCH 25.3 L MCHC 31.7 L RDW 15.2 H Plt Count 438 MPV 9.9 Neut # (Auto) 14.8 H Lymph # (Auto) 0.5 L [place] # (Auto) 0.4 Eos # (Auto) 0.0 Baso # (Auto) 0.0 Absolute Nucleated RBC 0.00 Nucleated RBC % 0.0 Sodium 139 Potassium 4.2 Chloride 105 Carbon Dioxide 18 L Anion Gap 16.0 H BUN 23 H Creatinine 1.0 Estimated GFR (MDRD) 66 L Glucose 135 H Calcium 9.0 Total Bilirubin 0.5 AST 27 ALT 23 Alkaline Phosphatase 86 Total Protein 8.2 Albumin 4.0 Globulin 4.2 Albumin/Globulin Ratio 1.0 Lipase 25 Urine Color YELLOW Urine Clarity HAZY Urine pH 5.5 Ur Specific [place] >=1.030 H Urine Protein NEGATIVE Urine Glucose (UA) NEGATIVE Urine Ketones NEGATIVE Urine Occult Blood MODERATE H Urine Nitrite NEGATIVE Urine Bilirubin NEGATIVE Urine Urobilinogen 0.2 (NORMAL) Ur Leukocyte Esterase NEGATIVE Urine RBC 6-10 H Urine WBC 4-5 Ur Squamous Epith Cells MOD Squamous H Urine Bacteria Rare Urine Mucus Few Strands Ur Microscopic Review INDICATED Urine Culture Comments NOT INDICATED Stl C. diff Tox B Gene 11/10/20 19:55 WBC RBC Hgb Hct MCV MCH MCHC RDW Plt Count MPV Neut # (Auto) Lymph # (Auto) [place] # (Auto) Eos # (Auto) Baso # (Auto) Absolute Nucleated RBC Nucleated RBC % Sodium Potassium Chloride Carbon Dioxide Anion Gap BUN Creatinine Estimated GFR (MDRD) Glucose Calcium Total Bilirubin AST ALT Alkaline Phosphatase Total Protein Albumin Globulin Albumin/Globulin Ratio Lipase Urine Color Urine Clarity Urine pH Ur Specific [place] Urine Protein Urine Glucose (UA) Urine Ketones Urine Occult Blood Urine Nitrite Urine Bilirubin Urine Urobilinogen Ur Leukocyte Esterase Urine RBC Urine WBC Ur Squamous Epith Cells Urine Bacteria Urine Mucus Ur Microscopic Review Urine Culture Comments Stl C. diff Tox B Gene NEGATIVE PD MEDICAL DECISION MAKING - ED course Complexity details: reviewed results, re-evaluated patient, considered differential, d/w patient ED course: No significant lab abnormalities other than dehydration. Given 2 L of fluid. C. difficile negative. Stool culture sent. Patient is well-appearing, nontoxic. Afebrile. Tolerating p.o. without difficulty. Feels much better after fluids. Likely viral gastroenteritis. Has Zofran at home. We will continue supportive care and have her follow-up with her doctor. Patient and family counseled regarding signs and symptoms for which I believe and urgent re- evaluation would be necessary. Patient with good understanding of and agreement to plan and is comfortable going home at this time This document was made in part using voice recognition software. While efforts are made to proofread this document, sound alike and grammatical errors may occur. Departure - Departure Disposition: 01 Home, Self Care Clinical Impression: Viral gastroenteritis Condition: Good Instructions: ED Gastroenteritis Viral Follow-Up: Dana Canchola MD [Primary Care Provider] - Within 1 week Comments: Drink plenty of fluids and rest. Return if you worsen. This normally improves within 24 to 36 hours. Your C. difficile test is negative.
[2020-11-10 17:06] LABS: BASOPHILS % (AUTO) 0.3 %; EOSINOPHILS % (AUTO) 0.1 %; HCT - HEMATOCRIT 44.8 % (37.0-47.0); HGB - HEMOGLOBIN 14.2 g/dL (12.0-16.0); LYMPHOCYTES # (AUTO) 0.5 10^3/uL (1.5-3.5); LYMPHOCYTES % (AUTO) 2.9 %; MEAN CORPUSCULAR HEMOGLOBIN 25.3 pg (27.0-31.0); MEAN CORPUSCULAR HGB CONC 31.7 g/dL (32.0-36.0); MEAN CORPUSCULAR VOLUME 79.7 fL (81.0-99.0); MEAN PLATELET VOLUME 9.9 fL (7.9-10.8); MONOCYTES # (AUTO) 0.4 10^3/uL (0.0-1.0); MONOCYTES % (AUTO) 2.6 %; NEUTROPHILS # (AUTO) 14.8 10^3/uL (1.5-6.6); NEUTROPHILS % (AUTO) 93.7 %; PLT - PLATELET COUNT 438 10^3/uL (130-450); RED BLOOD COUNT 5.62 10^6/uL (4.20-5.40); RED CELL DISTRIBUTION WIDTH 15.2 % (12.0-15.0); WHITE BLOOD COUNT 15.7 x10^3/uL (4.8-10.8)
[2020-11-10 17:09] LABS: BILIRUBIN,URINE NEGATIVE (NEGATIVE); GLUCOSE, URINE (UA) NEGATIVE (NEGATIVE); KETONES,URINE (UA) NEGATIVE (NEGATIVE); LEUKOCYTE ESTERASE, URINE NEGATIVE (NEGATIVE); NITRITE,URINE NEGATIVE (NEGATIVE); OCCULT BLOOD,URINE MODERATE (NEGATIVE); PH,URINE 5.5 PH (5.0-7.5); PROTEIN,URINE NEGATIVE (NEGATIVE); UROBILINOGEN,URINE 0.2 (NORMAL) E.U./dL (NORMAL)
[2020-11-10 17:10] LABS: CLARITY,URINE HAZY (CLEAR)
[2020-11-10 17:19] LABS: BACTERIA,URINE Rare /HPF (None Seen); MUCUS,URINE Few Strands; SQUAMOUS EPITHELIAL CELL,UR MOD Squamous (<= Few)
[2020-11-10 17:19] LABS: BILIRUBIN,TOTAL 0.5 mg/dL (0.2-1.0); POTASSIUM 4.2 mmol/L (3.5-5.0); TOTAL PROTEIN 8.2 g/dL (6.7-8.2)
[2020-11-10 22:59] VITALS: BP 122/82
== END 2020-11-10 22:18 | disposition home or self-care (01) ==
LOC: ED 16:19
DX: A08.4 Viral intestinal infection, unspecified (principal); E86.0 Dehydration
CPT/HCPCS: 36415; 80053; 81001; 81003; 81599; 83690; 85025; 87045; 87046; 87086; 87493; 96361; 96374; 99284

== ENCOUNTER 2020-11-14 14:21 | Emergency (ER) | payer OTHER ==
[2020-11-14 14:38] VITALS: BP 142/87
[2020-11-14] MEDS ORDERED: cephALEXin 250 MG CAPSULE PO STA (15:27)
--- NOTE | 2020-11-14 15:33 | ED Physician Documentation ---
History of Present Illness - Stated complaint Stated Complaint: POST OP COMPLICATIONS - Chief complaint Chief Complaint: Wound - History obtained from History obtained from: Patient - History of Present Illness Timing: Today Pain level max: 0 Pain level now: 0 - Additonal information Additional information: Patient is a 30-year-old female who is 12 days status post a . Today noticed drainage from the right side of her surgical incision. Minimal erythema. Nothing makes it better or worse. No pain. No fevers. No chills. 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 : Chronic bladder infection Psych: Depression, Anxiety Musculoskeletal: None Derm: Psoriasis - Past Surgical History Past Surgical History: No /INSURANCE CLAIMS CLERK: section - Present Medications Home Medications: Ambulatory Orders Medication Instructions Recorded Confirmed oxyCODONE [Roxicodone] 2.5 - 5 mg PO Q4H PRN #24 tablet 11/03/20 11/10/20 cephALEXin [Keflex] 500 mg PO Q6H #28 cap 11/14/20 - Allergies Allergies/Adverse Reactions: Allergies Allergy/AdvReac Type Severity Reaction Status Date / Time No Known Drug Allergies Allergy Verified 11/14/20 14:39 - Social History Does the pt smoke?: No Smoking Status: Never smoker Does the pt drink ETOH?: No Does the pt have substance abuse?: No - Immunizations Immunizations are current?: Yes PD ED PE NORMAL - Vitals Vital signs reviewed: Yes - General General: Alert and oriented X 3, No acute distress - HEENT HEENT: Moist mucous membranes - Neck Neck: Supple, no meningeal sign - Cardiac Cardiac: RRR - Respiratory Respiratory: No respiratory distress, Clear bilaterally - Abdomen Abdomen: Soft, Non tender, Non distended, Other (mild drainage from the right side of the incision. minimal erythema.) - Derm Derm: Warm and dry - Extremities Extremities: No edema - Neuro Neuro: Alert and oriented X 3 Results - Vitals Vitals: Vital Signs - 24 hr 11/14/20 14:35 Temperature 36.1 C L Heart Rate 80 Respiratory 16 Rate Blood Pressure 142/87 H O2 Saturation 97 Oxygen O2 Source Room air - Labs Labs: Microbiology 11/14/20 15:21 Wound Culture - Preliminary Abdomen PD MEDICAL DECISION MAKING - ED course Complexity details: considered differential, d/w patient ED course: Patient with a small amount of drainage from the wound. Minimal cellullitis. Will place on antibiotics. Wound culture obtained. She did have mild dysuria as well, but Keflex should cover the majority of UTIs, this also may be irritation from her recent Dalal catheter. Patient counseled regarding signs and symptoms for which I believe and urgent re-evaluation would be necessary. Patient with good understanding of and agreement to plan and is comfortable going home at this time This document was made in part using voice recognition software. While efforts are made to proofread this document, sound alike and grammatical errors may occur. Departure - Departure Disposition: 01 Home, Self Care Clinical Impression: Post-operative infection Qualifiers: Encounter type: initial encounter Postoperative infection type: unspecified type Qualified Code(s): T81.40XA - Infection following a procedure, unspecified, initial encounter Condition: Good Instructions: ED Wound Infec After Surgery Follow-Up: Dana Canchola MD [Provider Admit Priv/Credential] - Within 1 week Prescriptions: cephALEXin [Keflex] 500 mg PO Q6H #28 cap Comments: Take all antibiotics until gone. Keep the wound clean. Return if you worsen. This should improve in the next 24 to 48 hours. Follow-up with your OB for a wound check in 3 to 4 days. Discharge Date/Time: 11/14/20 15:45
== END 2020-11-14 15:45 | disposition home or self-care (01) ==
LOC: ED 14:21
DX: O86.00 Infection of obstetric surgical wound, unspecified (principal)
CPT/HCPCS: 87070; 87077; 87181; 87205; 99283; A9270

== ENCOUNTER 2021-04-07 14:56 | Outpatient (CLI) | payer OTHER ==
--- NOTE | 2021-04-07 18:14 | MRI Report ---
PROCEDURE: Brain W/O INDICATIONS: MIGRAINE TECHNIQUE: Noncontrast axial T1 spin echo, axial T2 fast spin echo, sagittal and axial FLAIR, coronal T2 fast sp in echo, axial gradient echo, axial diffusion and ADC through the brain. COMPARISON: None. FINDINGS: Image quality: Excellent. CSF Spaces: Basal cisterns are patent. No extra-axial fluid collections. Ventricles are normal in size and shape. Brain: No intracranial masses or hemorrhage. Jim/white matter interface is normal. Brainstem appe ars normal. Diffusion-weighted images demonstrate no acute ischemic insult. No chronic ischemic ins ults. Normal intravascular flow voids are present. Skull and face: Calvarium has normal marrow signal. Orbits appear normal. Sinuses: Sinuses and mastoids are clear. IMPRESSION: A cause of headache cannot be seen on these images. No significant brain abnormality can be seen. No masses or mass effect. Reviewed by: Lan Villarreal MD on 04/07/2021 5:13 PM [facility] Approved by: Lan Villarreal MD on 04/07/2021 5:13 PM [facility] Station ID: [id number]
== END 2021-04-07 14:57 | disposition home or self-care (01) ==
LOC: DI 14:56
PROVIDERS: ATTEND Family Medicine
DX: G43.909 Migraine, unspecified, not intractable, without status migrainosus (principal)

== ENCOUNTER 2021-04-30 07:39 | Emergency (ER) | payer OTHER ==
[2021-04-30 08:37] LABS: BILIRUBIN,URINE NEGATIVE (NEGATIVE); GLUCOSE, URINE (UA) NEGATIVE (NEGATIVE); KETONES,URINE (UA) NEGATIVE (NEGATIVE); LEUKOCYTE ESTERASE, URINE SMALL (NEGATIVE); NITRITE,URINE POSITIVE (NEGATIVE); OCCULT BLOOD,URINE TRACE-INTA (NEGATIVE); PROTEIN,URINE NEGATIVE (NEGATIVE); UROBILINOGEN,URINE 0.2 (NORMAL) E.U./dL (NORMAL)
[2021-04-30 08:41] LABS: CLARITY,URINE SL. CLOUDY (CLEAR); HCG UR QUAL NEGATIVE
[2021-04-30 08:43] LABS: BASOPHILS % (AUTO) 0.2 %; EOSINOPHILS % (AUTO) 0.3 %; HCT - HEMATOCRIT 38.1 % (37.0-47.0); HGB - HEMOGLOBIN 12.4 g/dL (12.0-16.0); LYMPHOCYTES # (AUTO) 1.4 10^3/uL (1.5-3.5); MEAN CORPUSCULAR HEMOGLOBIN 27.4 pg (27.0-31.0); MEAN CORPUSCULAR HGB CONC 32.5 g/dL (32.0-36.0); MEAN CORPUSCULAR VOLUME 84.1 fL (81.0-99.0); MEAN PLATELET VOLUME 9.4 fL (7.9-10.8); MONOCYTES # (AUTO) 0.9 10^3/uL (0.0-1.0); MONOCYTES % (AUTO) 8.5 %; NEUTROPHILS # (AUTO) 8.4 10^3/uL (1.5-6.6); NEUTROPHILS % (AUTO) 77.6 %; PLT - PLATELET COUNT 227 10^3/uL (130-450); RED BLOOD COUNT 4.53 10^6/uL (4.20-5.40); RED CELL DISTRIBUTION WIDTH 13.2 % (12.0-15.0); WHITE BLOOD COUNT 10.8 x10^3/uL (4.8-10.8)
[2021-04-30 08:44] LABS: BACTERIA,URINE Moderate /HPF (None Seen); SQUAMOUS EPITHELIAL CELL,UR MANY Squamous (<= Few)
[2021-04-30 08:56] LABS: ALBUMIN 4.1 g/dL (3.2-5.5); ALBUMIN/GLOBULIN RATIO 1.2 (1.0-2.2); BILIRUBIN,TOTAL 0.7 mg/dL (0.2-1.0); CALCIUM 8.7 mg/dL (8.5-10.3); TOTAL PROTEIN 7.4 g/dL (6.7-8.2)
[2021-04-30] MEDS ORDERED: cefTRIAXone 1 GM VIAL IM STA (10:21)
[2021-04-30] MEDS ORDERED: LIDOCAINE 1% 2 ML VIAL MC ONE (10:21)
[2021-04-30] MEDS ORDERED: KETOROLAC 60 MG/2 ML VIAL IM STA (10:23)
--- NOTE | 2021-04-30 12:18 | ED Physician Documentation ---
PD HPI ABD PAIN - Stated complaint Stated Complaint: RT SIDE PX - Chief complaint Chief Complaint: Abd Pain - History obtained from History obtained from: Patient - History of Present Illness Timing - onset: Enter time (2300), Last night Timing - duration: Hours Timing - details: Gradual onset, Still present Quality: Sharp, Pain Location: RUQ Improved by: Laying still Worsened by: Moving, Breathing, Position, Palpation Associated symptoms: Nausea, Dysuria. No: Vomiting Similar symptoms before: Has not had sx before Recently seen: Not recently seen - Additional information Additional information: Previously well 30-year-old female has developed pain in the right upper quadrant. She states the pain has been present for about 3 days and this seems worse after she eats. The pain has progressed and the pain has persisted.She does have some mild nausea associated with this as well. Review of Systems Constitutional: reports: Chills. denies: Fever Eyes: denies: Decreased vision Ears: denies: Ear pain Nose: denies: Congestion Throat: denies: Sore throat Respiratory: denies: Cough GI: reports: Abdominal Pain, Nausea. denies: Vomiting : reports: Dysuria, Frequency Musculoskeletal: reports: Back pain. denies: Neck pain, Extremity pain Neurologic: denies: Generalized weakness, Focal weakness, Numbness PD PAST MEDICAL HISTORY - Past Medical History Past Medical History: Yes Cardiovascular: None Respiratory: None Neuro: Motion sickness Endocrine/Autoimmune: None GI: Ulcers CLINICAL DIRECTOR: None : Chronic bladder infection Psych: Depression, Anxiety Musculoskeletal: None Derm: Psoriasis - Past Surgical History Past Surgical History: No /CLINICAL DIRECTOR: section - Present Medications Home Medications: Ambulatory Orders Medication Instructions Recorded Confirmed Diclofenac Sodium [Diclofenac 100 gm TP TID 04/30/21 04/30/21 Sodium 3%] Sulfamethox/Trimeth 800/160 1 each PO BID #14 tablet 04/30/21 [Bactrim Ds] - Allergies Allergies/Adverse Reactions: Allergies Allergy/AdvReac Type Severity Reaction Status Date / Time No Known Drug Allergies Allergy Verified 04/30/21 07:45 - Social History Does the pt smoke?: No Smoking Status: Never smoker Does the pt drink ETOH?: No Does the pt have substance abuse?: No - Immunizations Immunizations are current?: Yes PD ED PE NORMAL - Vitals Vital signs reviewed: Yes (tachy and hypertensive ) - General General: Alert and oriented X 3, No acute distress, Well developed/nourished - HEENT HEENT: Atraumatic, PERRL, EOMI - Neck Neck: Supple, no meningeal sign, No bony TTP - Cardiac Cardiac: RRR, No murmur - Respiratory Respiratory: No respiratory distress, Clear bilaterally - Abdomen Abdomen: Normal bowel sounds, Soft, Non distended, No organomegaly, Other (RUQ tenderness and tenderness to bimanual palpation of the right kidney ) - Back Back: No spinal TTP, Other (R CVA tenderness ) - Derm Derm: Normal color, Warm and dry, No rash - Extremities Extremities: No deformity, No edema - Neuro Neuro: Alert and oriented X 3, tracer powder blender 2-12 intact, No motor deficit, No sensory deficit, Normal speech Eye Opening: Spontaneous Motor: Obeys Commands Verbal: Oriented GCS Score: 15 - Psych Psych: Normal mood, Normal affect Results - Vitals Vitals: Vital Signs - 24 hr 04/30/21 04/30/21 07:43 13:04 Temperature 36.7 C 36.5 C Heart Rate 129 H 96 Respiratory 16 16 Rate Blood Pressure 150/91 H 140/88 H O2 Saturation 98 98 Oxygen O2 Source Room air - Labs Labs: Laboratory Tests 04/30/21 04/30/21 04/30/21 08:14 08:38 08:38 WBC 10.8 RBC 4.53 Hgb 12.4 Hct 38.1 MCV 84.1 MCH 27.4 MCHC 32.5 RDW 13.2 Plt Count 227 MPV 9.4 Neut # (Auto) 8.4 H Lymph # (Auto) 1.4 L [place] # (Auto) 0.9 Eos # (Auto) 0.0 Baso # (Auto) 0.0 Absolute Nucleated RBC 0.00 Nucleated RBC % 0.0 Sodium 135 Potassium 4.0 Chloride 104 Carbon Dioxide 22 Anion Gap 9.0 BUN 17 Creatinine 1.0 Estimated GFR (MDRD) 66 L Glucose 114 H Calcium 8.7 Total Bilirubin 0.7 AST 17 ALT 16 Alkaline Phosphatase 60 Total Protein 7.4 Albumin 4.1 Globulin 3.3 Albumin/Globulin Ratio 1.2 Lipase 27 Urine Color YELLOW Urine Clarity SL. CLOUDY Urine pH 6.0 Ur Specific [place] 1.015 Urine Protein NEGATIVE Urine Glucose (UA) NEGATIVE Urine Ketones NEGATIVE Urine Occult Blood TRACE-INTA Urine Nitrite POSITIVE H Urine Bilirubin NEGATIVE Urine Urobilinogen 0.2 (NORMAL) Ur Leukocyte Esterase SMALL H Urine RBC 6-10 H Urine WBC 11-25 H Ur Squamous Epith Cells MANY Squamous H Urine Bacteria Moderate H Ur Microscopic Review INDICATED Urine Culture Comments NOT INDICATED Urine HCG, Qual NEGATIVE - Rads (name of study) u/s abd Radiology: Prelim report reviewed (Impression: 1. No evidence of cholelithiasis or cholecystitis. Increased hepatic echogenicity compatible with steatosis.), EMP read indepedently, See rad report PD MEDICAL DECISION MAKING - ED course Complexity details: reviewed results, re-evaluated patient, considered differential, d/w patient ED course: 30-year-old female with right upper quadrant abdominal pain has flank tenderness on examination she has a negative gallbladder ultrasound and she has evidence of infection on evaluation of the urine. She is administered Rocephin and Toradol. Departure - Departure Disposition: 01 Home, Self Care Clinical Impression: Pyelonephritis Condition: Stable Instructions: ED Kidney Infec Female Follow-Up: NAILA SANCHEZ MD [Primary Care Provider] - Prescriptions: Sulfamethox/Trimeth 800/160 [Bactrim Ds] 1 each PO BID #14 tablet Comments: Arlette, today it looks like you have infection in your right kidney. Pain from this may outlast the infection itself. We will have a confirmation sensitivity in 2 to 3 days. Your prescription has been E scribed to [facility] in [place] Discharge Date/Time: 04/30/21 13:04
--- NOTE | 2021-04-30 12:42 | Ultrasound Report ---
PROCEDURE: Posterior INDICATIONS: ] Quadrant pain. TECHNIQUE: Real-time focused scanning was performed of the right upper quadrant, with image documentation. COMPARISON: None. FINDINGS: The liver demonstrates increased hepatic echogenicity with coarse sonographic echotexture consistent with fatty infiltration. Gallbladder demonstrates no stones, wall thickening, or pericholecystic fluid. No intra or extra hepatic biliary ductal dilatation. The visualized common bile duct measures up to 2 mm. The pancreas appears unremarkable sonographically. Right kidney measures 10.4 cm with a slightly lobulated contour. No hydronephrosis. IMPRESSION: 1. No evidence of cholelithiasis or cholecystitis. 2. Increased hepatic echogenicity compatible with steatosis. Reviewed by: Hemanth Bejarano MD on 04/30/2021 11:41 AM [facility] Approved by: Hemanth Bejarano MD on 04/30/2021 11:41 AM [facility] Station ID: [id number]
[2021-04-30 13:06] VITALS: BP 140/88
== END 2021-04-30 13:04 | disposition home or self-care (01) ==
LOC: ED 07:39
DX: N12 Tubulo-interstitial nephritis, not specified as acute or chronic (principal)
CPT/HCPCS: 36415; 80053; 81001; 81003; 81025; 83690; 85025; 87086; 96372; 99284

== ENCOUNTER 2021-05-23 11:01 | Emergency (ER) | payer OTHER ==
[2021-05-23 11:22] LABS: BILIRUBIN,URINE NEGATIVE (NEGATIVE); GLUCOSE, URINE (UA) NEGATIVE (NEGATIVE); KETONES,URINE (UA) NEGATIVE (NEGATIVE); LEUKOCYTE ESTERASE, URINE NEGATIVE (NEGATIVE); NITRITE,URINE NEGATIVE (NEGATIVE); OCCULT BLOOD,URINE NEGATIVE (NEGATIVE); PH,URINE 6.5 PH (5.0-7.5); PROTEIN,URINE NEGATIVE (NEGATIVE); UROBILINOGEN,URINE 0.2 (NORMAL) E.U./dL (NORMAL)
[2021-05-23 11:26] LABS: CLARITY,URINE CLEAR (CLEAR); HCG UR QUAL NEGATIVE
[2021-05-23 11:39] LABS: BASOPHILS % (AUTO) 0.1 %; EOSINOPHILS # (AUTO) 0.1 10^3/uL (0.0-0.7); EOSINOPHILS % (AUTO) 0.7 %; HCT - HEMATOCRIT 39.2 % (37.0-47.0); HGB - HEMOGLOBIN 12.4 g/dL (12.0-16.0); LYMPHOCYTES # (AUTO) 2.6 10^3/uL (1.5-3.5); LYMPHOCYTES % (AUTO) 35.8 %; MEAN CORPUSCULAR HGB CONC 31.6 g/dL (32.0-36.0); MEAN CORPUSCULAR VOLUME 85.4 fL (81.0-99.0); MEAN PLATELET VOLUME 9.7 fL (7.9-10.8); MONOCYTES # (AUTO) 0.6 10^3/uL (0.0-1.0); MONOCYTES % (AUTO) 7.6 %; NEUTROPHILS % (AUTO) 55.5 %; PLT - PLATELET COUNT 299 10^3/uL (130-450); RED BLOOD COUNT 4.59 10^6/uL (4.20-5.40); RED CELL DISTRIBUTION WIDTH 13.5 % (12.0-15.0); WHITE BLOOD COUNT 7.3 x10^3/uL (4.8-10.8)
[2021-05-23 11:55] LABS: ALBUMIN 4.3 g/dL (3.2-5.5); ALBUMIN/GLOBULIN RATIO 1.3 (1.0-2.2); BILIRUBIN,TOTAL 0.5 mg/dL (0.2-1.0); CALCIUM 9.3 mg/dL (8.5-10.3); CREATININE 0.8 mg/dL (0.4-1.0); TOTAL PROTEIN 7.7 g/dL (6.7-8.2)
--- NOTE | 2021-05-23 12:03 | ED Physician Documentation ---
PD HPI FEMALE - Stated complaint Stated Complaint: FEMALE /NAUSEA - Chief complaint Chief Complaint: Abd Pain - History obtained from History obtained from: Patient - History of Present Illness Timing - onset: How many days ago (1-2) Timing - duration: Days Timing - details: Gradual onset, Still present, Waxing and waning Associated symptoms: Abdominal pain, Urinary frequency. No: Fever, Back pain, Vaginal discharge, Dysuria Contributing factors: Sexually active. No: , Exposed to STD Similar symptoms before: Diagnosis (seen a month ago for similar and Dx with UTI. Urine culture came back with negative culture though. Rx with abx and improved. Pain back again now.) Recently seen: Emergency Dept Review of Systems Constitutional: denies: Fever, Chills Nose: denies: Rhinorrhea / runny nose, Congestion Throat: denies: Sore throat Respiratory: denies: Cough GI: reports: Abdominal Pain, Nausea. denies: Vomiting, Constipation, Diarrhea : reports: Frequency. denies: Dysuria, Discharge Skin: denies: Rash PD PAST MEDICAL HISTORY - Past Medical History Cardiovascular: None Respiratory: None Neuro: Motion sickness Endocrine/Autoimmune: None GI: Ulcers BOLT HEADER: None : Chronic bladder infection Psych: Depression, Anxiety Musculoskeletal: None Derm: Psoriasis - Past Surgical History Past Surgical History: No /BOLT HEADER: section - Present Medications Home Medications: Ambulatory Orders Medication Instructions Recorded Confirmed Diclofenac Sodium [Diclofenac 100 gm TP TID 04/30/21 04/30/21 Sodium 3%] Sulfamethox/Trimeth 800/160 1 each PO BID #14 tablet 04/30/21 [Bactrim Ds] - Allergies Allergies/Adverse Reactions: Allergies Allergy/AdvReac Type Severity Reaction Status Date / Time No Known Drug Allergies Allergy Verified 05/23/21 11:09 - Social History Does the pt smoke?: No Smoking Status: Never smoker Does the pt drink ETOH?: No Does the pt have substance abuse?: No - Immunizations Immunizations are current?: Yes PD ED PE NORMAL - Vitals Vital signs reviewed: Yes - General General: Alert and oriented X 3, No acute distress, Well developed/nourished - HEENT HEENT: Moist mucous membranes, Pharynx benign - Neck Neck: Supple, no meningeal sign, No adenopathy - Cardiac Cardiac: RRR, No murmur - Respiratory Respiratory: Clear bilaterally - Abdomen Abdomen: Normal bowel sounds, Soft, Non distended, No organomegaly, Other (tender right lower abd to suprapubic area. No percussion nor rebound tenderness. RIGht DVA Area some tender. ) - Female Female : Deferred - Rectal Rectal: Deferred - Derm Derm: Normal color, Warm and dry - Neuro Neuro: Alert and oriented X 3, No motor deficit, Normal speech Results - Vitals Vitals: Oxygen O2 Source Room air - Labs Labs: Laboratory Tests 05/23/21 05/23/21 05/23/21 11:14 11:25 11:25 WBC 7.3 RBC 4.59 Hgb 12.4 Hct 39.2 MCV 85.4 MCH 27.0 MCHC 31.6 L RDW 13.5 Plt Count 299 MPV 9.7 Neut # (Auto) 4.0 Lymph # (Auto) 2.6 Bowman # (Auto) 0.6 Eos # (Auto) 0.1 Baso # (Auto) 0.0 Absolute Nucleated RBC 0.00 Nucleated RBC % 0.0 Sodium 140 Potassium 4.0 Chloride 104 Carbon Dioxide 28 Anion Gap 8.0 BUN 11 Creatinine 0.8 Estimated GFR (MDRD) 85 L Glucose 99 Calcium 9.3 Total Bilirubin 0.5 AST 20 ALT 19 Alkaline Phosphatase 67 Total Protein 7.7 Albumin 4.3 Globulin 3.4 Albumin/Globulin Ratio 1.3 Lipase 35 Urine Color YELLOW Urine Clarity CLEAR Urine pH 6.5 Ur Specific Cropsey 1.020 Urine Protein NEGATIVE Urine Glucose (UA) NEGATIVE Urine Ketones NEGATIVE Urine Occult Blood NEGATIVE Urine Nitrite NEGATIVE Urine Bilirubin NEGATIVE Urine Urobilinogen 0.2 (NORMAL) Ur Leukocyte Esterase NEGATIVE Ur Microscopic Review NOT INDICATED Urine Culture Comments NOT INDICATED Urine HCG, Qual NEGATIVE C. glabrata (PCR) C. krusei (PCR) Zainab species DNA T. vaginalis (PCR) Bact Vaginosis (PCR) 05/23/21 14:22 WBC RBC Hgb Hct MCV MCH MCHC RDW Plt Count MPV Neut # (Auto) Lymph # (Auto) Bowman # (Auto) Eos # (Auto) Baso # (Auto) Absolute Nucleated RBC Nucleated RBC % Sodium Potassium Chloride Carbon Dioxide Anion Gap BUN Creatinine Estimated GFR (MDRD) Glucose Calcium Total Bilirubin AST ALT Alkaline Phosphatase Total Protein Albumin Globulin Albumin/Globulin Ratio Lipase Urine Color Urine Clarity Urine pH Ur Specific Cropsey Urine Protein Urine Glucose (UA) Urine Ketones Urine Occult Blood Urine Nitrite Urine Bilirubin Urine Urobilinogen Ur Leukocyte Esterase Ur Microscopic Review Urine Culture Comments Urine HCG, Qual C. glabrata (PCR) NEGATIVE C. krusei (PCR) NEGATIVE Zainab species DNA NEGATIVE T. vaginalis (PCR) NEGATIVE Bact Vaginosis (PCR) NEGATIVE - Rads (name of study) abd/pelvic CT Radiology: Prelim report reviewed (normal appendix. No stones. No cause of the acute pain identified. Incidental left kidney cyst. ), See rad report PD MEDICAL DECISION MAKING - ED course Complexity details: reviewed results, re-evaluated patient (noraml CT. consider ovarian pain, intestinal such as colitis, constipation, musculoskeletal causes. ), considered differential, d/w patient ED course: pending test of BV screen was negative. My narcotic documentation: acute pain process with intended short term use. Departure - Departure Disposition: 01 Home, Self Care Clinical Impression: Right sided abdominal pain Condition: Stable Record reviewed to determine appropriate education?: Yes Instructions: ED Abdominal Pain Female Non-Specific Abdominal Pain Follow-Up: NAILA SANCHEZ MD [Primary Care Provider] - Comments: At this point a an obvious cause for your pain is not identified. Your urine test looked good today without any signs of infection. The back material vaginitis test is still pending and will call you later with the results. Your CT scan does not show any acute obvious abnormality (no masses, abscesses, kidney stones, appendicitis, other acute problems). At this point considerations would be possible ovarian or endometrial inflammation, possible colon related pain such as colitis inflammation or other inflammatory processes. I would consider regular use of an anti-inflammatory such as Advil ibuprofen or naproxen. You can use [id number] of either, and use 2 tablets twice daily for the next week with food. To that add Tylenol every 4-6 hours if needed for pain. Also consider a mild stool softener such as docusate daily for the next several days to a week. Follow-up with your primary care tomorrow as planned for recheck. Return sooner if worse. Discharge Date/Time: 05/23/21 15:29
[2021-05-23] MEDS ORDERED: KETOROLAC 30 MG/ML VIAL IVP STA (12:30)
[2021-05-23] MEDS ORDERED: IOPAMIDOL-300 100 ML VIAL ONE (12:42)
[2021-05-23] MEDS ORDERED: IOPAMIDOL-300 100 ML VIAL IVP ONE (13:05)
--- NOTE | 2021-05-23 14:17 | CT Report ---
PROCEDURE: Abdomen/Pelvis W INDICATIONS: right abd pain CONTRAST: IV CONTRAST: Isovue 300 ml: 100 PO CONTRAST: *NO PO CONTRAST TECHNIQUE: After the administration of IV contrast, 5 mm thick sections acquired from the diaphragms to the symp hysis. 5 mm thick coronal and sagittal reformats were acquired. For radiation dose reduction, the f ollowing was used: automated exposure control, adjustment of mA and/or kV according to patient size. COMPARISON: Correlation is made with recent prior abdominal ultrasound, 04/30/2021. FINDINGS: Image quality: Excellent. ABDOMEN: Lung bases: Lung bases are clear. Heart size is normal. Solid organs: Diffuse fatty liver infiltration can be seen. The liver demonstrates normal size and demonstrates no focal lesion. The spleen demonstrates normal size, without a focal abnormality identi fied. Gallbladder wall does not appear thickened. Biliary system is non dilated. Pancreas enhances norm ally. No adrenal nodules. Kidneys demonstrate normal size and enhancement, without hydronephrosis. A low-density lesion can be seen within the left mid kidney that measures approximate 18 Hounsfield units and measures 13 mm. Peritoneum and bowel: Bowel loops demonstrate normal wall thickness and caliber. No free fluid or a ir. A normal appendix is incidentally noted. Nodes and vessels: No retroperitoneal or mesenteric adenopathy by size criteria. Aorta and inferior vena cava are normal in size. Miscellaneous: A mild fat-containing periumbilical hernia is seen. PELVIS: Genitourinary: Bladder wall thickness is normal. The uterus demonstrates an unremarkable appearance for age. An IUD is seen at the expected location. No adnexal masses are seen. Miscellaneous: No inguinal hernias or adenopathy. Bones: No suspicious bony lesions. No vertebral body compression fractures. IMPRESSION: Normal appendix. A cause of right-sided abdominal pain is not identified. The gallbladder appears normal by CT. If there is strong clinical concern for cholecystitis, please c onsider a follow-up right upper quadrant ultrasound for further evaluation. A 13 mm low-density lesion is incidentally noted within the left kidney. This is felt most likely to represent a mildly hyperdense cyst. When clinically appropriate, please consider a dedicated renal ul trasound for further evaluation/ confirmation. Incidental note is made of: Fatty liver infiltration Fat-containing periumbilical hernia IUD Reviewed by: Lan Villarreal MD on 05/23/2021 1:16 PM [facility] Approved by: Lan Villarreal MD on 05/23/2021 1:16 PM [facility] Station ID: [id number]
[2021-05-23 15:29] VITALS: BP 133/83
[2021-05-23 16:32] LABS: BACTERIAL VAGINOSIS DNA NEGATIVE (NEGATIVE); CANDIDA GLABRATA DNA NEGATIVE (NEGATIVE); CANDIDA GROUP DNA NEGATIVE (NEGATIVE); CANDIDA KRUSEI DNA NEGATIVE (NEGATIVE); TRICHOMONAS VAGINALIS DNA NEGATIVE (NEGATIVE)
== END 2021-05-23 15:29 | disposition home or self-care (01) ==
LOC: ED 11:01
DX: R10.9 Unspecified abdominal pain (principal)
CPT/HCPCS: 36415; 74177; 80053; 81003; 81025; 83690; 85025; 87481; 87661; 87801; 96374; 99282; 99284; Q9967; 81001; 87086

== ENCOUNTER 2022-04-05 08:00 | Outpatient (CLI) | payer OTHER | END 2022-04-05 23:59 | disposition home or self-care (01) | LOC: LAB.N 08:00 | PROVIDERS: ATTEND Family Medicine | DX: N39.0 Urinary tract infection, site not specified (principal) | CPT/HCPCS: 87086; 87181 ==

== ENCOUNTER 2022-04-20 08:00 | Outpatient (CLI) | payer OTHER | END 2022-04-20 23:59 | disposition home or self-care (01) | LOC: LAB.N 08:00 | PROVIDERS: ATTEND Family Medicine | DX: N39.0 Urinary tract infection, site not specified (principal) | CPT/HCPCS: 87086; 87181 ==

== ENCOUNTER 2022-07-17 07:00 | Outpatient (CLI) | payer OTHER ==
--- NOTE | 2022-07-17 09:08 | MRI Report ---
PROCEDURE: CERVICAL SPINE WO INDICATIONS: MONOPLEGIA, WEAKNESS TECHNIQUE: Noncontrast sagittal T1 spin echo and T2 fast spin echo, sagittal STIR, foraminal oblique sagittal T2 fast spin echo, and axial gradient echo or T2 fast spin echo through the cervical spine. COMPARISON: None. FINDINGS: Image quality: Excellent. Alignment and Curvature: There is normal bony alignment. Bone Marrow: Marrow demonstrates normal overall signal. Spinal Cord: Visualized spinal cord has normal size and signal. No cerebellar tonsillar herniation. Paraspinous Soft Tissues: No paravertebral masses. Prevertebral soft tissues are normal in thicknes s. C2-C3: Normal in appearance. C3-C4: Normal in appearance. C4-C5: Normal in appearance. C5-C6: Normal in appearance. C6-C7: Normal in appearance. C7-T1: Normal in appearance. IMPRESSION: Unremarkable cervical spine MRI. No canal stenosis or foraminal stenosis. Unremarkable appearance of cervical cord. Reviewed by: Filiberto Parks MD on 07/17/2022 9:07 AM PST Approved by: Filiberto Parks MD on 07/17/2022 9:07 AM PST Station ID: [id number]
--- NOTE | 2022-07-17 09:46 | MRI Report ---
PROCEDURE: THORACIC SPINE WO INDICATIONS: MONOPLEGIA, WEAKNESS TECHNIQUE: Noncontrast sagittal T1 spine echo and T2 fast spin echo, sagittal STIR, axial T1 and T2 fast spin ec ho through the thoracic spine. COMPARISON: None. FINDINGS: Image quality: Excellent. Alignment and Curvature: There is normal bony alignment. Bone Marrow: Marrow is of normal overall signal. No acute vertebral body compression fractures. Spinal Cord: Visualized spinal cord is normal in size and signal. Paraspinous Soft Tissues: No paravertebral masses. Miscellaneous: On axial images, central canal and foramina appear widely patent at all scanned level s. IMPRESSION: Unremarkable thoracic spine MRI. No canal stenosis or foraminal stenosis. Normal cord si gnal caliber and signal characteristics. Reviewed by: Filiberto Parks MD on 07/17/2022 9:45 AM PST Approved by: Filiberto Parks MD on 07/17/2022 9:45 AM [facility] Station ID: [id number]
--- NOTE | 2022-07-17 09:55 | MRI Report ---
PROCEDURE: LUMBAR SPINE WO INDICATIONS: MONOPLEGIA, WEAKNESS TECHNIQUE: Noncontrast sagittal T1 spin echo and T2 fast echo, sagittal STIR, axial T1 and T2 fast spin echo thr ough the lumbar spine. In cases with scoliosis, additional coronal T2 fast spin echo may be performe d. COMPARISON: None. FINDINGS: Image quality: Excellent. Alignment and Curvature: There is normal bony alignment. Bone Marrow: Marrow is of normal overall signal. No acute vertebral body compression fractures. Spinal Cord: Conus medullaris terminates at the L2 level. Visualized cord demonstrates normal signa l and size. Paraspinous Soft Tissues: No paravertebral masses. T12-L1: Normal in appearance. L1-L2: Normal in appearance. L2-L3: Normal in appearance. L3-L4: Mild facet hypertrophy. No canal stenosis or foraminal stenosis. L4-L5: Mild facet hypertrophy. No canal stenosis or foraminal stenosis. L5-S1: Normal in appearance. IMPRESSION: 1. Mild facet hypertrophy at L3-L4 and L4-L5. 2. Otherwise unremarkable lumbar spine MRI. No canal stenosis or foraminal stenosis. Reviewed by: Filiberto Parks MD on 07/17/2022 9:53 AM PST Approved by: Filiberto Parks MD on 07/17/2022 9:53 AM PST Station ID: [id number]
== END 2022-07-17 07:01 | disposition home or self-care (01) ==
LOC: DI 07:00
PROVIDERS: ATTEND Physician Assistant
DX: M47.816 Spondylosis without myelopathy or radiculopathy, lumbar region (principal)

== ENCOUNTER 2022-11-02 08:45 | Outpatient (CLI) | payer OTHER | END 2022-11-02 09:00 | disposition home or self-care (01) | LOC: LAB.N 08:45 | PROVIDERS: ATTEND Registered Nurse | DX: N39.0 Urinary tract infection, site not specified (principal) | CPT/HCPCS: 87086; 87181 ==

== ENCOUNTER 2022-11-21 12:45 | Outpatient (CLI) | payer OTHER | END 2022-11-21 13:00 | disposition home or self-care (01) | LOC: LAB.N 12:45 | PROVIDERS: ATTEND Registered Nurse | DX: N39.0 Urinary tract infection, site not specified (principal) | CPT/HCPCS: 87086; 87181 ==